=== PATIENT | female | born 1960 | race Caucasian/White ===

== ENCOUNTER 2025-07-08 10:15 | Inpatient (IN) | payer OTHER, SELFPAY ==
[2025-07-08] VITALS (8 sets, daily range): BP systolic 118–139; BP diastolic 64–73; PULSE 65–95; RESP 16; TEMP 36.8–38; O2SAT 93–99; BMI 24.8; BMI 24.7
--- NOTE | 2025-07-08 10:37 | CT_ITS ---
PROCEDURE: ABDOMEN/PELVIS W IV CONT ONLY 07/08/2025 REASON FOR EXAM: LOWER ABD PAIN TECHNIQUE: Procedure Code: [id number] Modality: CT Procedure: ABDOMEN/PELVIS W IV CONT ONLY Coronal and Sagittal reconstruction series were provided. CONTRAST: Isovue 370 VOLUME: 100 mL One or more dose reduction techniques were used (e.g., Automated exposure control, adjustment of the mA and/or kV according to patient size, use of iterative reconstruction technique. RADIATION DOSE SUMMARY: CTDlvol: 15.35 mGy DLP: 1137.56 mGycm COMPARISON: None. FINDINGS: Lung bases: Liver: Hepatomegaly with the liver measures 20 cm in length. Gallbladder: Cholelithiasis. No biliary dilation. Spleen: Unremarkable. Pancreas: Unremarkable. Adrenals: Unremarkable. Kidneys: No hydronephrosis. No nephrolithiasis. Bladder: Unremarkable. Reproductive Organs: Unremarkable. Bowel: Extensive sigmoid colon diverticulosis with mural wall thickening consistent with acute diverticulitis. Appendix: Normal. Lymph nodes: No lymphadenopathy. Vasculature: No aneurysm. Atherosclerotic calcifications. Peritoneum / Retroperitoneum: A 2.6 x 2.3 x 2.3 cm collection with fluid and air in the pelvis. Another more anterior 3.4 x 2.5 x 2.6 cm collection contains air and fluid in the pelvis consistent with abscess and surrounded by peritoneal fat stranding. No free air. Bones: No acute bony abnormalities. CT/Abdomen/Pelvis W IV Cont ONLY IMPRESSION: Acute sigmoid diverticulitis with two pelvic abscesses measuring 2.3 x 2.3 x 2. 3 cm and 3.4 x 2.5 x 2.6 cm. Cholelithiasis. Reading Location: [id number]
--- NOTE | 2025-07-08 10:39 | EDS_ITS ---
HPI History of Present Illness Chief Complaint: Complaint Narrative Narrative: Patient is a 65-year-old female presenting to the emergency department for lower abdominal cramping and decreased appetite. Patient arrives here with . He helps provide history along with patient. They state that Friday about 10 days ago she developed "flulike symptoms". States that she went to the doctor on Friday and had labs done that showed "dehydration" and was given 2 L of fluids. Was instructed to continue drinking lots of fluids at home. She feels like she is drinking a significant fluids but has no appetite. States that about 3 to 4 days ago she developed lower abdominal cramping that comes and goes. She has been taking Motrin for pain control. Denies any known fever. She is reporting chills. Endorses some mild nausea with no vomiting. Denies any chest pain or shortness of breath. Reports nonbloody diarrhea about 2-3 episodes a day. Denies any dysuria, hematuria, urgency or frequency. States she feels when she is urinating she is only "dribbling". [facility] Medical History High cholesterol Hypertension Home Medications Medication Instructions Recorded Last Taken Type atorvastatin 40 mg tablet (Lipitor) 40 mg PO DAILY hig h cholesterol 07/08/25 07/04/25 22:00 History 40 mg telmisartan 40 mg tablet (Micardis) 40 mg PO DAILY HTN 07/08/25 07/08/25 10:00 History 40 mg Allergy/AdvReac Type Severity Reaction Status Date / Time No Known Allergies Allergy Verified 07/08/25 10:22 Social History Smoking Status: Never smoker ROS ROS ED ROS Narrative See HPI EXAM Physical Exam Narrative Exam Narrative: Vital signs: Reviewed General: Alert and oriented x 3. No acute distress HEENT: Head is normocephalic and atraumatic, sinuses nontender, pupils equal round and reactive. Nares are patent. Oropharynx and throat exams normal. Neck: Supple without lymphadenopathy nontender Cardiovascular: Regular rate and rhythm, no murmurs. No rubs or gallops. Normal S1 and S2 Respiratory: Clear to auscultation bilaterally. No wheezes, rales, rhonchi Abdominal: Soft and mildly tender to palpation in the lower abdomen nothing focal. Normal bowel sounds. No guarding or rebound. Nonsurgical abdomen Extremities: No tenderness. No bruising. Normal range of motion. Normal se nsation. Skin: No rash or redness. Neurological: Cranial nerves II through XII are grossly intact. Normal strength and sensation. Normal cerebellar function The rest of the physical exam is unremarkable Const Vital Signs: 07/08/25 10:19 07/08/25 10:21 07/08/25 11:21 Temperature 98.7 F 98.7 F 98.6 F Temperature Source Oral Oral Oral Pulse Rate 75 75 65 Respiratory Rate 16 16 16 Blood Pressure 139/66 H 139/66 H 118/64 Blood Pressure Mean 90 90 82 Pulse Ox 99 99 99 Oxygen Delivery Method Room Air Room Air Room Air 07/08/25 12:00 Temperature 98.6 F Temperature Source Oral Pulse Rate 65 Respiratory Rate 16 Blood Pressure 120/64 Blood Pressure Mean 82 Pulse Ox 99 Oxygen Delivery Method MDM MDM MDM Narrative Medical decision making narrative: Patient is a 65-year-old female presenting to the emergency department for lower abdominal cramping, decreased appetite and decreased urination. Patient was seen and examined. Vitals are stable. Patient resting bed comfortably no acute distress. Fluid bolus started. Labs and CT imaging ordered given patient's age and symptoms. CBC with leukocytosis of 20.2 and anemia of 9.9. CMP with mild elevation in total bilirubin of 1.73, elevated AST, ALT and alk phos mildly. No RUQ pain on exam, this can further be evaluated while patient is admitted with gallbladder US if surgery or hospitalist thinks it is necessary to further evaluate. Lipase within normal limits. Urinalysis with 100 leukocyte esterase however no other signs of infection. CT abdomen pelvis shows acute sigmoid diverticulitis with 2 pelvic abscesses. There is cholelithiasis but no biliary dilatation to be consistent with choledocholithiasis. Zosyn given. No signs of sepsis. General surgery consulted. Dr. Smith recommended medicine admission and surgery will be on consult. He reports that the abscesses are too central to be IR drained. Discussed patient with Dr. Hernandez for admission and he accepted the patient. Patient and at bedside updated on the lab and imaging findings. They are agreeable with admission. Clinical impression: Complicated diverticulitis History & Record Review Discussion w/independent historian: Patient and Significant other Lab Data Attestation: I reviewed the patient's lab results. Labs: Laboratory Results - last 24 hr 07/08/25 07/08/25 10:40 10:50 WBC 20.2 H RBC 3.35 L Hgb 9.9 L Hct 29.8 L MCV 89.0 MCH 29.6 MCHC 33.2 RDW Std Deviation 48.5 H RDW Coeff of Crescencio 14.8 H Plt Count 287 MPV 10.3 Immature Gran % (Auto) 2.800 H Neut % (Auto) 79.3 H Lymph % (Auto) 11.4 L [place] % (Auto) 5.3 Eos % (Auto) 0.8 Baso % (Auto) 0.4 Absolute Neuts (auto) 16.1 H Absolute Lymphs (auto) 2.30 Nucleated RBC % 0 Sodium 139 Potassium 3.7 Chloride 100 Carbon Dioxide 26.7 Anion Gap 12 BUN 10 Creatinine 0.72 Estim Creat Clear Calc 73.66 Est GFR (MDRD) Non-Af 94 BUN/Creatinine Ratio 13.3 Glucose 109 H Calcium 9.5 Total Bilirubin 1.73 H Direct Bilirubin 1.09 H AST 44 H ALT 62 H Alkaline Phosphatase 197 H Total Protein 7.8 Albumin 3.6 Globulin 4.1 Lipase 18 Urine Color Yellow Urine Clarity Sl. Cloudy Urine pH 7.0 Ur Specific [place] 1.005 Urine Protein Negative Urine Glucose (UA) Normal Urine Ketones Negative Urine Occult Blood 10 H Urine Nitrite Negative Urine Bilirubin Negative Urine Urobilinogen Normal Ur Leukocyte Esterase 100 H Urine RBC 0-5 SEEN Urine WBC 0-5 SEEN Ur Squamous Epith Cells 0-5 SEEN Urine Bacteria 0 SEEN Urine Mucus 0 SEEN Radiography Diagnostic Testing: Clinical Impression(s) from Imaging Studies Abdomen/Pelvis CT 07/08/25 10:37 IMPRESSION: Acute sigmoid diverticulitis with two pelvic abscesses measuring 2.3 x 2.3 x 2.3 cm and 3.4 x 2.5 x 2.6 cm. Cholelithiasis. Reading [facility] Discharge Plan Disposition Disposition: Acute Care Hospital [facility] Discharge Date/Time: 07/08/25 13:02
[2025-07-08] MEDS: 0.9% Normal Saline (1000mL) 1,000 ML 999 ML IV (10:45)
[2025-07-08 10:47] LABS: Hematocrit 29.8 % (37-47); Hemoglobin 9.9 g/dL (12.0-15.0); Immature Granulocytes Count 0.570 X10^3/uL (0.0-0.0); Mean Corp Hgb Conc 33.2 g/dL (32-36); Mean Corpuscular Volume 89.0 fL (81-99); Mean Platelet Vol. 10.3 fl (6.2-12.0); NRBC Flagged by Analyzer 0 % (0-5); Platelet Count 287 K/mm3 (150-450); RBC Distribution Width CV 14.8 % (11.6-14.6); RBC Distribution Width SD 48.5 fl (35.1-43.9); Red Blood Count 3.35 M/mm3 (4.2-5.4); White Blood Count 20.2 K/mm3 (4.4-11.0)
[2025-07-08 10:52] LABS: Mucous, Urine 0 SEEN /hpf (<or=2+)
[2025-07-08 10:55] LABS: Color, Urine Yellow (Yellow); Glucose, Dipstick Normal (Normal); Ketone-Dipstick Negative (Negative); Leukocyte Esterase-Dipstick 100 /ul (Negative); Nitrite-Dipstick Negative (Negative); Occult Blood-Urine 10 /ul (Negative); Protein-Dipstick Negative (Negative); Specific Gravity, Urine 1.005 (1.002-1.030); Urine Bilirubin Dipstick Negative (Negative)
[2025-07-08 11:02] LABS: Squamous Epithelial Cells - UA 0-5 SEEN /hpf (5-10)
[2025-07-08 11:03] LABS: Red Blood Cells-Urine 0-5 SEEN /hpf (0-5)
[2025-07-08 11:23] LABS: AST(SGOT) 44 U/L (<=31); Alanine Aminotransfer ALT/SGPT 62 U/L (<=34); Albumin, Serum 3.6 g/dL (3.4-4.8); Alkaline Phosphatase 197 U/L (35-104); Anion Gap 12 (5-15); BUN 10 mg/dL (4-19); BUN/Creat Ratio 13.3 RATIO (10-20); Bilirubin, Direct 1.09 mg/dL (0.00-0.30); Calcium,Total 9.5 mg/dL (7.6-11.0); Carbon Dioxide 26.7 mmol/L (21.0-32.0); Chloride 100 mmol/L (98-108); Estimated Creatinine Clearance 73.66 ml/min (50-250); Globulin 4.1 g/dL (2.2-4.2); Glucose 109 mg/dL (70-99); Lipase 18 U/L (13-75); Potassium 3.7 mmol/L (3.3-5.1)
[2025-07-08] MEDS: Piperacil/Tazobactam 3.375 GM in 0.9% Normal Saline (50mL MB+) 50 ML IV ×2 (12:07→21:01)
[2025-07-08] MEDS: 0.9% Normal Saline (1000mL) 1,000 ML 150 ML IV (13:48)
--- NOTE | 2025-07-08 14:50 | HP.PCM.HOS_ITS ---
HPI - General General Date of Admission: 07/08/25 Date of Service: 07/08/25 Chief Complaint: Abdominal pain HPI Narrative TOOTIE GOLDMAN, is a 65 F who presents with abdominal pain. This is a 65-year-old female with a history of hypertension presents with 10 days of not feeling well. Has had decreased appetite, increased abdominal pressure in the suprapubic region. [place] that she was having urinary tract infection and with a not getting better, she presented to the emergency room for evaluation. She underwent a CAT scan that showed diverticulitis as well as to abscesses, one 2 cm and the other 3 cm. Patient received pip-tazo in the emergency room. General surgery was contacted and recommended medical management this time and no imminent need for surgery at this time. Discussed with Dr. Smith, who reviewed the images and did not feel that these were not accessible via IR. [ ] [facility] Medical History High cholesterol Hypertension Home Medications Medication Instructions Recorded Last Taken Type atorvastatin 40 mg tablet (Lipitor) 40 mg PO DAILY hig h cholesterol 07/08/25 07/04/25 22:00 History 40 mg telmisartan 40 mg tablet (Micardis) 40 mg PO DAILY HTN 07/08/25 07/08/25 10:00 History 40 mg Allergy/AdvReac Type Severity Reaction Status Date / Time No Known Allergies Allergy Verified 07/08/25 10:22 Social History Smoking Status: Never smoker ROS ROS Narrative No nausea or vomiting. Has been having diarrhea. Urinary frequency. All review of systems were negative except as mentioned above in the history of present illness and the other review of systems. Vital Signs Vital Signs Vital Signs: 07/08/25 10:19 07/08/25 10:21 07/08/25 11:21 Temperature 37.1 C 37.1 C 37.0 C Temperature Source Oral Oral Oral Pulse Rate 75 75 65 Respiratory Rate 16 16 16 Blood Pressure 139/66 H 139/66 H 118/64 Blood Pressure Mean 90 90 82 Blood Pressure Source Blood Pressure Position Blood Pressure Location Pulse Ox 99 99 99 Oxygen Delivery Method Room Air Room Air Room Air 07/08/25 12:00 07/08/25 12:30 07/08/25 12:36 Temperature 37.0 C 37.0 C Temperature Source Oral Pulse Rate 65 71 71 Respiratory Rate 16 16 16 Blood Pressure 120/64 123/73 H 123/73 H Blood Pressure Mean 82 89 89 Blood Pressure Source Blood Pressure Position Blood Pressure Location Pulse Ox 99 98 98 Oxygen Delivery Method Room Air 07/08/25 13:33 Temperature 36.8 C Temperature Source Oral Pulse Rate 95 Respiratory Rate 16 Blood Pressure 137/64 H Blood Pressure Mean 88 Blood Pressure Source Monitor Blood Pressure Position Semi-Fowlers Blood Pressure Location Left Arm Pulse Ox 95 Oxygen Delivery Method Room Air Weight Weight: 65.7 kg Body Mass Index (BMI) 24.7 Physical Exam Const alert and no apparent distress HEENT normocephalic and head/scalp atraumatic Resp normal respiratory effort, no retractions, no use of accessory muscles and clear to auscultation bilaterally Cardio regular rate, regular rhythm, S1 normal heart sound and S2 normal heart sound GI normal to inspection, nondistended, normoactive bowel sounds, soft to palpation and non-distended GI Narrative: tender to palpitations in suprapubic region. Neuro Sensorium / Orientation: awake and alert Results Lab / Micro Data 07/08/25 10:40 07/08/25 10:40 Labs: Laboratory Results - last 24 hr 07/08/25 10:40: WBC 20.2 H, RBC 3.35 L, Hgb 9.9 L, Hct 29.8 L, MCV 89.0, MCH 29.6, MCHC 33.2, RDW Std Deviation 48.5 H, RDW Coeff of Crescencio 14.8 H, Plt Count 287, MPV 10.3, Immature Gran % (Auto) 2.800 H, Neut % (Auto) 79.3 H, Lymph % (Auto) 11.4 L, [place] % (Auto) 5.3, Eos % (Auto) 0.8, Baso % (Auto) 0.4, Absolute Neuts (auto) 16.1 H, Absolute Lymphs (auto) 2.30, Nucleated RBC % 0, Sodium 139, Potassium 3.7, Chloride 100, Carbon Dioxide 26.7, Anion Gap 12, BUN 10, Creatinine 0.72, Estim Creat Clear Calc 73.66, Est GFR (MDRD) Non-Af 94, BUN/Creatinine Ratio 13.3, Glucose 109 H, Calcium 9.5, Total Bilirubin 1.73 H, D irect Bilirubin 1.09 H, AST 44 H, ALT 62 H, Alkaline Phosphatase 197 H, Total Protein 7.8, Albumin 3.6, Globulin 4.1, Lipase 18 07/08/25 10:50: Urine Color Yellow, Urine Clarity Sl. Cloudy, Urine pH 7.0, Ur Specific [place] 1.005, Urine Protein Negative, Urine Glucose (UA) Normal, Urine Ketones Negative, Urine Occult Blood 10 H, Urine Nitrite Negative, Urine Bilirubin Negative, Urine Urobilinogen Normal, Ur Leukocyte Esterase 100 H, Urine RBC 0-5 SEEN, Urine WBC 0-5 SEEN, Ur Squamous Epith Cells 0-5 SEEN, Urine Bacteria 0 SEEN, Urine Mucus 0 SEEN Imaging Radiology Impression Abdomen/Pelvis CT 07/08/25 10:37 IMPRESSION: Acute sigmoid diverticulitis with two pelvic abscesses measuring 2.3 x 2.3 x 2.3 cm and 3.4 x 2.5 x 2.6 cm. Cholelithiasis. Reading Location: [facility] Assessment & Plan Assessment/Plan (1) Diverticulitis: PLAN: With abscesses Discussed with Dr. Smith of general surgery. No plans for any surgery at this time. The abscesses are not amenable to IR drainage given their location Continue with pip-tazo Clear liquid diet PLAN: Plan Hypertension controlled. Continue with antihypertensives Hyperlipidemia: Continue with statin VTE prophylaxis with Lovenox CODE STATUS: Addressed with the patient patient wished to be full code. Charges/Coding Visit Charges Inpatient E&M: 97505 Init Hosp L2
--- NOTE | 2025-07-08 14:59 | CON.PCM.SX_ITS ---
Assessment & Plan Assessment/Plan (1) Diverticulitis: PLAN: Plan The patient is a 65-year-old female who presented to the emergency department earlier today with 10-day history of abdominal pain. Workup in the ER has revealed sigmoid diverticulitis but is to abscesses each measuring about 3 cm. Because of the location, these do not appear to be amenable to percutaneous drainage. They seem small enough that they will likely resolve with antibiotics. Plan is to have her admitted to medicine service. She will be placed on IV antibiotics. We will continue to follow along and advise accordingly. Her last colonoscopy was about a year and a half ago. She did have polyps at that time. No previous episodes of diverticulitis. HPI Consult Data Date of Consult: 07/08/25 HPI Narrative HPI Narrative: TOOTIE GOLDMAN, is a 65 F who presented to the [facility] emergency department earlier today with about a 10-day history of lower abdominal cramping, pain and diminished appetite. The patient and her stated that about 10 days ago she developed what they described as "flulike symptoms". They stated they had multiple family members who recently had similar symptoms and so they felt that this was likely related to flulike illness. Her symptoms abdominal pain began about 3 to 4 days ago. She stated that this pain was somewhat crampy and seemed to come and go. She did develop some subjective fevers and chills. She presented to the emergency department today where she was seen evaluated by the ER staff. Blood work indicated a leukocytosis with a white blood cell count of about 20,000. CT scan was performed and showed findings consistent with sigmoid diverticulitis with 2 abscesses. These abscesses measured approximately 3 cm each. These were fairly centrally located and did not seem to be readily accessible by CT-guided drainage. [facility] Medical History High cholesterol Hypertension Home Medications Medication Instructions Recorded Last Taken Type atorvastatin 40 mg tablet (Lipitor) 40 mg PO DAILY hig h cholesterol 07/08/25 07/04/25 22:00 History 40 mg telmisartan 40 mg tablet (Micardis) 40 mg PO DAILY HTN 07/08/25 07/08/25 10:00 History 40 mg Allergy/AdvReac Type Severity Reaction Status Date / Time No Known Allergies Allergy Verified 07/08/25 10:22 Social History Smoking Status: Never smoker Physical Exam Narrative She is alert and oriented x 3 she is in no acute distress. She does not appear to be ill-appearing/toxic. Head is normocephalic and atraumatic. Her pupils equal round and reactive to light Abdomen is soft, nondistended. She does have mild left lower quadrant tenderness with deep palpation. No rebound or guarding. No wincing. This does not appear to be a surgical abdomen Medical Records Data Attestation: I reviewed the patient's medical records Lab / Micro Data Attestation: I reviewed the patient's lab results. 07/08/25 10:40 07/08/25 10:40 Labs: Laboratory Results - last 24 hr 07/08/25 10:40: WBC 20.2 H, RBC 3.35 L, Hgb 9.9 L, Hct 29.8 L, MCV 89.0, MCH 29.6, MCHC 33.2, RDW Std Deviation 48.5 H, RDW Coeff of Crescencio 14.8 H, Plt Count 287, MPV 10.3, Immature Gran % (Auto) 2.800 H, Neut % (Auto) 79.3 H, Lymph % (Auto) 11.4 L, [place] % (Auto) 5.3, Eos % (Auto) 0.8, Baso % (Auto) 0.4, Absolute Neuts (auto) 16.1 H, Absolute Lymphs (auto) 2.30, Nucleated RBC % 0, Sodium 139, Potassium 3.7, Chloride 100, Carbon Dioxide 26.7, Anion Gap 12, BUN 10, Creatinine 0.72, Estim Creat Clear Calc 73.66, Est GFR (MDRD) Non-Af 94, BUN/Creatinine Ratio 13.3, Glucose 109 H, Calcium 9.5, Total Bilirubin 1.73 H, D irect Bilirubin 1.09 H, AST 44 H, ALT 62 H, Alkaline Phosphatase 197 H, Total Protein 7.8, Albumin 3.6, Globulin 4.1, Lipase 18 07/08/25 10:50: Urine Color Yellow, Urine Clarity Sl. Cloudy, Urine pH 7.0, Ur Specific [place] 1.005, Urine Protein Negative, Urine Glucose (UA) Normal, Urine Ketones Negative, Urine Occult Blood 10 H, Urine Nitrite Negative, Urine Bilirubin Negative, Urine Urobilinogen Normal, Ur Leukocyte Esterase 100 H, Urine RBC 0-5 SEEN, Urine WBC 0-5 SEEN, Ur Squamous Epith Cells 0-5 SEEN, Urine Bacteria 0 SEEN, Urine Mucus 0 SEEN Imaging Radiology Impression Abdomen/Pelvis CT 07/08/25 10:37 IMPRESSION: Acute sigmoid diverticulitis with two pelvic abscesses measuring 2.3 x 2.3 x 2.3 cm and 3.4 x 2.5 x 2.6 cm. Cholelithiasis. Reading Location: [id number] Charges/Coding Visit Charges Inpatient E&M: 88697 Init Hosp L3
[2025-07-08] MEDS: 0.9% Saline Lock 10 ML Syringe IV (16:59)
[2025-07-09 00:03] VITALS: BP 116/61; PULSE 64; RESP 16; TEMP 36.8; O2SAT 97
[2025-07-09 03:37] VITALS: BP 125/67; PULSE 70; RESP 16; TEMP 36.9; O2SAT 98
[2025-07-09] MEDS: Piperacil/Tazobactam 3.375 GM in 0.9% Normal Saline (50mL MB+) 50 ML IV ×3 (05:20→21:43)
[2025-07-09 06:55] LABS: Hematocrit 25.0 % (37-47); Hemoglobin 8.2 g/dL (12.0-15.0); Immature Granulocytes Count 0.270 X10^3/uL (0.0-0.0); Mean Corp Hgb Conc 32.8 g/dL (32-36); Mean Corpuscular Volume 91.2 fL (81-99); Mean Platelet Vol. 10.5 fl (6.2-12.0); NRBC Flagged by Analyzer 0 % (0-5); Platelet Count 230 K/mm3 (150-450); RBC Distribution Width CV 14.9 % (11.6-14.6); RBC Distribution Width SD 50.3 fl (35.1-43.9); Red Blood Count 2.74 M/mm3 (4.2-5.4); White Blood Count 15.9 K/mm3 (4.4-11.0)
[2025-07-09 07:21] LABS: Anion Gap 9 (5-15); BUN 11 mg/dL (4-19); BUN/Creat Ratio 16.1 RATIO (10-20); Calcium,Total 8.4 mg/dL (7.6-11.0); Carbon Dioxide 23.3 mmol/L (21.0-32.0); Chloride 105 mmol/L (98-108); Estimated Creatinine Clearance 75.75 ml/min (50-250); Glucose 81 mg/dL (70-99); Potassium 3.4 mmol/L (3.3-5.1)
--- NOTE | 2025-07-09 07:27 | PCM.PN.HOSP ---
Reason for Visit Chief Complaint: Abdominal pain Subjective Subjective Feeling better. Tolerating clear liquid diet. Objective Data Objective Data Vital Signs: Vital Signs Temp Pulse Resp BP Pulse Ox O2 Del Method 36.9 C 70 16 125/67 H 98 Room Air 07/09/25 03:37 07/09/25 03:37 07/09/25 03:37 07/09/25 03:37 07/09/25 03:37 07/09/25 03:37 Oxygen Delivery Method Room Air Weight: 65.7 kg Body Mass Index (BMI) 24.7 Intake & Output: Intake and Output for Last 24 Hours 07/07/25 07/08/25 07/09/25 23:59 23:59 23:59 Intake Total 2049 250 / 250 Balance 2049 250 / 250 Lab / Micro Data 07/09/25 06:41 07/09/25 06:45 Labs: Laboratory Results - last 24 hr 07/08/25 10:40: WBC 20.2 H, RBC 3.35 L, Hgb 9.9 L, Hct 29.8 L, MCV 89.0, MCH 29.6, MCHC 33.2, RDW Std Deviation 48.5 H, RDW Coeff of Crescencio 14.8 H, Plt Count 287, MPV 10.3, Immature Gran % (Auto) 2.800 H, Neut % (Auto) 79.3 H, Lymph % (Auto) 11.4 L, [place] % (Auto) 5.3, Eos % (Auto) 0.8, Baso % (Auto) 0.4, Absolute Neuts (auto) 16.1 H, Absolute Lymphs (auto) 2.30, Nucleated RBC % 0, Sodium 139, Potassium 3.7, Chloride 100, Carbon Dioxide 26.7, Anion Gap 12, BUN 10, Creatinine 0.72, Estim Creat Clear Calc 73.66, Est GFR (MDRD) Non-Af 94, BUN/Creatinine Ratio 13.3, Glucose 109 H, Calcium 9.5, Total Bilirubin 1.73 H, Direct Bilirubin 1.09 H, AST 44 H, ALT 62 H, Alkaline Phosphatase 197 H, Total Protein 7.8, Albumin 3.6, Globulin 4.1, Lipase 18 07/08/25 10:50: Urine Color Yellow, Urine Clarity Sl. Cloudy, Urine pH 7.0, Ur Specific [place] 1.005, Urine Protein Negative, Urine Glucose (UA) Normal, Urine Ketones Negative, Urine Occult Blood 10 H, Urine Nitrite Negative, Urine Bilirubin Negative, Urine Urobilinogen Normal, Ur Leukocyte Esterase 100 H, Urine RBC 0-5 SEEN, Urine WBC 0-5 SEEN, Ur Squamous Epith Cells 0-5 SEEN, Urine Bacteria 0 SEEN, Urine Mucus 0 SEEN 07/09/25 06:41: WBC 15.9 H, RBC 2.74 L, Hgb 8.2 L, Hct 25.0 L, MCV 91.2, MCH 29.9, MCHC 32.8, RDW Std Deviation 50.3 H, RDW Coeff of Crescencio 14.9 H, Plt Count 230, MPV 10.5, Immature Gran % (Auto) 1.700 H, Neut % (Auto) 79.7 H, Lymph % (Auto) 11.6 L, [place] % (Auto) 5.2, Eos % (Auto) 1.3, Baso % (Auto) 0.5, Absolute Neuts (auto) 12.7 H, Absolute Lymphs (auto) 1.85, Nucleated RBC % 0 07/09/25 06:45: Sodium 138, Potassium 3.4, Chloride 105, Carbon Dioxide 23.3, Anion Gap 9, BUN 11, Creatinine 0.70, Estim Creat Clear Calc 75.75, Est GFR (MDRD) Non-Af 97, BUN/Creatinine Ratio 16.1, Glucose 81, Calcium 8.4 Radiography Diagnostic Testing: Radiology Impression Abdomen/Pelvis CT 07/08/25 10:37 IMPRESSION: Acute sigmoid diverticulitis with two pelvic abscesses measuring 2.3 x 2.3 x 2.3 cm and 3.4 x 2.5 x 2.6 cm. Cholelithiasis. Reading Location: [facility] Physical Exam Const alert and no apparent distress HEENT head/scalp atraumatic and moist oral mucous membranes Resp normal respiratory effort, no retractions, no use of accessory muscles and clear to auscultation bilaterally Cardio regular rate, regular rhythm, S1 normal heart sound and S2 normal heart sound GI GI Narrative: slight distention and suprapubic tenderness. Assessment & Plan Assessment/Plan (1) Diverticulitis: PLAN: With abscesses Discussed with Dr. Smith of general surgery. No plans for any surgery at this time. The abscesses are not amenable to IR drainage given their location Continue with pip-tazo Advance diet to full liquids. PLAN: Plan Leukocytosis: improved. Down from 20 to 15. Hypertension controlled. Continue with antihypertensives Hyperlipidemia: Continue with statin VTE prophylaxis with Lovenox CODE STATUS: Addressed with the patient patient wished to be full code. DW family at bedisde Charges/Coding Visit Charges Inpatient E&M: 34282 Subs Hosp L2
[2025-07-09 08:00] VITALS: BP 120/70; PULSE 66; RESP 17; TEMP 36.6; O2SAT 100
[2025-07-09] MEDS: 0.9% Saline Lock 10 ML Syringe IV ×2 (08:04→13:18)
--- NOTE | 2025-07-09 09:30 | CASEMGMT ---
Dx: Diverticulitis LACE: 1 6-Clicks:24 Medical record reviewed and patient evaluated for identification of discharge planning needs. Based on this review, at this time criteria are not present to indicate a need for discharge planning. Will remain available to assist with discharge planning needs as identified or requested.
--- NOTE | 2025-07-09 13:15 | PCM.PN.SRG ---
Subjective Subjective Patient seen and evaluated on rounds. Patient states that she is feeling much better today compared to yesterday. No fevers or chills. Abdominal discomfort much less than yesterday. Tolerating diet Objective Data Objective Data Vital Signs: Vital Signs Temp Pulse Resp BP Pulse Ox O2 Del Method 98 F 66 17 120/70 100 Room Air 07/09/25 08:00 07/09/25 08:00 07/09/25 08:00 07/09/25 08:00 07/09/25 08:00 07/09/25 08:00 Oxygen Delivery Method Room Air Weight: 144 lb 13.499 oz Body Mass Index (BMI) 24.7 Intake & Output: Intake and Output for Last 24 Hours 07/07/25 07/08/25 07/09/25 23:59 23:59 23:59 Intake Total 2049 450 / 450 Balance 2049 450 / 450 Lab / Micro Data 07/09/25 06:41 07/09/25 06:45 Labs: Laboratory Results - last 24 hr 07/09/25 06:41: WBC 15.9 H, RBC 2.74 L, Hgb 8.2 L, Hct 25.0 L, MCV 91.2, MCH 29.9, MCHC 32.8, RDW Std Deviation 50.3 H, RDW Coeff of Crescencio 14.9 H, Plt Count 230, MPV 10.5, Immature Gran % (Auto) 1.700 H, Neut % (Auto) 79.7 H, Lymph % (Auto) 11.6 L, [place] % (Auto) 5.2, Eos % (Auto) 1.3, Baso % (Auto) 0.5, Absolute Neuts (auto) 12.7 H, Absolute Lymphs (auto) 1.85, Nucleated RBC % 0 07/09/25 06:45: Sodium 138, Potassium 3.4, Chloride 105, Carbon Dioxide 23.3, Anion Gap 9, BUN 11, Creatinine 0.70, Estim Creat Clear Calc 75.75, Est GFR (MDRD) Non-Af 97, BUN/Creatinine Ratio 16.1, Glucose 81, Calcium 8.4 Physical Exam Narrative She is alert and oriented x 3. She is in no acute distress. Abdomen is soft, mildly tender in the left lower quadrant. No rebound or guarding Assessment & Plan Assessment/Plan (1) Diverticulitis: PLAN: Plan The patient is a 65-year-old female with sigmoid diverticulitis with 2 associated abscesses each measuring about 3 cm. These are not amenable to percutaneous drainage based on location. Clinically she seems to be improving on IV antibiotics alone. Would recommend continued IV antibiotics for at least another day or 2. Will likely recommend discharge on oral antibiotics and low fiber diet for the next 3 to 4 weeks, followed by a high-fiber diet. Last colonoscopy was about a year and a half ago. Would recommend outpatient follow-up to document resolution of abscesses Charges/Coding Visit Charges Inpatient E&M: 49851 Subs Hosp L3
[2025-07-09 14:15] VITALS: BP 118/61; PULSE 75; RESP 17; TEMP 36.6; O2SAT 98
[2025-07-09 21:22] VITALS: BP 129/52; PULSE 75; RESP 16; TEMP 36.9; O2SAT 98
[2025-07-09 21:25] VITALS: O2SAT 98
[2025-07-10 02:59] VITALS: BP 141/71; PULSE 76; RESP 16; TEMP 36.8; O2SAT 98
[2025-07-10 05:44] LABS: Hematocrit 24.3 % (37-47); Hemoglobin 8.0 g/dL (12.0-15.0); Immature Granulocytes Count 0.180 X10^3/uL (0.0-0.0); Mean Corp Hgb Conc 32.9 g/dL (32-36); Mean Corpuscular Volume 90.3 fL (81-99); Mean Platelet Vol. 10.7 fl (6.2-12.0); NRBC Flagged by Analyzer 0 % (0-5); Platelet Count 249 K/mm3 (150-450); RBC Distribution Width CV 14.6 % (11.6-14.6); RBC Distribution Width SD 48.0 fl (35.1-43.9); Red Blood Count 2.69 M/mm3 (4.2-5.4); White Blood Count 13.3 K/mm3 (4.4-11.0)
[2025-07-10] MEDS: Piperacil/Tazobactam 3.375 GM in 0.9% Normal Saline (50mL MB+) 50 ML IV ×2 (05:49→13:02)
[2025-07-10 06:02] LABS: Anion Gap 11 (5-15); BUN 10 mg/dL (4-19); BUN/Creat Ratio 15.8 RATIO (10-20); Calcium,Total 8.2 mg/dL (7.6-11.0); Carbon Dioxide 22.6 mmol/L (21.0-32.0); Chloride 103 mmol/L (98-108); Estimated Creatinine Clearance 85.53 ml/min (50-250); Glucose 75 mg/dL (70-99); Potassium 3.3 mmol/L (3.3-5.1)
--- NOTE | 2025-07-10 07:43 | PN.HOSP_ITS ---
Reason for Visit Chief Complaint: Abdominal pain Subjective Subjective Feeling well. No new events. Objective Data Objective Data Vital Signs: Vital Signs Temp Pulse Resp BP Pulse Ox O2 Del Method 36.8 C 76 16 141/71 H 98 Room Air 07/10/25 02:59 07/10/25 02:59 07/10/25 02:59 07/10/25 02:59 07/10/25 02:59 07/10/25 02:59 Oxygen Delivery Method Room Air Weight: 65.7 kg Body Mass Index (BMI) 24.7 Intake & Output: Intake and Output for Last 24 Hours 07/08/25 07/09/25 07/10/25 23:59 23:59 23:59 Intake Total 0 / 0 500 / 500 1050 / 1050 Balance 2049 / 0 500 / 500 1050 / 1050 Lab / Micro Data 07/10/25 05:25 07/10/25 05:25 Labs: Laboratory Results - last 24 hr 07/10/25 05:25: WBC 13.3 H, RBC 2.69 L, Hgb 8.0 L, Hct 24.3 L, MCV 90.3, MCH 29.7, MCHC 32.9, RDW Std Deviation 48.0 H, RDW Coeff of Crescencio 14.6, Plt Count 249, MPV 10.7, Immature Gran % (Auto) 1.400 H, Neut % (Auto) 77.7 H, Lymph % (Auto) 13.8 L, [place] % (Auto) 5.0, Eos % (Auto) 1.6, Baso % (Auto) 0.5, Absolute Neuts (auto) 10.4 H, Absolute Lymphs (auto) 1.84, Nucleated RBC % 0, Sodium 137, Potassium 3.3, Chloride 103, Carbon Dioxide 22.6, Anion Gap 11, BUN 10, C reatinine 0.62 L, Estim Creat Clear Calc 85.53, Est GFR (MDRD) Non-Af 99, BUN/Creatinine Ratio 15.8, Glucose 75, Calcium 8.2 Physical Exam Const alert and no apparent distress HEENT head/scalp atraumatic and moist oral mucous membranes Resp normal respiratory effort and no retractions Cardio regular rate, regular rhythm, S1 normal heart sound and S2 normal heart sound GI normal to inspection, nondistended, normoactive bowel sounds, soft to palpation, non-tender and non-distended Extremity normal to inspection and full ROM Neuro Sensorium / Orientation: awake and alert Assessment & Plan Assessment/Plan (1) Diverticulitis: PLAN: Improving. With abscesses No plans for any surgery at this time. The abscesses are not amenable to IR drainage given their location Continue with pip-tazo Advance diet to transition. Will reevaluate to see if patient would require more time in the hospital. PLAN: Plan Leukocytosis: improved. Down from 20 to 15. Hypertension controlled. Continue with antihypertensives Hyperlipidemia: Continue with statin VTE prophylaxis with Lovenox CODE STATUS: Addressed with the patient patient wished to be full code. DW patient's at bedside. Charges/Coding Visit Charges Inpatient E&M: 39780 Subs Hosp L2
[2025-07-10 08:14] VITALS: BP 142/71; PULSE 68; RESP 16; TEMP 36.8; O2SAT 95
--- NOTE | 2025-07-10 11:36 | PCM.PN.SRG ---
Subjective Subjective Patient seen and evaluated on rounds this morning. Patient continues to feel good. Minimal abdominal discomfort at this point. She has been tolerating diet. White count continues to trend downward. Objective Data Objective Data Vital Signs: Vital Signs Temp Pulse Resp BP Pulse Ox O2 Del Method 98.2 F 68 16 142/71 H 95 Room Air 07/10/25 08:14 07/10/25 08:14 07/10/25 08:14 07/10/25 08:14 07/10/25 08:14 07/10/25 08:15 Oxygen Delivery Method Room Air Weight: 144 lb 13.499 oz Body Mass Index (BMI) 24.7 Intake & Output: Intake and Output for Last 24 Hours 07/08/25 07/09/25 07/10/25 23:59 23:59 23:59 Intake Total 0 / 0 500 / 500 1100 / 1100 Balance 0 / 2250 500 / 500 1100 / 1100 Lab / Micro Data 07/10/25 05:25 07/10/25 05:25 Labs: Laboratory Results - last 24 hr 07/10/25 05:25: WBC 13.3 H, RBC 2.69 L, Hgb 8.0 L, Hct 24.3 L, MCV 90.3, MCH 29.7, MCHC 32.9, RDW Std Deviation 48.0 H, RDW Coeff of Crescencio 14.6, Plt Count 249, MPV 10.7, Immature Gran % (Auto) 1.400 H, Neut % (Auto) 77.7 H, Lymph % (Auto) 13.8 L, [place] % (Auto) 5.0, Eos % (Auto) 1.6, Baso % (Auto) 0.5, Absolute Neuts (auto) 10.4 H, Absolute Lymphs (auto) 1.84, Nucleated RBC % 0, Sodium 137, Potassium 3.3, Chloride 103, Carbon Dioxide 22.6, Anion Gap 11, BUN 10, Creatinine 0.62 L, Estim Creat Clear Calc 85.53, Est GFR (MDRD) Non-Af 99, BUN/Creatinine Ratio 15.8, Glucose 75, Calcium 8.2 Physical Exam Narrative She is alert and oriented x 3. No acute distress. Abdomen is soft, minimally tender and nondistended Assessment & Plan Assessment/Plan (1) Diverticulitis: PLAN: Plan The patient is a 65-year-old female with sigmoid diverticulitis with 2 associated abscesses each measuring about 3 cm. These are not amenable to percutaneous drainage based on location. Clinically she seems to be improving on IV antibiotics alone. Would recommend continued IV antibiotics until discharge and then transition to oral antibiotics Will likely recommend discharge on oral antibiotics and low fiber diet for the next 3 to 4 weeks, followed by a high-fiber diet. Last colonoscopy was about a year and a half ago. Would recommend outpatient follow-up to document resolution of abscesses I am okay with discharge potentially as soon as later today. Charges/Coding Visit Charges Inpatient E&M: 69423 Subs Hosp L3
--- NOTE | 2025-07-10 14:00 | DS.PCM_ITS ---
Providers Date of Admission: 07/08/25 Primary Care Physician: Annette Romano, FABIAN Consultations 07/08/25 13:21 Consult: General Surgery Routine Consulting Provider: Phan Smith Reason for Consult: diverticulitis. abscesses EMERGENT Consult: No MD Notified: Yes Date Notified: 07/08/25 Time Notified: 12:27 Method of Notification: Verbal Reason For Visit: DIVERTICULITIS Diagnosis Discharge Diagnosis (1) Diverticulitis: Status: Acute Code(s): K57.92 - Diverticulitis of intestine, part unspecified, without perforation or abscess without bleeding Plan: Improving. With abscesses No plans for any surgery at this time. The abscesses are not amenable to IR drainage given their location Continue with pip-tazo Advance diet to transition. Will reevaluate to see if patient would require more time in the hospital. Plan Leukocytosis: improved. Down from 20 to 15. Hypertension controlled. Continue with antihypertensives Hyperlipidemia: Continue with statin VTE prophylaxis with Lovenox CODE STATUS: Addressed with the patient patient wished to be full code. DW patient's at bedside. Medications at Discharge Home Medications atorvastatin 40 mg tablet (Lipitor) 40 mg PO DAILY high cholesterol 07/08/25 telmisartan 40 mg tablet (Micardis) 40 mg PO DAILY HTN 07/08/25 ciprofloxacin HCl 500 mg tablet 500 mg PO Q12H #16 tabs 07/10/25 metronidazole 500 mg tablet 500 mg PO Q8H #24 tabs 07/10/25 oxycodone 5 mg tablet 5 mg PO Q6H PRN pain (scale score 7-10) 3 days #12 tabs 07/10/25 Hospital Course Operations None Procedures None Summary of Care Provided Hospital Course: Patient presents with abdominal pain. Been feeling sick for 10 days prior to arrival and was found to have diverticulitis with 2 abscesses. General surgery was involved and the location of these abscesses did not make them amenable to percutaneous drainage. Patient started on broad-spectrum antibiotics with pip- tazo and has improved during the course of this hospitalization. Patient has been tolerating diet and her pain is much improved. Patient will follow-up with general surgery as outpatient and they will arrange for further imaging of her abdomen to see about resolution of these abscesses. Patient be discharged in stable condition. Weight / BMI Weight Weight: 65.7 kg Body Mass Index (BMI) 24.7 ABG / Lab / Microbiology Data 07/10/25 05:25 07/10/25 05:25 Laboratory: Laboratory Results - last 24 hr 07/10/25 05:25: WBC 13.3 H, RBC 2.69 L, Hgb 8.0 L, Hct 24.3 L, MCV 90.3, MCH 29.7, MCHC 32.9, RDW Std Deviation 48.0 H, RDW Coeff of Crescencio 14.6, Plt Count 249, MPV 10.7, Immature Gran % (Auto) 1.400 H, Neut % (Auto) 77.7 H, Lymph % (Auto) 13.8 L, [place] % (Auto) 5.0, Eos % (Auto) 1.6, Baso % (Auto) 0.5, Absolute Neuts (auto) 10.4 H, Absolute Lymphs (auto) 1.84, Nucleated RBC % 0, Sodium 137, Potassium 3.3, Chloride 103, Carbon Dioxide 22.6, Anion Gap 11, BUN 10, C reatinine 0.62 L, Estim Creat Clear Calc 85.53, Est GFR (MDRD) Non-Af 99, BUN/Creatinine Ratio 15.8, Glucose 75, Calcium 8.2 D/C Instructions DC O2, CPAP, BIPAP Needs Home O2 Discharge instructions: No Meaningful Use Info Meaningful Use Meaningful Use Diagnoses (Choose all that apply): None applicable Discharge Plan Admission Admit Date/Time: 07/08/25 12:25 Primary Reason for Your Visit: Diverticulitis Attending Provider: Fransisco Hernandez Primary Care Provider: Annette Romano [employer] Consulting Providers: Phan Smith Discharge Orders/Prescriptions Prescriptions: New oxycodone 5 mg Tablet 5 mg PO Q6H PRN (Reason: pain (scale score 7-10)) 3 Days Qty: 12 0RF ciprofloxacin HCl 500 mg tablet 500 mg PO Q12H Qty: 16 0RF metronidazole 500 mg tablet 500 mg PO Q8H Qty: 24 0RF Continued atorvastatin [Lipitor] 40 mg tablet 40 mg PO DAILY telmisartan [Micardis] 40 mg tablet 40 mg PO DAILY Referrals / Follow Up: Rodrigo Stark DO [Non-Staff, Family Practice] Phan Smith MD [Med Staff - Active Staff, General Surgery] - Within 2 Weeks Annette Romano [employer], [employer] [Primary Care Provider, Medical] Disposition Disposition (needs filled in before D/C Order can be placed): Home, Self Care Charges/Coding Visit Charges Inpatient E&M: 27745 Disch Hosp
[2025-07-10 14:20] VITALS: BP 123/61; PULSE 77; RESP 16; TEMP 36.6; O2SAT 95
== END 2025-07-10 17:14 | disposition home or self-care (01) | DRG 392 ==
LOC: ED 11:05 → MS3 12:50
PROVIDERS: Emergency Provider Student in an Organized Health Care Education/Training Program; PCP Nurse Practitioner Family
DX: K57.20 Diverticulitis of large intestine with perforation and abscess without bleeding (principal); E78.5 Hyperlipidemia, unspecified; I10 Essential (primary) hypertension; Z79.899 Other long term (current) drug therapy
CPT/HCPCS: 36415; 74177; 80048; 80076; 81001; 83690; 85025; 99283; Q9967; A4216; J2405

== ENCOUNTER → 2025-07-15 | Outpatient (CLI) | payer OTHER, SELFPAY ==
[2025-07-15 11:50] LABS: Hematocrit 31.4 % (37-47); Hemoglobin 10.1 g/dL (12.0-15.0); Immature Granulocytes Count 0.080 X10^3/uL (0.0-0.0); Mean Corp Hgb Conc 32.2 g/dL (32-36); Mean Corpuscular Volume 91.3 fL (81-99); Mean Platelet Vol. 10.1 fl (6.2-12.0); NRBC Flagged by Analyzer 0 % (0-5); Platelet Count 401 K/mm3 (150-450); RBC Distribution Width CV 14.5 % (11.6-14.6); RBC Distribution Width SD 48.0 fl (35.1-43.9); Red Blood Count 3.44 M/mm3 (4.2-5.4); White Blood Count 10.9 K/mm3 (4.4-11.0)
--- NOTE | 2025-07-15 13:45 | CT_ITS ---
PROCEDURE: ABDOMEN/PELVIS WITH CONTRAST 07/15/2025 REASON FOR EXAM: DIVERTICULAR ABSCESSES TECHNIQUE: Procedure Code: CTABDPELW Modality: CT Procedure: ABDOMEN/PELVIS WITH CONTRAST Coronal and Sagittal reconstruction series were provided. CONTRAST: Isovue 370 VOLUME: 100 mL One or more dose reduction techniques were used (e.g., Automated exposure control, adjustment of the mA and/or kV according to patient size, use of iterative reconstruction technique. RADIATION DOSE SUMMARY: CTDlvol: 11.6 mGy DLP: 654.56 mGycm COMPARISON: Prior study dated July 08, 2025. FINDINGS: Lung bases: Calcified subcarinal lymph node. Minimal basilar atelectasis. Small pericardial effusion. Mild cardiomegaly. Liver: Stable mild hepatomegaly. Gallbladder: Multiple gallstones. Spleen: Calcified splenic granulomas. Pancreas: Normal size without evidence of mass surrounding inflammation or ductal dilation. Adrenals: Unremarkable Kidneys: Unremarkable Bladder: Unremarkable Bowel: Sigmoid colon diverticula with wall thickening and adjacent inflammatory changes. No evidence of perforation or abscess. Once again, there are 2 adjacent fluid collections with air within them along the mesenteric side of the sigmoid mesentery. These are in keeping with a abscess. These are essentially unchanged. Focal contained air pocket seen along the inferior right pelvis suggestive of contained perforation. The inflammatory response is improved as compared to prior study. Appendix: The appendix is not identified. There is no inflammatory process identified in the right lower quadrant to suggest appendicitis. Lymph nodes: Unremarkable. Vasculature: Mild diffuse atherosclerotic calcifications are noted. Bones: Unremarkable CT/Abdomen/Pelvis WITH Contrast IMPRESSION: Persistent acute sigmoid diverticulitis although the inflammatory response has improved. Persistent loculated fluid collections in the mesenteric side of the sigmoid me sentery. Inflammatory response has improved. Multiple gallstones. Hepatomegaly. Reading Location: [id number]
== END | disposition home or self-care (01) ==
LOC: CT 11:24
PROVIDERS: PCP Nurse Practitioner Family; Referring Provider Surgery; Visit Provider Surgery
DX: K57.20 Diverticulitis of large intestine with perforation and abscess without bleeding (principal)
CPT/HCPCS: 36415; 74177; 85025; Q9967

== ENCOUNTER 2025-07-24 19:21 | Inpatient (IN) | payer OTHER, SELFPAY ==
[2025-07-24 19:21] VITALS: BP 103/58; PULSE 104; RESP 16; TEMP 36.6; O2SAT 96; BMI 23.6
--- NOTE | 2025-07-24 20:02 | CT_ITS ---
PROCEDURE: ABDOMEN/PELVIS W IV CONT ONLY 07/25/2025 REASON FOR EXAM: NAUSEA, VOMITING, DIARRHEA TECHNIQUE: Procedure Code: CTABDPELIV Modality: CT Procedure: ABDOMEN/PELVIS W IV CONT ONLY Coronal and Sagittal reconstruction series were provided. CONTRAST: Isovue 370 VOLUME: 100 mL One or more dose reduction techniques were used (e.g., Automated exposure control, adjustment of the mA and/or kV according to patient size, use of iterative reconstruction technique. RADIATION DOSE SUMMARY: CTDlvol: 11.6 mGy DLP: 654.56 mGycm COMPARISON: 15-Jul-2025 FINDINGS: Stable colonic diverticulosis with sigmoid diverticulitis associated with related focal mural ill definition and related mary-colic partly encapsulated air loculi and fluid densities currently shows more tendency for loculation and forming a large pocket along its superior aspect measures 7.5 x 6.5 x 4 cm in diameter with surrounding pericolic and mesenteric fat stranding. resolution of the rest of the non encapsulated air loculi and fluid densities. Diffuse rectal and colonic mural thickening suggesting colitis, predominantly involving the left side of the colon with fluid and gaseous distension of the right side of the colon. Unremarkable appendix. The visualized small bowel loops show no obvious mural thickening. The stomach is unremarkable. Enlarged liver showing homogenous parenchymal attenuation. Prominent biliary radicles. The gall bladder shows dense calculi and minimal wall thickening. Normal appearance of the pancreas. No obvious pancreatic masses. The adrenal glands and IVC are unremarkable. Splenic calcified granulomas. Both kidneys are of average size and shape with rather preserved parenchymal thickness. No renal calculi. No hydronephrosis. Distension of the urinary bladder showing no calculi, masses or diverticular out pouches. No obvious masses related to the pelvic viscera. Pelvic phleboli are noted. Vascular atheromatous calcifications Prominent pelviabdominal lymph nodes. Scanned osseous structures show spondylosis. no osseous destruction. Scanned lung bases show mild to moderate pericardial effusion. Calcified subcarinal lymph nodes, bilateral basal atelectatic plates. CT/Abdomen/Pelvis W IV Cont ONLY IMPRESSION: Stable colonic diverticulosis with sigmoid diverticulitis associated with relat ed focal mural ill definition and mary-colic partly encapsulated air loculi and fluid densities currently shows more tendenc y for loculation forming a large pocket as detailed. Also size progression of the pericolic collection yet the tendency fo r loculation and resolution of the rest of the non encapsulated air loculi and fluid densities keeping with localization and ongoi ng improvement. Diffuse rectal and colonic mural thickening suggesting colitis, predominantly i nvolving the left side of the colon with fluid and gaseous distension of the right side of the colon. Stable rest of the study. Reading [facility]
[2025-07-24 20:03] LABS: Hematocrit 28.7 % (37-47); Hemoglobin 9.8 g/dL (12.0-15.0); Immature Granulocytes Count 0.080 X10^3/uL (0.0-0.0); Mean Corp Hgb Conc 34.1 g/dL (32-36); Mean Corpuscular Volume 87.0 fL (81-99); Mean Platelet Vol. 10.2 fl (6.2-12.0); NRBC Flagged by Analyzer 0 % (0-5); Platelet Count 250 K/mm3 (150-450); RBC Distribution Width CV 14.0 % (11.6-14.6); RBC Distribution Width SD 44.5 fl (35.1-43.9); Red Blood Count 3.30 M/mm3 (4.2-5.4); White Blood Count 18.4 K/mm3 (4.4-11.0)
[2025-07-24] MEDS: 0.9% Normal Saline (1000mL) 1,000 ML 999 ML IV ×2 (20:08→23:48)
--- OUTSIDE RECORDS SUMMARY | 2025-07-24 20:11 | XMS RPT_ITS | CCD ---
Author Organization [facility] Care Team Providers Care Direct Support Professional Home Health Name Role Phone LALA, MICHELL T Admitting Unavailable LALA, MICHELL T Attending Unavailable LALA, MICHELL T Primary Care Unavailable LALA, MICHELL T Attending Unavailable LALA, MICHELL T Primary Care Unavailable LALA, MICHELL T Admitting Unavailable Jopperi, Fransisco Admitting Unavailable Joppdinah, Fransisco Attending Unavailable Phan Smith Consulting Unavailable Juan Antonio LINKING MACHINE OPERATOR, [facility] Unavailabl e Jopperi, Fransisco Admitting Unavailable Wantere, Phan Calabrese Attending Unavailable Phan Smith Consulting Unavailable Juan Antonio LINKING MACHINE OPERATOR, [facility] Unavailabl e Jopperi, Fransisco Consulting Unavailable Jopperi, Fransisco Attending Unavailable Juan Antonio LINKING MACHINE OPERATOR, Annette Shirley Referring Unavailabl e Juan Antonio LINKING MACHINE OPERATOR, [facility] Primary Care Unavailabl e WanekPhan Attending Unavailable Juan Antonio LINKING MACHINE OPERATOR, [facility] Unavailabl e WanekPhan Attending Unavailable Phan Smith Referring Unavailable Problems Problem Classification Problem Date Documented Date Episodic/Chronic Diverticulosis and diverticulitis (3 sources) Diverticulitis of intestine, part unspecified, without perforation or abscess without bleeding; Translations: [Diverticulitis of large intestine with perforation and abscess without bleeding] Onset: 07-15-2025 Chronic Results Test Name Value Interpretation Reference Range Facility Surgery Visit Reporton 07-19 Surgery Visit Report [facility] [address] [place] [address] OFFICE VISIT Date of Service: 07/19/25 MR#: [id number] Acct: [id number] Name: TOOTIE GOLDMAN Rep #: [id number] : 1960 Provider: Dr. Phan carranza MD Age/Sex: 65/F Location: [facility] Status: Signed Intake Vital Signs 07/08/25 14:14 07/19/25 15:18 Height 5 ft 4.17 in 5 ft 4 in Weight: 136 lb 2 oz BMI 23.3 BP 111/72 Blood Pressure Location Rt brachial Position Sitting Respiration 18 Pulse 74 Pulse Source Monitor Pulse Oximetry (%) 98 Oxygen Delivery Method room air Intake Visit Reasons: F/U CT SCAN/DIVERTICULITIS Chief Complaint: F/U CT scan/Diverticulitis Career Representative Required: No Accompanied by: Is patient in pain?: No Allergies No Known Allergies Allergy (Verified 07/19/25 15:19) Medications ???Medication ???Instructions ???Recorded ???Confirmed ???Type atorvastatin 40 mg tablet (Lipitor) 40 mg PO DAILY high cholesterol 07/08/25 07/19/25 History telmisartan 40 mg tablet (Micardis) 40 mg PO DAILY HTN 07/08/2501/07 History oxycodone 5 mg tablet 5 mg PO Q6H PRN pain (scale score 07/10/25 07/19/25 Rx 7-10) 3 days #12 tabs Have you fallen in the past year?: No PFSH Medical History (Updated 07/19/25 @ 15:15 by Danni Stanley Collado) Diverticulitis Colonic diverticular abscess High cholesterol Hypertension Surgical History (Updated 07/19/25 @ 15:16 by Danni Collado) No history of previous surgery Family History (Updated 07/19/25 @ 15:17 by Danni Collado) Mother Hypertension High cholesterol CVA (cerebral vascular accident) Social History (Updated 07/19/25 @ 15:17 by Danni Stanley Collado) Smoking Status: Never smoker alcohol intake: never substance use type: does not use HPI HPI HPI: The patient is a 65-year-old female who presents today for reevaluation of her diverticulitis. She was recently hospitalized at [facility] after initially presenting to the hospital with 10 days of abdominal pain symptoms. Initially she thought that she had flulike illness. She finally came to the emergency room and was found to have diverticulitis with 2 abscesses. These did not seem to be amenable to percutaneous drainage. She was admitted and quickly improved with IV antibiotics. Her white count normalized and her symptoms greatly improved. She contacted our office several days after discharge stating that she was concerned that she still has low energy level. It was agreed to repeat her blood work and CAT scan. Her white blood cell count was normal at 11.9. Her CT scan showed improvement to the level of inflammation around the colon. Her fluid collections remained virtually unchanged which I would really not anticipate to dramatically change after only a week.. She states today that she is continuing to improve. She denies any significant pain. Her notes that she is lost about 14 pounds in the past 2 weeks as a result of this illness. ROS General General: Yes weight change; No appetite, fatigue, colon cancer, breast cancer or weakness Additional Details: 14 pound weight loss in past 2-3 weeks HEENT HEENT: No difficulty swallowing, eye injury, eye surgery, swollen glands or hoarseness Endo Endocrine: No thyroid disease, diabetes mellitus, thyroid cancer, Hair loss, heat intolerance or cold intolerance Skin Skin: No rash or changing moles Breast Breast: No left breast lump, right breast lump, nipple discharge, breast pain, abnormal mammogram, abnormal US or breast enlargement Musc Musculoskeletal: No back problems, arthritis, rheumatoid arthritis, gout or joint pain Cardio Cardiovascular: No murmur, pacemaker, heart disease, atrial fibrillation, high blood pressure, heart attack, heart stent, palpitations, shortness of breath with exertion or chest pain Psych Psychiatric: No depression, anxiety or hearing voices Resp Respiratory: No shortness of breath, No sleep apnea, No cough, No COPD, No asthma, No emphysema and No wheezing Gastro Gastrointestinal: No abdominal pain, No nausea or vomiting, No diarrhea, No constipation, No blood in stool, No acid reflux, No hemorrhoids, No ulcers, No gallbladder problem and No black,tarry stools Des Hematologic: No blood thinners, No blood disorders, No bleeding, No anemia and No blood clots Neuro Neurologic: No system reviewed and no additional complaints, except as documented, No as per HPI, No abnormal gait, No abnormal hearing, No abnormal movements, No abnormal speech, No behavioral changes, No burning sensations, No confusion, No convulsions, No disequilibrium, No dizziness, No localized weakness, No frequent falls, No headache(s), No lack of coordination, No loss of vision, No memory loss, No numbness, No other v (more content not included)... Normal [facility] Abdomen/Pelvis WITH Contrast on 07-15-2025 Abdomen/Pelvis WITH Contrast [facility] Services [address] [place] [address] Abdomen/Pelvis WITH Contrast MR#: [id number] Acct: [id number] Name: TOOTIE GOLDMAN Rep #: [id number] : 1960 F 65 From: Arian robertson MD PCP: Annette Romano, LINKING MACHINE OPERATOR-C Status: REG CLI Study: Abdomen/Pelvis WITH Contrast Date of Exam: Exam# [id number] Ordering Dr: Phan Smith MD PROCEDURE: ABDOMEN/PELVIS WITH CONTRAST 07/15/2025 REASON FOR EXAM: DIVERTICULAR ABSCESSES TECHNIQUE: Procedure Code: CTABDPELW Modality: CT Procedure: ABDOMEN/PELVIS WITH CONTRAST Coronal and Sagittal reconstruction series were provided. CONTRAST: Isovue 370 VOLUME: 100 mL One or more dose reduction techniques were used (e.g., Automated exposure control, adjustment of the mA and/or kV according to patient size, use of iterative reconstruction technique. RADIATION DOSE SUMMARY: CTDlvol: 11.6 mGy DLP: 654.56 mGycm COMPARISON: Prior study dated July 08, 2025. FINDINGS: Lung bases: Calcified subcarinal lymph node. Minimal basilar atelectasis. Small pericardial effusion. Mild cardiomegaly. Liver: Stable mild hepatomegaly. Gallbladder: Multiple gallstones. Spleen: Calcified splenic granulomas. Pancreas: Normal size without evidence of mass surrounding inflammation or ductal dilation. Adrenals: Unremarkable Kidneys: Unremarkable Bladder: Unremarkable Bowel: Sigmoid colon diverticula with wall thickening and adjacent inflammatory changes. No evidence of perforation or abscess. Once again, there are 2 adjacent fluid collections with air within them along the mesenteric side of the sigmoid mesentery. These are in keeping with a abscess. These are essentially unchanged. Focal contained air pocket seen along the inferior right pelvis suggestive of contained perforation. The inflammatory response is improved as compared to prior study. Appendix: The appendix is not identified. There is no inflammatory process identified in the right lower quadrant to suggest appendicitis. Lymph nodes: Unremarkable. Vasculature: Mild diffuse atherosclerotic calcifications are noted. Bones: Unremarkable CT/Abdomen/Pelvis WITH Contrast IMPRESSION: Persistent acute sigmoid diverticulitis although the inflammatory response has improved. Persistent loculated fluid collections in the mesenteric side of the sigmoid mesentery. Inflammatory response has improved. Multiple gallstones. Hepatomegaly. Reading Location: [id number] CC: FABIAN Romano; Dr. Phan Smith MD Conveyor Weigher Operator: Signed Normal [facility] CBC W/Diff, Automatedon 10-3 Absolute Lymph 2.30 X10 3/uL Normal 0.83-4.51 [facility] Comment on above: Performed By: #### L 100.0100 ####[facility] [address] [place], [address] Absolute Neut 7.5 X10 3/uL Normal 2.0-7.7 [facility] Comment on above: Performed By: #### L 100.0100 ####[facility] [address] [place], [address] Basophils/100 WBC (Bld) 0.8 % Normal 0-1 [facility] Comment on above: Performed By: #### L 100.0100 ####[facility] [address] [place], [address] Eosinophils/100 WBC (Bld) 1.4 % Normal 0-5 [facility] Comment on above: Performed By: #### L 100.0100 ####[facility] [address] [place], [address] Erythrocyte distribution width (RBC) [Ratio] 14.5 % Normal 11.6-14.6 [facility] Comment on above: Performed By: #### L 100.0100 ####[facility] [address] [place], [address] Hematocrit (Bld) [Volume fraction] 31.4 % Low 37-47 [facility] Comment on above: Performed By: #### L 100.0100 ####[facility] [address] [place], [address] Hemoglobin (Bld) [Mass/Vol] 10.1 g/dL Low 12.0-15.0 [facility] Comment on above: Performed By: #### L 100.0100 ####[facility] [address] [place], [address] IG% 0.700 Normal 0.0-0.9 [facility] Comment on above: Result Comment: IG% - Immature Granulocytes (promyelocytes, myelocytes and metamyelocytes) > 1% indicates that a LEFT SHIFT is Present. Performed By: #### L 100.0100 ####[facility] [address] [place], [address] Lymphocytes/100 WBC (Bld) 21.0 % Normal 19-41 [facility] Comment on above: Performed By: #### L 100.0100 ####[facility] [address] [place], [address] MCH (RBC) [Entitic mass] 29.4 pg Normal 27.0-32.0 [facility] Comment on above: Performed By: #### L 100.0100 ####[facility] [address] [place], [address] MCHC (RBC) [Mass/Vol] 32.2 g/dL Normal 32-36 [facility] Comment on above: Performed By: #### L 100.0100 ####[facility] [address] [place], [address] MCV (RBC) [Entitic vol] 91.3 fL Normal 81-99 [facility] Comment on above: Performed By: #### L 100.0100 ####[facility] [address] [place], [address] Monocytes/100 WBC (Bld) 7.1 % Normal 0-10 [facility] Comment on above: Performed By: #### L 100.0100 ####[facility] [address] [place], [address] Neutrophils/100 WBC (Bld) 69.0 % Normal 47-70 [facility] Comment on above: Performed By: #### L 100.0100 ####[facility] [address] [place], [address] Nucleated RBC (Bld) [#/Vol] 0 10*3/uL Normal 0-5 [facility] Comment on above: Performed By: #### L 100.0100 ####[facility] [address] [place], [address] Platelet mean volume (Bld) [Entitic vol] 10.1 fL Normal 6.2-12.0 [facility] Comment on above: Performed By: #### L 100.0100 ####[facility] [address] [place], [address] Platelets (Bld) [#/Vol] 401 10*3/uL Normal 150-450 [facility] Comment on above: Performed By: #### L 100.0100 ####[facility] [address] [place], [address] RBC (Bld) [#/Vol] 3.44 10*6/uL Low 4.2-5.4 [facility] Comment on above: Performed By: #### L 100.0100 ####[facility] [address] [place], [address] RDW SD 48.0 fl High 35.1-43.9 [facility] Comment on above: Performed By: #### L 100.0100 ####[facility] [address] [place], [address] WBC (Bld) [#/Vol] 10.9 10*3/uL Normal 4.4-11.0 [facility] Comment on above: Performed By: #### L 100.0100 ####[facility] [address] [place], [address] Basic Metabolic Profile (BMP )on 07-10-2025 BUN/CRE 15.8 RATIO Normal 10-20 [facility] Comment on above: Performed By: #### L 500.2500, L100.0100 ####[facility] [address] [place], [address] Calcium [Mass/Vol] 8.2 mg/dL Normal 7.6-11.0 [facility] Comment on above: Performed By: #### L 500.2500, L100.0100 ####[facility] [address] [place], [address] Chloride [Moles/Vol] 103 mmol/L Normal 98-108 [facility] Comment on above: Performed By: #### L 500.2500, L100.0100 ####[facility] [address] [place], [address] CO2 [Moles/Vol] 22.6 mmol/L Normal 21.0-32.0 [facility] Comment on above: Performed By: #### L 500.2500, L100.0100 ####[facility] [address] [place], [address] Creatinine [Mass/Vol] 0.62 mg/dL Low 0.70-1.20 [facility] Comment on above: Performed By: #### L 500.2500, L100.0100 ####[facility] [address] [place], [address] ECRCL 85.53 ml/min Normal 50-250 [facility] Comment on above: Performed By: #### L 500.2500, L100.0100 ####[facility] [address] [place], [address] GAP 11 Normal 5-15 [facility] Comment on above: Performed By: #### L 500.2500, L100.0100 ####[facility] [address] [place], [address] GFR/1.73 sq M.predicted among non-blacks MDRD (S/P/Bld) [Vol rate/Area] 99 mL/min/{1.73_m2} Normal >60 [facility] Comment on above: Result Comment: mL/m in/1.73m2 CKD-EPI Creatinine Equation (2020) Performed By: #### L 500.2500, L100.0100 ####[facility] [address] [place], [address] Glucose [Mass/Vol] 75 mg/dL Normal 70-99 [facility] Comment on above: Performed By: #### L 500.2500, L100.0100 ####[facility] [address] [place], [address] Potassium [Moles/Vol] 3.3 mmol/L Normal 3.3-5.1 [facility] Comment on above: Performed By: #### L 500.2500, L100.0100 ####[facility] [address] [place], [address] Sodium [Moles/Vol] 137 mmol/L Normal 133-145 [facility] Comment on above: Performed By: #### L 500.2500, L100.0100 ####[facility] [address] [place], [address] Urea nitrogen [Mass/Vol] 10 mg/dL Normal 4-19 [facility] Comment on above: Performed By: #### L 500.2500, L100.0100 ####[facility] [address] [place], [address] CBC W/Diff, Automatedon 10-2 Absolute Lymph 1.84 X10 3/uL Normal 0.83-4.51 [facility] Comment on above: Performed By: #### L 500.2500, L100.0100 ####[facility] [address] [place], [address] Absolute Neut 10.4 X10 3/uL High 2.0-7.7 [facility] Comment on above: Performed By: #### L 500.2500, L100.0100 ####[facility] [address] [place], [address] Basophils/100 WBC (Bld) 0.5 % Normal 0-1 [facility] Comment on above: Performed By: #### L 500.2500, L100.0100 ####[facility] [address] [place], [address] Eosinophils/100 WBC (Bld) 1.6 % Normal 0-5 [facility] Comment on above: Performed By: #### L 500.2500, L100.0100 ####[facility] [address] [place], [address] Erythrocyte distribution width (RBC) [Ratio] 14.6 % Normal 11.6-14.6 [facility] Comment on above: Performed By: #### L 500.2500, L100.0100 ####[facility] [address] [place], [address] Hematocrit (Bld) [Volume fraction] 24.3 % Low 37-47 [facility] Comment on above: Performed By: #### L 500.2500, L100.0100 ####[facility] [address] [place], [address] Hemoglobin (Bld) [Mass/Vol] 8.0 g/dL Low 12.0-15.0 [facility] Comment on above: Performed By: #### L 500.2500, L100.0100 ####[facility] [address] [place], [address] IG% 1.400 High 0.0-0.9 [facility] Comment on above: Result Comment: IG% - Immature Granulocytes (promyelocytes, myelocytes and metamyelocytes) > 1% indicates that a LEFT SHIFT is Present. Performed By: #### L 500.2500, L100.0100 ####[facility] [address] [place], [address] Lymphocytes/100 WBC (Bld) 13.8 % Low 19-41 [facility] Comment on above: Performed By: #### L 500.2500, L100.0100 ####[facility] [address] [place], [address] MCH (RBC) [Entitic mass] 29.7 pg Normal 27.0-32.0 [facility] Comment on above: Performed By: #### L 500.2500, L100.0100 ####[facility] [address] [place], [address] MCHC (RBC) [Mass/Vol] 32.9 g/dL Normal 32-36 [facility] Comment on above: Performed By: #### L 500.2500, L100.0100 ####[facility] [address] [place], [address] MCV (RBC) [Entitic vol] 90.3 fL Normal 81-99 [facility] Comment on above: Performed By: #### L 500.2500, L100.0100 ####[facility] [address] [place], [address] Monocytes/100 WBC (Bld) 5.0 % Normal 0-10 [facility] Comment on above: Performed By: #### L 500.2500, L100.0100 ####[facility] [address] [place], [address] Neutrophils/100 WBC (Bld) 77.7 % High 47-70 [facility] Comment on above: Performed By: #### L 500.2500, L100.0100 ####[facility] [address] [place], [address] Nucleated RBC (Bld) [#/Vol] 0 10*3/uL Normal 0-5 [facility] Comment on above: Performed By: #### L 500.2500, L100.0100 ####[facility] [address] [place], [address] Platelet mean volume (Bld) [Entitic vol] 10.7 fL Normal 6.2-12.0 [facility] Comment on above: Performed By: #### L 500.2500, L100.0100 ####[facility] [address] [place], [address] Platelets (Bld) [#/Vol] 249 10*3/uL Normal 150-450 [facility] Comment on above: Performed By: #### L 500.2500, L100.0100 ####[facility] [address] [place], [address] RBC (Bld) [#/Vol] 2.69 10*6/uL Low 4.2-5.4 [facility] Comment on above: Performed By: #### L 500.2500, L100.0100 ####[facility] [address] [place], [address] RDW SD 48.0 fl High 35.1-43.9 [facility] Comment on above: Performed By: #### L 500.2500, L100.0100 ####[facility] [address] [place], [address] WBC (Bld) [#/Vol] 13.3 10*3/uL High 4.4-11.0 [facility] Comment on above: Performed By: #### L 500.2500, L100.0100 ####[facility] [address] [place], [address] Basic Metabolic Profile (BMP )on 07-09-2025 BUN/CRE 16.1 RATIO Normal 10-20 [facility] Comment on above: Performed By: #### L 500.2500, L100.0100 ####[facility] [address] [place], [address] Calcium [Mass/Vol] 8.4 mg/dL Normal 7.6-11.0 [facility] Comment on above: Performed By: #### L 500.2500, L100.0100 ####[facility] [address] [place], [address] Chloride [Moles/Vol] 105 mmol/L Normal 98-108 [facility] Comment on above: Performed By: #### L 500.2500, L100.0100 ####[facility] [address] [place], [address] CO2 [Moles/Vol] 23.3 mmol/L Normal 21.0-32.0 [facility] Comment on above: Performed By: #### L 500.2500, L100.0100 ####[facility] [address] [place], [address] Creatinine [Mass/Vol] 0.70 mg/dL Normal 0.70-1.20 [facility] Comment on above: Performed By: #### L 500.2500, L100.0100 ####[facility] [address] [place], [address] ECRCL 75.75 ml/min Normal 50-250 [facility] Comment on above: Performed By: #### L 500.2500, L100.0100 ####[facility] [address] [place], [address] GAP 9 Normal 5-15 [facility] Comment on above: Performed By: #### L 500.2500, L100.0100 ####[facility] [address] [place], [address] GFR/1.73 sq M.predicted among non-blacks MDRD (S/P/Bld) [Vol rate/Area] 97 mL/min/{1.73_m2} Normal >60 [facility] Comment on above: Result Comment: mL/m in/1.73m2 CKD-EPI Creatinine Equation (2020) Performed By: #### L 500.2500, L100.0100 ####[facility] [address] [place], [address] Glucose [Mass/Vol] 81 mg/dL Normal 70-99 [facility] Comment on above: Performed By: #### L 500.2500, L100.0100 ####[facility] [address] [place], [address] Potassium [Moles/Vol] 3.4 mmol/L Normal 3.3-5.1 [facility] Comment on above: Performed By: #### L 500.2500, L100.0100 ####[facility] [address] [place], [address] Sodium [Moles/Vol] 138 mmol/L Normal 133-145 [facility] Comment on above: Performed By: #### L 500.2500, L100.0100 ####[facility] [address] [place], [address] Urea nitrogen [Mass/Vol] 11 mg/dL Normal 4-19 [facility] Comment on above: Performed By: #### L 500.2500, L100.0100 ####[facility] [address] [place], [address] CBC W/Diff, Automatedon 10-2 Absolute Lymph 1.85 X10 3/uL Normal 0.83-4.51 [facility] Comment on above: Performed By: #### L 500.2500, L100.0100 #### [facility] [address] [place], [address] Absolute Neut 12.7 X10 3/uL High 2.0-7.7 [facility] Comment on above: Performed By: #### L 500.2500, L100.0100 #### [facility] [address] [place], [address] Basophils/100 WBC (Bld) 0.5 % Normal 0-1 [facility] Comment on above: Performed By: #### L 500.2500, L100.0100 #### [facility] [address] [place], [address] Eosinophils/100 WBC (Bld) 1.3 % Normal 0-5 [facility] Comment on above: Performed By: #### L 500.2500, L100.0100 #### [facility] [address] [place], [address] Erythrocyte distribution width (RBC) [Ratio] 14.9 % High 11.6-14.6 [facility] Comment on above: Performed By: #### L 500.2500, L100.0100 #### [facility] [address] [place], [address] Hematocrit (Bld) [Volume fraction] 25.0 % Low 37-47 [facility] Comment on above: Performed By: #### L 500.2500, L100.0100 #### [facility] [address] [place], [address] Hemoglobin (Bld) [Mass/Vol] 8.2 g/dL Low 12.0-15.0 [facility] Comment on above: Performed By: #### L 500.2500, L100.0100 #### [facility] [address] [place], [address] IG% 1.700 High 0.0-0.9 [facility] Comment on above: Result Comment: IG% - Immature Granulocytes (promyelocytes, myelocytes and metamyelocytes) > 1% indicates that a LEFT SHIFT is Present. Performed By: #### L 500.2500, L100.0100 #### [facility] [address], [address] Lymphocytes/100 WBC (Bld) 11.6 % Low 19-41 [facility] Comment on above: Performed By: #### L 500.2500, L100.0100 #### [facility] [address] [place], [address] MCH (RBC) [Entitic mass] 29.9 pg Normal 27.0-32.0 [facility] Comment on above: Performed By: #### L 500.2500, L100.0100 #### [facility] [address] [place], [address] MCHC (RBC) [Mass/Vol] 32.8 g/dL Normal 32-36 [facility] Comment on above: Performed By: #### L 500.2500, L100.0100 #### [facility] [address], [address] MCV (RBC) [Entitic vol] 91.2 fL Normal 81-99 [facility] Comment on above: Performed By: #### L 500.2500, L100.0100 #### [facility] [address] [place], [address] Monocytes/100 WBC (Bld) 5.2 % Normal 0-10 [facility] Comment on above: Performed By: #### L 500.2500, L100.0100 #### [facility] [address] [place], [address] Neutrophils/100 WBC (Bld) 79.7 % High 47-70 [facility] Comment on above: Performed By: #### L 500.2500, L100.0100 #### [facility] [address] [place], [address] Nucleated RBC (Bld) [#/Vol] 0 10*3/uL Normal 0-5 [facility] Comment on above: Performed By: #### L 500.2500, L100.0100 #### [facility] [address] [place], [address] Platelet mean volume (Bld) [Entitic vol] 10.5 fL Normal 6.2-12.0 [facility] Comment on above: Performed By: #### L 500.2500, L100.0100 #### [facility] [address] [place], [address] Platelets (Bld) [#/Vol] 230 10*3/uL Normal 150-450 [facility] Comment on above: Performed By: #### L 500.2500, L100.0100 #### [facility] [address] [place], [address] RBC (Bld) [#/Vol] 2.74 10*6/uL Low 4.2-5.4 [facility] Comment on above: Performed By: #### L 500.2500, L100.0100 #### [facility] [address] [place], [address] RDW SD 50.3 fl High 35.1-43.9 [facility] Comment on above: Performed By: #### L 500.2500, L100.0100 #### [facility] [address] [place], [address] WBC (Bld) [#/Vol] 15.9 10*3/uL High 4.4-11.0 [facility] Comment on above: Performed By: #### L 500.2500, L100.0100 #### [facility] [address] [place], [address] Abdomen/Pelvis W IV Cont ONL Adam 07-08-2025 Abdomen/Pelvis W IV Cont ONLY [facility] Imaging Services [address] [place], [place] [address] Abdomen/Pelvis W IV Cont ONLY MR#: [id number] Acct: [id number] Name: TOOTIE GOLDMAN Rep #: [id number] : 1960 F 65 From: Landy Tay MD PCP: Annette Romano, LINKING MACHINE OPERATOR-C Status: REG ER Study: Abdomen/Pelvis W IV Cont ONLY Date of Exam: Exam# [id number] Ordering Dr: Natalie George MD PROCEDURE: ABDOMEN/PELVIS W IV CONT ONLY 07/08/2025 REASON FOR EXAM: LOWER ABD PAIN TECHNIQUE: Procedure Code: [id number] Modality: CT Procedure: ABDOMEN/PELVIS W IV CONT ONLY Coronal and Sagittal reconstruction series were provided. CONTRAST: Isovue 370 VOLUME: 100 mL One or more dose reduction techniques were used (e.g., Automated exposure control, adjustment of the mA and/or kV according to patient size, use of iterative reconstruction technique. RADIATION DOSE SUMMARY: CTDlvol: 15.35 mGy DLP: 1137.56 mGycm COMPARISON: None. FINDINGS: Lung bases: Liver: Hepatomegaly with the liver measures 20 cm in length. Gallbladder: Cholelithiasis. No biliary dilation. Spleen: Unremarkable. Pancreas: Unremarkable. Adrenals: Unremarkable. Kidneys: No hydronephrosis. No nephrolithiasis. Bladder: Unremarkable. Reproductive Organs: Unremarkable. Bowel: Extensive sigmoid colon diverticulosis with mural wall thickening consistent with acute diverticulitis. Appendix: Normal. Lymph nodes: No lymphadenopathy. Vasculature: No aneurysm. Atherosclerotic calcifications. Peritoneum / Retroperitoneum: A 2.6 x 2.3 x 2.3 cm collection with fluid and air in the pelvis. Another more anterior 3.4 x 2.5 x 2.6 cm collection contains air and fluid in the pelvis consistent with abscess and surrounded by peritoneal fat stranding. No free air. Bones: No acute bony abnormalities. CT/Abdomen/Pelvis W IV Cont ONLY IMPRESSION: Acute sigmoid diverticulitis with two pelvic abscesses measuring 2.3 x 2.3 x 2.3 cm and 3.4 x 2.5 x 2.6 cm. Cholelithiasis. Reading Location: [facility] CC: FABIAN Romano; Dr. Natalie George MD Conveyor Weigher Operator: Signed Normal [facility] Basic Metabolic Profile (BMP )on 07-08-2025 BUN/CRE 13.3 RATIO Normal 07-04 [facility] Comment on above: Performed By: #### L 100.0100, L501.2450, L500.3400, L500.2500 #### [facility] [address] [place], [address] Calcium [Mass/Vol] 9.5 mg/dL Normal 7.6-11.0 [facility] Comment on above: Performed By: #### L 100.0100, L501.2450, L500.3400, L500.2500 #### [facility] [address] [place], [address] Chloride [Moles/Vol] 100 mmol/L Normal 98-108 [facility] Comment on above: Performed By: #### L 100.0100, L501.2450, L500.3400, L500.2500 #### [facility] [address] [place], [address] CO2 [Moles/Vol] 26.7 mmol/L Normal 21.0-32.0 [facility] Comment on above: Performed By: #### L 100.0100, L501.2450, L500.3400, L500.2500 #### [facility] [address] [place], [address] Creatinine [Mass/Vol] 0.72 mg/dL Normal 0.70-1.20 [facility] Comment on above: Performed By: #### L 100.0100, L501.2450, L500.3400, L500.2500 #### [facility] [address] [place], [address] ECRCL 73.66 ml/min Normal 50-250 [facility] Comment on above: Performed By: #### L 100.0100, L501.2450, L500.3400, L500.2500 #### [facility] [address] [place], [address] GAP 12 Normal 5-15 [facility] Comment on above: Performed By: #### L 100.0100, L501.2450, L500.3400, L500.2500 #### [facility] [address] [place], [address] GFR/1.73 sq M.predicted among non-blacks MDRD (S/P/Bld) [Vol rate/Area] 94 mL/min/{1.73_m2} Normal >60 [facility] Comment on above: Result Comment: mL/m in/1.73m2 CKD-EPI Creatinine Equation (2020) Performed By: #### L 100.0100, L501.2450, L500.3400, L500.2500 #### [facility] [address] [place], [address] Glucose [Mass/Vol] 109 mg/dL High 70-99 [facility] Comment on above: Performed By: #### L 100.0100, L501.2450, L500.3400, L500.2500 #### [facility] [address] [place], [address] Potassium [Moles/Vol] 3.7 mmol/L Normal 3.3-5.1 [facility] Comment on above: Performed By: #### L 100.0100, L501.2450, L500.3400, L500.2500 #### [facility] [address] [place], [address] Sodium [Moles/Vol] 139 mmol/L Normal 133-145 [facility] Comment on above: Performed By: #### L 100.0100, L501.2450, L500.3400, L500.2500 #### [facility] [address] [place], [address] Urea nitrogen [Mass/Vol] 10 mg/dL Normal 4-19 [facility] Comment on above: Performed By: #### L 100.0100, L501.2450, L500.3400, L500.2500 #### [facility] [address] [place], [address] CBC W/Diff, Automatedon 10-2 Absolute Lymph 2.30 X10 3/uL Normal 0.83-4.51 [facility] Comment on above: Performed By: #### L 100.0100, L501.2450, L500.3400, L500.2500 #### [facility] [address] [place], [address] Absolute Neut 16.1 X10 3/uL High 2.0-7.7 [facility] Comment on above: Performed By: #### L 100.0100, L501.2450, L500.3400, L500.2500 #### [facility] [address] [place], [address] Basophils/100 WBC (Bld) 0.4 % Normal 0-1 [facility] Comment on above: Performed By: #### L 100.0100, L501.2450, L500.3400, L500.2500 #### [facility] [address] [place], [address] Eosinophils/100 WBC (Bld) 0.8 % Normal 0-5 [facility] Comment on above: Performed By: #### L 100.0100, L501.2450, L500.3400, L500.2500 #### [facility] [address] [place], [address] Erythrocyte distribution width (RBC) [Ratio] 14.8 % High 11.6-14.6 [facility] Comment on above: Performed By: #### L 100.0100, L501.2450, L500.3400, L500.2500 #### [facility] [address] [place], [address] Hematocrit (Bld) [Volume fraction] 29.8 % Low 37-47 [facility] Comment on above: Performed By: #### L 100.0100, L501.2450, L500.3400, L500.2500 #### [facility] [address] [place], [address] Hemoglobin (Bld) [Mass/Vol] 9.9 g/dL Low 12.0-15.0 [facility] Comment on above: Performed By: #### L 100.0100, L501.2450, L500.3400, L500.2500 #### [facility] [address] [place], [address] IG% 2.800 High 0.0-0.9 [facility] Comment on above: Result Comment: IG% - Immature Granulocytes (promyelocytes, myelocytes and metamyelocytes) > 1% indicates that a LEFT SHIFT is Present. Performed By: #### L 100.0100, L501.2450, L500.3400, L500.2500 #### [facility] [address] [place], [address] Lymphocytes/100 WBC (Bld) 11.4 % Low 19-41 [facility] Comment on above: Performed By: #### L 100.0100, L501.2450, L500.3400, L500.2500 #### [facility] [address] [place], [address] MCH (RBC) [Entitic mass] 29.6 pg Normal 27.0-32.0 [facility] Comment on above: Performed By: #### L 100.0100, L501.2450, L500.3400, L500.2500 #### [facility] [address] [place], [address] MCHC (RBC) [Mass/Vol] 33.2 g/dL Normal 32-36 [facility] Comment on above: Performed By: #### L 100.0100, L501.2450, L500.3400, L500.2500 #### [facility] [address] [place], [address] MCV (RBC) [Entitic vol] 89.0 fL Normal 81-99 [facility] Comment on above: Performed By: #### L 100.0100, L501.2450, L500.3400, L500.2500 #### [facility] [address] [place], [address] Monocytes/100 WBC (Bld) 5.3 % Normal 0-10 [facility] Comment on above: Performed By: #### L 100.0100, L501.2450, L500.3400, L500.2500 #### [facility] [address] [place], [address] Neutrophils/100 WBC (Bld) 79.3 % High 47-70 [facility] Comment on above: Performed By: #### L 100.0100, L501.2450, L500.3400, L500.2500 #### [facility] [address] [place], [address] Nucleated RBC (Bld) [#/Vol] 0 10*3/uL Normal 0-5 [facility] Comment on above: Performed By: #### L 100.0100, L501.2450, L500.3400, L500.2500 #### [facility] [address] [place], [address] Platelet mean volume (Bld) [Entitic vol] 10.3 fL Normal 6.2-12.0 [facility] Comment on above: Performed By: #### L 100.0100, L501.2450, L500.3400, L500.2500 #### [facility] [address] [place], [address] Platelets (Bld) [#/Vol] 287 10*3/uL Normal 150-450 [facility] Comment on above: Performed By: #### L 100.0100, L501.2450, L500.3400, L500.2500 #### [facility] [address] [place], [address] RBC (Bld) [#/Vol] 3.35 10*6/uL Low 4.2-5.4 [facility] Comment on above: Performed By: #### L 100.0100, L501.2450, L500.3400, L500.2500 #### [facility] [address] [place], [address] RDW SD 48.5 fl High 35.1-43.9 [facility] Comment on above: Performed By: #### L 100.0100, L501.2450, L500.3400, L500.2500 #### [facility] [address] [place], [address] WBC (Bld) [#/Vol] 20.2 10*3/uL High 4.4-11.0 [facility] Comment on above: Performed By: #### L 100.0100, L501.2450, L500.3400, L500.2500 #### [facility] [address] [place], [address] Consultation - Surgicalon Consultation - Surgical [facility] Medical Records Department [address] [place] [address] Consultation - Surgical 07/08/25 1459 MR#: [id number] Acct: [id number] Name: TOOTIE GOLDMAN Jaden Rep #: [id number] : 1960 65 From: Phan Smith MD PCP: Annette Romano, LINKING MACHINE OPERATOR-C Status:ADM IN Location: MS3 [id number] Assessment Plan Assessment/Plan (1) Diverticulitis: PLAN: Plan The patient is a 65-year-old female who presented to the emergency department earlier today with 10- day history of abdominal pain. Workup in the ER has revealed sigmoid diverticulitis but is to abscesses each measuring about 3 cm. Because of the location, these do not appear to be amenable to percutaneous drainage. They seem small enough that they will likely resolve with antibiotics. Plan is to have her admitted to medicine service. She will be placed on IV antibiotics. We will continue to follow along and advise accordingly. Her last colonoscopy was about a year and a half ago. She did have polyps at that time. No previous episodes of diverticulitis. HPI Consult Data Date of Consult: 07/08/25 HPI Narrative HPI Narrative: TOOTIE GOLDMAN, is a 65 F who presented to the [facility] emergency department earlier today with about a 10-day history of lower abdominal cramping, pain and diminished appetite. The patient and her stated that about 10 days ago she developed what they described as flulike symptoms. They stated they had multiple family members who recently had similar symptoms and so they felt that this was likely related to flulike illness. Her symptoms abdominal pain began about 3 to 4 days ago. She stated that this pain was somewhat crampy and seemed to come and go. She did develop some subjective fevers and chills. She presented to the emergency department today where she was seen evaluated by the ER staff. Blood work indicated a leukocytosis with a white blood cell count of about 20,000. CT scan was performed and showed findings consistent with sigmoid diverticulitis with 2 abscesses. These abscesses measured approximately 3 cm each. These were fairly centrally located and did not seem to be readily accessible by CT-guided drainage. [facility] Medical History High cholesterol Hypertension Home Medications ???Medication ???Instructions ???Recorded ???Last Taken ???Type atorvastatin 40 mg tablet (Lipitor) 40 mg PO DAILY high cholesterol 07/08/25 07/04/25 22:00 History 40 mg telmisartan 40 mg tablet (Micardis) 40 mg PO DAILY HTN 07/08/25 10:00 History 40 mg Allergy/AdvReac Type Severity Reaction Status Date / Time No Known Allergies Allergy Verified 07/08/25 10:22 Social History Smoking Status: Never smoker Physical Exam Narrative She is alert and oriented x 3 she is in no acute distress. She does not appear to be ill- appearing/toxic. Head is normocephalic and atraumatic. Her pupils equal round and reactive to light Abdomen is soft, nondistended. She does have mild left lower quadrant tenderness with deep palpation. No rebound or guarding. No wincing. This does not appear to be a surgical abdomen Medical Records Data Attestation: I reviewed the patient's medical records Lab / Micro Data Attestation: I reviewed the patient's lab results. 07/08/25 10:40 07/08/25 10:40 Labs: Laboratory Results - last 24 hr 07/08/25 10:40: WBC 20.2 H, RBC 3.35 L, Hgb 9.9 L, Hct 29.8 L, MCV 89.0, MCH 29.6, MCHC 33.2, RDW Std Deviation 48.5 H, RDW Coeff of Crescencio 14.8 H, Plt Count 287, MPV 10.3, Immature Gran % (Auto) 2.800 H, Neut % (Auto) 79.3 H, Lymph % (Auto) 11.4 L, [place] % (Auto) 5.3, Eos % (Auto) 0.8, Baso % (Auto) 0.4, Absolute Neuts (auto) 16.1 H, Absolute Lymphs (auto) 2.30, Nucleated RBC % 0, Sodium 139, Potassium 3.7, Chloride 100, Carbon Dioxide 26.7, Anion Gap 12, BUN 10, Creatinine 0.72, Estim Creat Clear Calc 73.66, Est GFR (MDRD) Non-Af 94, BUN/Creatinine Ratio 13.3, Glucose 109 H, Calcium 9.5, T otal Bilirubin 1.73 H, Direct Bilirubin 1.09 H, AST 44 H, ALT 62 H, Alkaline Phosphatase 197 H, Total Protein 7.8, Albumin 3.6, Globulin 4.1, Lipase 18 07/08/25 10:50: Urine Color Yellow, Urine Clarity Sl. Cloudy, Urine pH 7.0, Ur Specific Sibley 1.005, Urine Protein Negative, Urine Glucose (UA) Normal, Urine Ketones Negative, Urine Occult Blood 10 H, Urine Nitrite Negative, Urine Bilirubin Negative, Urine Urobilinogen Normal, Ur Leukocyte Esterase 100 H, Urine RBC 0-5 SEEN, Urine WBC 0-5 SEEN, Ur Squamous Epith Cells 0-5 SEEN, Urine Bacteria 0 SEEN, Urine Mucus 0 SEEN Imaging Radiology Impression Abdomen/Pelvis CT 07/08/25 10:37 IMPRESSION: Acute sigmoid diverticulitis with two pelvic abscesses measuring 2.3 x 2.3 x 2.3 cm and 3.4 x 2.5 x 2.6 cm. Cholel (more content not included)... Normal [facility] Emergency Department Summary on 07-08-2025 Emergency Department Summary [facility] Medical Records Department [address] [place] [address] Emergency Department Summary 07/08/25 MR#: [id number] Acct: [id number] Name: TOOTIE GOLDMAN Rep #: [id number] : 1960 65 From: Natalie George MD PCP: Annette Romano LINKING MACHINE OPERATOR-C Status:ADM IN [id number] H[facility] History of Present Illness Chief Complaint: Complaint Narrative Narrative: Patient is a 65-year-old female presenting to the emergency department for lower abdominal cramping and decreased appetite. Patient arrives here with . He helps provide history along with patient. They state that Friday about 10 days ago she developed flulike symptoms. States that she went to the doctor on Friday and had labs done that showed dehydration and was given 2 L of fluids. Was instructed to continue drinking lots of fluids at home. She feels like she is drinking a significant fluids but has no appetite. States that about 3 to 4 days ago she developed lower abdominal cramping that comes and goes. She has been taking Motrin for pain control. Denies any known fever. She is reporting chills. Endorses some mild nausea with no vomiting. Denies any chest pain or shortness of breath. Reports nonbloody diarrhea about 2-3 episodes a day. Denies any dysuria, hematuria, urgency or frequency. States she feels when she is urinating she is only dribbling. [facility] Medical History High cholesterol Hypertension Home Medications ???Medication ???Instructions ???Recorded ???Last Taken ???Type atorvastatin 40 mg tablet (Lipitor) 40 mg PO DAILY high cholesterol 07/08/25 07/04/25 22:00 History 40 mg telmisartan 40 mg tablet (Micardis) 40 mg PO DAILY HTN 07/08/25 10:00 History 40 mg Allergy/AdvReac Type Severity Reaction Status Date / Time No Known Allergies Allergy Verified 07/08/25 10:22 Social History Smoking Status: Never smoker ROS ROS ED ROS Narrative See HPI EXAM Physical Exam Narrative Exam Narrative: Vital signs: Reviewed General: Alert and oriented x 3. No acute distress HEENT: Head is normocephalic and atraumatic, sinuses nontender, pupils equal round and reactive. Nares are patent. Oropharynx and throat exams normal. Neck: Supple without lymphadenopathy nontender Cardiovascular: Regular rate and rhythm, no murmurs. No rubs or gallops. Normal S1 and S2 Respiratory: Clear to auscultation bilaterally. No wheezes, rales, rhonchi Abdominal: Soft and mildly tender to palpation in the lower abdomen nothing focal. Normal bowel sounds. No guarding or rebound. Nonsurgical abdomen Extremities: No tenderness. No bruising. Normal range of motion. Normal sensation. Skin: No rash or redness. Neurological: Cranial nerves II through XII are grossly intact. Normal strength and sensation. Normal cerebellar function The rest of the physical exam is unremarkable Const Vital Signs: 07/08/25 10:19 07/08/25 10:21 07/08/25 11:21 Temperature 98.7 F 98.7 F 98.6 F Temperature Source Oral Oral Oral Pulse Rate 75 75 65 Respiratory Rate 16 16 16 Blood Pressure 139/66 H 139/66 H 118/64 Blood Pressure Mean 90 90 82 Pulse Ox 99 99 99 Oxygen Delivery Method Room Air Room Air Room Air 07/08/25 12:00 Temperature 98.6 F Temperature Source Oral Pulse Rate 65 Respiratory Rate 16 Blood Pressure 120/64 Blood Pressure Mean 82 Pulse Ox 99 Oxygen Delivery Method MDM MDM MDM Narrative Medical decision making narrative: Patient is a 65-year-old female presenting to the emergency department for lower abdominal cramping, decreased appetite and decreased urination. Patient was seen and examined. Vitals are stable. Patient resting bed comfortably no acute distress. Fluid bolus started. Labs and CT imaging ordered given patient's age and symptoms. CBC with leukocytosis of 20.2 and anemia of 9.9. CMP with mild elevation in total bilirubin of 1.73, elevated AST, ALT and alk phos mildly. No RUQ pain on exam, this can further be evaluated while patient is admitted with gallbladder US if surgery or hospitalist thinks it is necessary to further evaluate. Lipase within normal limits. Urinalysis with 100 leukocyte esterase however no other signs of infection. CT abdomen pelvis shows acute sigmoid diverticulitis with 2 pelvic abscesses. There is cholelithiasis but no biliary dilatation to be consistent with choledocholithiasis. Zosyn given. No signs of sepsis. General surgery consulted. Dr. Smith recommended medicine admission and surgery will be on consult. He reports that the abscesses are too central to be IR drained. Discussed patient with Dr. Hernandez for admission and he accepted the patient. Patient and (more content not included)... Normal [facility] H AND P Exam - Hospitaliston 07-08-2025 H&P Exam - Hospitalist [facility] Medical Records Department [address] [place] [address] H P Exam - Hospitalist 07/08/25 1450 MR#: [id number] Acct: [id number] Name: TOOTIE GOLDMAN Rep #: [id number] : 1960 65 From: Fransisco Hernandez DO PCP: Annette Romano, LINKING MACHINE OPERATOR-C Status:ADM IN Location: [facility] [id number] HPI - General General Date of Admission: 07/08/25 Date of Service: 07/08/25 Chief Complaint: Abdominal pain HPI Narrative TOOTIE GOLDMAN, is a 65 F who presents with abdominal pain. This is a 65-year-old female with a history of hypertension presents with 10 days of not feeling well. Has had decreased appetite, increased abdominal pressure in the suprapubic region. [place] that she was having urinary tract infection and with a not getting better, she presented to the emergency room for evaluation. She underwent a CAT scan that showed diverticulitis as well as to abscesses, one 2 cm and the other 3 cm. Patient received pip-tazo in the emergency room. General surgery was contacted and recommended medical management this time and no imminent need for surgery at this time. Discussed with Dr. Smith, who reviewed the images and did not feel that these were not accessible via IR. [ ] [facility] Medical History High cholesterol Hypertension Home Medications ???Medication ???Instructions ???Recorded ???Last Taken ???Type atorvastatin 40 mg tablet (Lipitor) 40 mg PO DAILY high cholesterol 07/08/25 07/04/25 22:00 History 40 mg telmisartan 40 mg tablet (Micardis) 40 mg PO DAILY HTN 07/08/25 10:00 History 40 mg Allergy/AdvReac Type Severity Reaction Status Date / Time No Known Allergies Allergy Verified 07/08/25 10:22 Social History Smoking Status: Never smoker ROS ROS Narrative No nausea or vomiting. Has been having diarrhea. Urinary frequency. All review of systems were negative except as mentioned above in the history of present illness and the other review of systems. Vital Signs Vital Signs Vital Signs: 07/08/25 10:19 07/08/25 10:21 07/08/25 11:21 Temperature 37.1 C 37.1 C 37.0 C Temperature Source Oral Oral Oral Pulse Rate 75 75 65 Respiratory Rate 16 16 16 Blood Pressure 139/66 H 139/66 H 118/64 Blood Pressure Mean 90 90 82 Blood Pressure Source Blood Pressure Position Blood Pressure Location Pulse Ox 99 99 99 Oxygen Delivery Method Room Air Room Air Room Air 07/08/25 12:00 07/08/25 12:30 07/08/25 12:36 Temperature 37.0 C 37.0 C Temperature Source Oral Pulse Rate 65 71 71 Respiratory Rate 16 16 16 Blood Pressure 120/64 123/73 H 123/73 H Blood Pressure Mean 82 89 89 Blood Pressure Source Blood Pressure Position Blood Pressure Location Pulse Ox 99 98 98 Oxygen Delivery Method Room Air 07/08/25 13:33 Temperature 36.8 C Temperature Source Oral Pulse Rate 95 Respiratory Rate 16 Blood Pressure 137/64 H Blood Pressure Mean 88 Blood Pressure Source Monitor Blood Pressure Position Semi-Fowlers Blood Pressure Location Left Arm Pulse Ox 95 Oxygen Delivery Method Room Air Weight Weight: 65.7 kg Body Mass Index (BMI) 24.7 Physical Exam Const alert and no apparent distress HEENT normocephalic and head/scalp atraumatic Resp normal respiratory effort, no retractions, no use of accessory muscles and clear to auscultation bilaterally Cardio regular rate, regular rhythm, S1 normal heart sound and S2 normal heart sound GI normal to inspection, nondistended, normoactive bowel sounds, soft to palpation and non-distended GI Narrative: tender to palpitations in suprapubic region. Neuro Sensorium / Orientation: awake and alert Results Lab / Micro Data 07/08/25 10:40 07/08/25 10:40 Labs: Laboratory Results - last 24 hr 07/08/25 10:40: WBC 20.2 H, RBC 3.35 L, Hgb 9.9 L, Hct 29.8 L, MCV 89.0, MCH 29.6, MCHC 33.2, RDW Std Deviation 48.5 H, RDW Coeff of Crescencio 14.8 H, Plt Count 287, MPV 10.3, Immature Gran % (Auto) 2.800 H, Neut % (Auto) 79.3 H, Lymph % (Auto) 11.4 L, [place] % (Auto) 5.3, Eos % (Auto) 0.8, Baso % (Auto) 0.4, Absolute Neuts (auto) 16.1 H, Absolute Lymphs (auto) 2.30, Nucleated RBC % 0, Sodium 139, Potassium 3.7, Chloride 100, Carbon Dioxide 26.7, Anion Gap 12, BUN 10, Creatinine 0.72, Estim Creat Clear Calc 73.66, Est GFR (MDRD) Non-Af 94, BUN/Creatinine Ratio 13.3, Glucose 109 H, Calcium 9.5, T otal Bilirubin 1.73 H, Direct Bilirubin 1.09 H, AST 44 H, ALT 62 H, Alkaline Phosphatase 197 H, Total Protein 7.8, Albumin 3.6, Globulin 4.1, Lipase 18 10/24/25 10:50: Urine Color Yellow, Urine Clarity Sl. Cloudy, Urine pH 7.0, Ur Specific S[place]y 1.005, Urine Protein Negative, Urine Glucose (UA) Nor (more content not included)... Normal [facility] Lipaseon 07-08-2025 Lipase [Catalytic activity/Vol] 18 U/L Normal 13-75 [facility] Comment on above: Result Comment: Miguel velazquez note: LIPASE revised reference range effective 22. New Lipase methodology. Expected to produce lower values than the previous assay method. NEW Reference Range: 13 - 75 U/L Performed By: #### L 100.0100, L501.2450, L500.3400, L500.2500 #### [facility] Laboratory [address] [place], [address] Liver Profileon 07-08-2025 Albumin [Mass/Vol] 3.6 g/dL Normal 3.4-4.8 [facility] Comment on above: Performed By: #### L 100.0100, L501.2450, L500.3400, L500.2500 #### [facility] [address] [place], [address] ALK PHOS 197 U/L High 35-104 [facility] Comment on above: Performed By: #### L 100.0100, L501.2450, L500.3400, L500.2500 #### [facility] [address] [place], [address] ALT [Catalytic activity/Vol] 62 U/L High <=34 [facility] Comment on above: Performed By: #### L 100.0100, L501.2450, L500.3400, L500.2500 #### [facility] [address] [place], [address] AST [Catalytic activity/Vol] 44 U/L High <=31 [facility] Comment on above: Performed By: #### L 100.0100, L501.2450, L500.3400, L500.2500 #### [facility] [address] [place], [address] Bilirubin [Mass/Vol] 1.73 mg/dL High 0.00-1.30 [facility] Comment on above: Performed By: #### L 100.0100, L501.2450, L500.3400, L500.2500 #### [facility] [address] [place], [address] Bilirubin.direct [Mass/Vol] 1.09 mg/dL High 0.00-0.30 [facility] Comment on above: Performed By: #### L 100.0100, L501.2450, L500.3400, L500.2500 #### [facility] [address] [place], [address] Globulin (S) [Mass/Vol] 4.1 g/dL Normal 2.2-4.2 [facility] Comment on above: Performed By: #### L 100.0100, L501.2450, L500.3400, L500.2500 #### [facility] [address] [place], [address] T PROT 7.8 g/dL Normal 5.9-8.4 [facility] Comment on above: Performed By: #### L 100.0100, L501.2450, L500.3400, L500.2500 #### [facility] [address] [place], [address] Urinalysis, Completeon 07-08 RBC 0-5 SEEN Normal 0-5 [facility] Comment on above: Order Comment: CLEAN CATCH Performed By: #### L 400.0001 #### [facility] [address] [place], [address] WBC 0-5 SEEN Normal 0-5 [facility] Comment on above: Order Comment: CLEAN CATCH Performed By: #### L 400.0001 #### [facility] [address] [place], [address] EPI,SQUAMOUS 0-5 SEEN Normal 5-10 [facility] Comment on above: Order Comment: CLEAN CATCH Performed By: #### L 400.0001 #### [facility] [address] [place], [address] BACTERIA 0 SEEN Normal None Seen [facility] Comment on above: Order Comment: CLEAN CATCH Performed By: #### L 400.0001 #### [facility] [address] [place], [address] Mucus Ql (Urine sed) 0 SEEN Normal [facility] Comment on above: Order Comment: CLEAN CATCH Performed By: #### L 400.0001 #### [facility] [address] [place], [address] Final Surgical Pathology Rep sarah 11-13-2023 Final Surgical Pathology Report . Pathology Reports Accession: Collected Date/Time: Received Date/Time: Pathologist: [id number] 11/11/2023 09:25 EST 11/12/2023 14:15 EST DIVINE LOO MD Final Surgical Pathology Report DIAGNOSIS: A. RIGHT COLON POLYP: - TUBULAR ADENOMA B. COLON/RECTUM, 5 CM, POLYP: - HYPERPLASTIC POLYP COMMENT: [facility] - [id number] CLINICAL INFORMATION: SCREENING COLONOSCOPY SPECIMEN: A RIGHT COLON POLYP B COLON BX @ 5 CM GROSS DESCRIPTION: All parts labelled with patient name and [id number] A. Received in formalin labeled right colon is 1 harris-brown tissue fragment measuring 0.4 x 0.3 cm. TS-1 B. Received in formalin labeled 5 cm is 1 harris-brown tissue fragment measuring 0.2 cm. Fecal debris also identified. TS-1 Stcaey Alexander, Grossing Ultrasound Applications Specialist/ Dr. Mark Alarcon, Pathologist Dictated by Stacey Alexander MICROSCOPIC DESCRIPTION: The microscopic examination is performed, except in the case of Gross Only. Electronically Signed by Pathology Report verified by [facility] DIVINE LOO Sign out Date: 11/13/2023 11:35 Performing Lab: [facility], [address] [place] [id number] [facility] Pathology Dept Disclaimer If ancillary studies were utilized, the following Laboratory Developed Test (LDT) disclaimer will apply: Under CLIA requirements, [facility] Pathology Laboratory is qualified to perform high complexity testing. For all ancillary stains, positive and negative controls stain appropriately. Performance characteristics of immunohistochemical and chromogenic in-situ hybridization tests have been determined by [facility] Pathology Laboratory. These tests are used for clinical purposes, They should not be regarded as investigational or for research. Normal [facility] ([place]) Encounters Encounter Date Encounter Type Care Provider Facility Start: 07-19-2025 End: 07-19-2025 ambulatory Annette Romano NP Facility:[facility] Start: 07-15-2025 ambulatory Annette Romano LINKING MACHINE OPERATOR Fa cility:[facility] Start: 07-08-2025 ambulatory [facility] Facility:[facility] Start: 07-08-2025 End: 07-10-2025 Evaluation and management of inpatient [facility] Facility:[facility] Start: 11-11-2023 End: 11-11-2023 [facility] Start: 11-04-2023 End: 11-04-2023 [facility] Payers Date Payer Category Payer Self-pay 2025 Unknown [id number] Unknown [id number] .. [id number] Unknown [id number] Unknown [id number] Unknown [id number] .16.8 [id number] Unknown [id number] 2.16.8 [id number] Unknown [id number] 2.16.8 [id number] Unknown [id number] 2.16.8 [id number] Unknown [id number] 2.16.8 [id number] Unknown [id number] 2.16.8 [id number] Discharge summary note 07-10-2025 Note Date & Type Note Facility 07-10-2025 Note [facility] Medical Records Department [address] [place] [address] Discharge Summary 07/10/25 1400 MR#: [id number] Acct: [id number] Name: TOOTIE GOLDMAN Rep #: [id number] : 1960 65 From: Fransisco Hernandez DO PCP: FABIAN Hudson Status:ADM IN Location: [facility] [id number] Providers Date of Admission: 07/08/25 Primary Care Physician: FABIAN Hudson Consultations 07/08/25 13:21 Consult: General Surgery Routine Consulting Provider: Phan Smith Reason for Consult: diverticulitis. abscesses EMERGENT Consult: No MD Notified: Yes Date Notified: 07/08/25 Time Notified: 12:27 Method of Notification: Verbal Reason For Visit: DIVERTICULITIS Diagnosis Discharge Diagnosis (1) Diverticulitis: Status: Acute Code(s): K57.92 - Diverticulitis of intestine, part unspecified, without perforation or abscess without bleeding Plan: Improving. With abscesses No plans for any surgery at this time. The abscesses are not amenable to IR drainage given their location Continue with pip-tazo Advance diet to transition. Will reevaluate to see if patient would require more time in the hospital. Plan Leukocytosis: improved. Down from 20 to 15. Hypertension controlled. Continue with antihypertensives Hyperlipidemia: Continue with statin VTE prophylaxis with Lovenox CODE STATUS: Addressed with the patient patient wished to be full code. DW patient's at bedside. Medications at Discharge Home Medications atorvastatin 40 mg tablet (Lipitor) 40 mg PO DAILY high cholesterol 07/08/25 telmisartan 40 mg tablet (Micardis) 40 mg PO DAILY HTN 07/08/25 ciprofloxacin HCl 500 mg tablet 500 mg PO Q12H #16 tabs 07/10/25 metronidazole 500 mg tablet 500 mg PO Q8H #24 tabs 07/10/25 oxycodone 5 mg tablet 5 mg PO Q6H PRN pain (scale score 7-10) 3 days #12 tabs 07/10/25 Hospital Course Operations None Procedures None Summary of Care Provided Hospital Course: Patient presents with abdominal pain. Been feeling sick for 10 days prior to arrival and was found to have diverticulitis with 2 abscesses. General surgery was involved and the location of these abscesses did not make them amenable to percutaneous drainage. Patient started on broad-spectrum antibiotics with pip-tazo and has improved during the course of this hospitalization. Patient has been tolerating diet and her pain is much improved. Patient will follow-up with general surgery as outpatient and they will arrange for further imaging of her abdomen to see about resolution of these abscesses. Patient be discharged in stable condition. Weight / BMI Weight Weight: 65.7 kg Body Mass Index (BMI) 24.7 ABG / Lab / Microbiology Data 07/10/25 05:25 07/10/25 05:25 Laboratory: Laboratory Results - last 24 hr 07/10/25 05:25: WBC 13.3 H, RBC 2.69 L, Hgb 8.0 L, Hct 24.3 L, MCV 90.3, MCH 29.7, MCHC 32.9, RDW Std Deviation 48.0 H, RDW Coeff of Crescencio 14.6, Plt Count 249, MPV 10.7, Immature Gran % (Auto) 1.400 H , Neut % (Auto) 77.7 H, Lymph % (Auto) 13.8 L, [place] % (Auto) 5.0, Eos % (Auto) 1.6, Baso % (Auto) 0.5, Absolute Neuts (auto) 10.4 H, Absolute Lymphs (auto) 1.84, Nucleated RBC % 0, Sodium 137, Potassium 3.3, Chloride 103, Carbon Dioxide 22.6, Anion Gap 11, BUN 10, Creatinine 0.62 L, Estim Creat Clear Calc 85.53, Est GFR (MDRD) Non-Af 99, BUN/Creatinine Ratio 15.8, Glucose 75, Calcium 8.2 D/C Instructions DC O2, CPAP, BIPAP Needs Home O2 Discharge instructions: No Meaningful Use Info Meaningful Use Meaningful Use Diagnoses (Choose all that apply): None applicable Discharge Plan Admission Admit Date/Time: 07/08/25 12:25 Primary Reason for Your Visit: Diverticulitis Attending Provider: Fransisco Hernandez Primary Care Provider: Annette Romano NP Consulting Providers: Phan Smith Discharge Orders/Prescriptions Prescriptions: New oxycodone 5 mg Tablet 5 mg PO Q6H PRN (Reason: pain (scale score 7-10)) 3 Days Qty: 12 0RF ciprofloxacin HCl 500 mg tablet 500 mg PO Q12H Qty: 16 0RF metronidazole 500 mg tablet 500 mg PO Q8H Qty: 24 0RF Continued atorvastatin [Lipitor] 40 mg tablet 40 mg PO DAILY telmisartan [Micardis] 40 mg tablet 40 mg PO DAILY Referrals / Follow Up: Rodrigo Stark DO [Non-Staff, Family Practice] Phan Smith MD [Med Staff - Active Staff, General Surgery] - Within 2 Weeks Annette Romano LINKING MACHINE OPERATOR, LINKING MACHINE OPERATOR-C [Primary Care Provider, Medical] Disposition Disposition (needs filled in before D/C Order can be placed): Home, Self Care Charges/Coding Visit Charges Inpatient E M: 80826 Disch Hosp 07/10/25 1407 Cosigner Signature (if applicable): CC: LINKING MACHINE OPERATOR-C Annette Romano; Dr. Fransisco Hernandez DO Signed [facility] Summary Purpose Family History No Family History Records FoundNo Family History Records FoundNo Family History Records Found Advance Directives No Advanced Directives Records FoundNo Advanced Directives Records FoundNo Advanced Directives Records Found Additional Source Comments INFORMATION SOURCE (unrecogn ized section and content) DATE CREATED AUTHOR 11/15/2023 [facility] DATE CREATED AUTHOR AUTHOR'S ORGANIZ ATION 11/15/2023 [facility] ([place]) DATE CREATED AUTHOR AUTHOR'S ORGANIZ ATION 07/21/2025 [facility] FOR RECORDS PERTAINING TO PATIENTS WHO ARE OR HAVE BEEN ENROLLED IN A CHEMICAL DEPENDENCY/SUBSTANCEABUSE PROGRAM, SOME INFORMATION MAY BE OMITTED. This clinical summary was aggregated from multiple sources. Caution should be exercised in using it in the provision of clinical care. This summary normalizes information from multiple sources, and as a consequence, information in this document may materially change the coding, format and clinical context of patient data. In addition, data may be omitted in some cases. CLINICAL DECISIONS SHOULD BE BASED ON THE PRIMARY CLINICAL RECORDS. [facility]. provides no warranty or guarantee of the accuracy or completeness of information in this document.
--- NOTE | 2025-07-24 20:15 | EDS_ITS ---
HPI History of Present Illness Chief Complaint: Nausea/Vomiting/Diarrhea Narrative Narrative: Chief complaint and HPI: 65-year-old female with recent diverticulitis presents for evaluation of nausea, vomiting, diarrhea. History taken by patient as well as medical record. On chart review, patient was seen in our emergency department on 07/04/2025 for abdominal pain. She was diagnosed with diverticulitis with 2 pelvic abscesses. I reviewed the discharge note. Patient was admitted to the hospital in which she was treated with broad-spectrum antibiotics. She was ultimately discharged home on ciprofloxacin and metronidazole. Patient states that she has finished her antibiotics. States today she developed nausea, vomiting, diarrhea. Had some abdominal pain that has since resolved. Vomiting and diarrhea is nonbloody. Endorses decreased appetite. Denies any fever, chills, URI symptoms, dysuria. Review of systems: See HPI Medications: As listed on the chart Allergies: As listed on the chart PFSH: Per chart Vital signs: As listed on the chart. Reviewed. Physical exam: Gen: A&O x3, NAD Head: Normocephalic, atraumatic Eyes: No sclera icterus, conjunctiva clear ENT: Moist mucous membranes CV: RRR, no murmurs Resp: Lungs CTA BL, no w/r/c GI: Abd soft, mildly distended, non-tender, no r/r/g Musc: Full ROM, no deformity Skin: Warm, dry Neuro: Alert, oriented, grossly intact, sensation intact Psych: Cooperative, appropriate mood and affect PFSH PFSH Medical History Diverticulitis Colonic diverticular abscess High cholesterol Hypertension Home Medications ?Medication ?Instructions ?Recorded ?Last Taken ?Type atorvastatin 40 mg tablet (Lipitor) 40 mg PO DAILY hig h cholesterol 07/08/25 07/04/25 22:00 History 40 mg telmisartan 40 mg tablet (Micardis) 40 mg PO DAILY HTN 07/08/25 07/08/25 10:00 History 40 mg oxycodone 5 mg tablet 5 mg PO Q6H PRN pain (scale score 07/10/25 Unknown Rx 7-10) 3 days #12 tabs Allergy/AdvReac Type Severity Reaction Status Date / Time No Known Allergies Allergy Verified 07/24/25 19:22 Family History (Updated 07/19/25 @ 15:17 by Danni Collado) Mother Hypertension High cholesterol CVA (cerebral vascular accident) Surgical History No history of previous surgery Social History (Updated 07/19/25 @ 15:17 by Danni Collado) Smoking Status: Never smoker alcohol intake: never substance use type: does not use EXAM Physical Exam Const Vital Signs: 07/24/25 19:21 07/24/25 21:19 07/24/25 21:30 Temperature 97.8 F 100.1 F H 100.1 F H Temperature Source Temporal Oral Oral Pulse Rate 104 H 78 72 Respiratory Rate 16 16 18 Blood Pressure 103/58 L 112/50 L 112/50 L Blood Pressure Mean 73 70 70 Pulse Ox 96 96 97 Oxygen Delivery Method Room Air Room Air Room Air 07/24/25 22:55 07/25/25 00:10 Temperature 98.7 F Temperature Source Oral Pulse Rate 87 88 Respiratory Rate 16 18 Blood Pressure 86/38 L 109/49 L Blood Pressure Mean 54 69 Pulse Ox 98 97 Oxygen Delivery Method Room Air MDM MDM MDM Narrative Medical decision making narrative: 65-year-old female with recent diverticulitis presents for evaluation of nausea, vomiting, diarrhea. History taken by patient as well as medical record. On chart review, patient was seen in our emergency department on 07/04/2025 for abdominal pain. She was diagnosed with diverticulitis with 2 pelvic abscesses. I reviewed the discharge note. Patient was admitted to the hospital in which she was treated with broad-spectrum antibiotics. She was ultimately discharged home on ciprofloxacin and metronidazole. Patient states that she has finished her antibiotics. States today she developed nausea, vomiting, diarrhea. Had some abdominal pain that has since resolved. Differential diagnosis includes but is not limited to worsening diverticulitis, electrolyte abnormality, dehydration, UTI, pancreatitis. NS bolus, Zofran ordered for symptoms. Laboratory workup ordered including CT abdomen pelvis. CBC with leukocytosis of 18.4 this is increased from her discharge on 07/15. Baseline anemia of 9.8. Platelets unremarkable. CMP shows hyponatremia at 130. Patient receiving fluids. No GRETA. No transaminitis. Lipase unremarkable. UA negative for UTI. Patient became febrile here in the emergency department. Tylenol ordered. With elevated leukocytosis the concern is for intra-abdominal infection although this could still be viral. CT abdomen pelvis pending. The read has been delayed in which I have called radiology multiple times to have it read. While waiting, patient is became hypotensive. Patient meets sepsis. Patient's 30 cc/kg bolus is 2 L. She already received a liter therefore another liter ordered. Zosyn ordered for suspected intra-abdominal infection. Will add on lactic acid and coags. Blood cultures will be obtained before antibiotics given. After only receiving about 300 mL of fluid, patient's blood pressure has already improved. CT abdomen pelvis shows stable colonic diverticulosis in the sigmoid diverticulitis associated with abscess. Patient will warrant admission. General surgery consulted. I spoke with Dr. Smith. Who follows with the patient. Agrees with admission. Recommends hospitalist admission. Patient and family updated of all results and understanding of the plan. Patient discussed with Dr. Boothe who accepted admission to the ICU. Patient's blood pressure now 109/49. Impression: 1. Sepsis secondary to diverticulitis with abscess 2. Recent history of diverticulitis with abscess Lab Data Labs: Laboratory Results - last 24 hr 07/24/25 07/24/25 19:52 20:43 WBC 18.4 H RBC 3.30 L Hgb 9.8 L Hct 28.7 L MCV 87.0 MCH 29.7 MCHC 34.1 RDW Std Deviation 44.5 H RDW Coeff of Crescencio 14.0 Plt Count 250 MPV 10.2 Immature Gran % (Auto) 0.400 Neut % (Auto) 89.3 H Lymph % (Auto) 5.5 L [place] % (Auto) 4.1 Eos % (Auto) 0.3 Baso % (Auto) 0.4 Absolute Neuts (auto) 16.5 H Absolute Lymphs (auto) 1.01 Nucleated RBC % 0 Sodium 130 L Potassium 4.0 Chloride 97 L Carbon Dioxide 21.2 Anion Gap 12 BUN 19 Creatinine 0.88 Estim Creat Clear Calc 55.77 Est GFR (MDRD) Non-Af 74 BUN/Creatinine Ratio 21.6 H Glucose 120 H Calcium 9.0 Total Bilirubin 1.19 AST 20 ALT 17 Alkaline Phosphatase 97 Total Protein 7.2 Albumin 3.8 Globulin 3.4 Albumin/Globulin Ratio 1.1 Lipase 23 Urine Color Yellow Urine Clarity Sl. Cloudy Urine pH 6.0 Ur Specific [place] 1.020 Urine Protein 30 H Urine Glucose (UA) Normal Urine Ketones Negative Urine Occult Blood Negative Urine Nitrite Negative Urine Bilirubin Negative Urine Urobilinogen Normal Ur Leukocyte Esterase 25 H Urine RBC 0 SEEN Urine WBC 0-5 SEEN Ur Squamous Epith Cells 5-10 SEEN Ur Transition Epith Cell 0-5 SEEN Urine Bacteria 3+ Hyaline Casts 0-5 SEEN Urine Mucus 0 SEEN Radiography Diagnostic Testing: Clinical Impression(s) from Imaging Studies Abdomen/Pelvis CT 07/24/25 20:02 IMPRESSION: Stable colonic diverticulosis with sigmoid diverticulitis associated with related focal mural ill definition and mary-colic partly encapsulated air loculi and fluid densities currently shows more tendency for loculation forming a large pocket as detailed. Also size progression of the pericolic collection yet the tendency for loculation and resolution of the rest of the non encapsulated air loculi and fluid densities keeping with localization and ongoing improvement. Diffuse rectal and colonic mural thickening suggesting colitis, predominantly i nvolving the left side of the colon with fluid and gaseous distension of the right side of the colon. Stable rest of the study. Reading [facility] Discharge Plan Triage Chief Complaint: Nausea/Vomiting/Diarrhea ED Provider: Jalen Nuñez Dx/Rx/DC Orders Prescriptions: No Action atorvastatin [Lipitor] 40 mg tablet 40 mg PO DAILY telmisartan [Micardis] 40 mg tablet 40 mg PO DAILY oxycodone 5 mg Tablet 5 mg PO Q6H PRN (Reason: pain (scale score 7-10)) 3 Days Qty: 12 0RF Primary Care Provider: Annette Romano NP Referrals: Annette Romano NP, [employer] [Primary Care Provider, Medical] Print Language: Urdu
[2025-07-24 20:17] LABS: AST(SGOT) 20 U/L (<=31); Alanine Aminotransfer ALT/SGPT 17 U/L (<=34); Albumin, Serum 3.8 g/dL (3.4-4.8); Alkaline Phosphatase 97 U/L (35-104); Anion Gap 12 (5-15); BUN 19 mg/dL (4-19); BUN/Creat Ratio 21.6 RATIO (10-20); Calcium,Total 9.0 mg/dL (7.6-11.0); Carbon Dioxide 21.2 mmol/L (21.0-32.0); Chloride 97 mmol/L (98-108); Estimated Creatinine Clearance 55.77 ml/min (50-250); Globulin 3.4 g/dL (2.2-4.2); Glucose 120 mg/dL (70-99); Lipase 23 U/L (13-75); Potassium 4.0 mmol/L (3.3-5.1)
[2025-07-24 20:52] LABS: Mucous, Urine 0 SEEN /hpf (<or=2+); Red Blood Cells-Urine 0 SEEN /hpf (0-5)
[2025-07-24 20:57] LABS: Color, Urine Yellow (Yellow); Glucose, Dipstick Normal (Normal); Ketone-Dipstick Negative (Negative); Leukocyte Esterase-Dipstick 25 /ul (Negative); Nitrite-Dipstick Negative (Negative); Occult Blood-Urine Negative /ul (Negative); Protein-Dipstick 30 mg/dl (Negative); Specific Gravity, Urine 1.020 (1.002-1.030); Urine Bilirubin Dipstick Negative (Negative)
[2025-07-24 21:04] LABS: Squamous Epithelial Cells - UA 5-10 SEEN /hpf (5-10); Transitional Epithelial - Ur 0-5 SEEN /hpf (0-5)
[2025-07-24 21:19] VITALS: BP 112/50; PULSE 78; RESP 16; TEMP 37.8; O2SAT 96
[2025-07-24 21:30] VITALS: BP 112/50; PULSE 72; RESP 18; TEMP 37.8; O2SAT 97
[2025-07-24 22:55] VITALS: BP 86/38; PULSE 87; RESP 16; TEMP 37.1; O2SAT 98
--- NOTE | 2025-07-24 23:21 | ED.RN ---
Dr. Fitzgerald notified of BP results and triggering sepsis. Per Dr. Fitzgerald waiting on final CT read before drawing blood cultures or starting atx.
[2025-07-24] MEDS: Piperacil/Tazobactam 4.5 GM in 0.9% Normal Saline (100mL MB+) 100 ML IV (23:41)
[2025-07-25] VITALS (48 sets, daily range): BP systolic 66–155; BP diastolic 40–63; PULSE 60–88; RESP 16–25; TEMP 36.7–37.2; O2SAT 93–99; BMI 24.3
--- NOTE | 2025-07-25 00:11 | PCM.HP.STD ---
[facility] - General General Date of Admission: 07/25/25 Date of Service: 07/25/25 Chief Complaint: Abdominal Pain/N/V/D HPI Narrative TOOTIE GOLDMAN, is a 65 F who presented to the emergency department [facility] on 07/24/2025 with chief complaint of abdominal pain, nausea, vomiting, and diarrhea. Patient was recently admitted here from 07/08/2025 through 07/10/2025 for diverticulosis with diverticular abscess. At that point in time the CT revealed 2 pelvic abscesses measuring 2.3 x 2.3 x 2.3 and 3.4 x 2.5 x 2.6 cm. Drainage was not pursued as general surgery felt that the abscesses were not amenable to percutaneous drainage. She was admitted to the medical floor with a consultation to general surgery and treated Zosyn while hospitalized and placed on Cipro and Flagyl at the time of discharge. She had a follow-up with Dr. Smith on 07/19/2025 and was slowly improving. The patient and her present today after her symptoms started early on the a.m. of 07/24/2025. Her reported it started at about 2:30 in the morning. She has been miserable since. She has had nausea, vomiting, and pretty profuse diarrhea. She has been feeling weak. They called general surgery's office and were transferred to the on-call physician who advised ongoing monitoring but the patient continued to feel poorly so they elected come to the emergency department this evening. Patient states he has lost about 10 pounds since this all started. Vital signs on presentation showed temperature of 97.8 with a Tmax of 100.1, heart rate 101, blood pressure 86/38, respiratory rate 16 and pulse ox was 96% on room air. CBC shows a marked leukocytosis with a white count of 18.4, chronic anemia but stable at 9.8 and a left shift with an 89.3% neutrophilia. Her last CBC on 07/15/2025 had no left shift and a normal white count. Chemistry panel showed hyponatremia with a sodium of 130 and hypochloremia with a chloride of 97. Glucose was 120. Lactic acid was less than 1. Lipase was normal at 23. UA is consistent with some dehydration with a specific gravity of 1.020 but not suggestive of infection. With her history of a repeat CT of the abdomen pelvis was performed and she was found to have stable colonic diverticulosis with sigmoid diverticulitis and associated related focal mural wall thickening and pericolic partially encapsulated air loci and fluid densities felt to be a large pocket of abscess at 7.5 x 6.5 x 4 cm. Patient was persistently hypotensive with a markedly elevated white count so sepsis was considered and was she was treated with fluid boluses, cultures were obtained and she was started on Zosyn for intra-abdominal coverage. [facility] Medical History Anemia Diverticulitis Colonic diverticular abscess High cholesterol Hypertension Home Medications ?Medication ?Instructions ?Recorded ?Last Taken ?Type atorvastatin 40 mg tablet (Lipitor) 40 mg PO DAILY high cholesterol 07/08/25 07/04/25 22:00 History 40 mg telmisartan 40 mg tablet (Micardis) 40 mg PO DAILY HTN 07/08/25 07/08/25 10:00 History 40 mg oxycodone 5 mg tablet 5 mg PO Q6H PRN pain (scale score 07/10/25 Unknown Rx 7-10) 3 days #12 tabs Allergy/AdvReac Type Severity Reaction Status Date / Time No Known Allergies Allergy Verified 07/24/25 19:22 Family History Mother Hypertension High cholesterol CVA (cerebral vascular accident) Surgical History No history of previous surgery Social History (Updated 07/25/25 @ 00:[address] Nandini Boothe DO) household members: spouse housing: house Smoking Status: Never smoker alcohol intake: never substance use type: does not use mart/yazdanism: Presybeterian ROS Constitutional Constitutional: Reports anorexia, change in weight, chills, fatigue, fever(s), malaise and weakness; Denies night sweats or other Eyes Eyes: Denies blurry vision, change in eye color, change in vision, discharge from eye(s), double vision, erythema, eye pain, loss of vision or other ENT HEENT: Denies abnormal hearing, dysphagia, ear pain, epistaxis, headache(s), hearing loss, nasal congestion, nasal discharge, post nasal drip, sinus pressure, sore throat or other Cardiovascular Cardiovascular: Denies chest pain, claudication, dyspnea on exertion, edema, lightheadedness, orthopnea, palpitations, paroxysmal nocturnal dyspnea, rapid heart rate, syncope or other Respiratory/Chest Respiratory/Chest: Denies cough, dyspnea, excessive phlegm production, hemoptysis, productive cough, shortness of breath at rest, shortness of breath with exertion, wheezing or other Gastrointestinal Gastrointestinal: Reports abdominal pain, diarrhea, nausea and vomiting; Denies coffee ground emesis, constipation, dyspepsia, hematemesis, hematochezia, loose stools, melena or other Genitourinary Genitourinary: Denies burning urination, difficulty urinating, dysuria, hematuria, nocturia, urinary frequency, urinary hesitancy, urinary incontinence, urinary urgency or other Musculoskeletal Musculoskeletal: Denies arthralgias, back pain, joint pain, joint stiffness, joint swelling, myalgias, neck pain or other Neurologic Neurologic: Denies abnormal gait, abnormal speech, confusion, disequilibrium, dizziness, focal weakness, headache(s), numbness, paresthesias, seizure-like activity, seizures, syncope, tingling, tremor(s) or other Psychiatric Psychiatric: Denies anxiety, depression, homicidal ideation, suicidal ideation or other Endocrine Endocrinology: Denies change in body appearance, cold intolerance, excessive sweating, heat intolerance, polydipsia, polyuria or other Hematologic/Lymphatic Hematologic/Lymphatic: Denies anemia, easy bleeding, easy bruising, lymphadenopathy or other Allergic/Immunologic Allergic/Immunologic: Denies rhinitis, hives, eczemia, asthma or other Vital Signs Vital Signs Vital Signs: 07/24/25 19:21 07/24/25 21:19 07/24/25 21:30 Temperature 97.8 F 100.1 F H 100.1 F H Temperature Source Temporal Oral Oral Pulse Rate 104 H 78 72 Respiratory Rate 16 16 18 Blood Pressure 103/58 L 112/50 L 112/50 L Blood Pressure Mean 73 70 70 Pulse Ox 96 96 97 Oxygen Delivery Method Room Air Room Air Room Air 07/24/25 22:55 07/25/25 00:10 Temperature 98.7 F Temperature Source Oral Pulse Rate 87 88 Respiratory Rate 16 18 Blood Pressure 86/38 L 109/49 L Blood Pressure Mean 54 69 Pulse Ox 98 97 Oxygen Delivery Method Room Air Weight Weight: 62.3 kg Body Mass Index (BMI) 23.6 Physical Exam Const alert, oriented x3 and average body habitus; Negative for no apparent distress, healthy appearing or well nourished Constitutional Narrative: Older, Presybeterian, white female, lying in bed, appears uncomfortable and toxic, at bedside General Appearance: cooperative HEENT normocephalic and head/scalp atraumatic HEENT Narrative: Mucous membranes are slightly dry, Mallampati is 2, no thrush Eyes Eyes Narrative: Mild conjunctiva pallor bilaterally, no scleral icterus Neck supple Neck Narrative: Trachea midline Resp normal respiratory effort, no retractions, no use of accessory muscles and clear to auscultation bilaterally Auscultation: Negative for rales, rhonchi or wheezes Cardio regular rate, regular rhythm, S1 normal heart sound, S2 normal heart sound, no murmurs, no rub, no gallops and no clicks GI normal to inspection, nondistended, normoactive bowel sounds and soft to palpation GI Narrative: Diffuse tenderness greater in the left lower quadrant to midline Extremity no clubbing, cyanosis or edema Extremity Narrative: 2+ pedal and radial pulses Skin no jaundice, no petechiae and no mottling Neuro moves all extremities and no focal motor deficits Speech: speech normal Psych Psych Narrative: Affect is flat but appropriate for current situation, eye contact is good and patient interacts appropriately Results Lab / Micro Data 07/24/25 19:52 07/24/25 19:52 Labs: Laboratory Results - last 24 hr 07/24/25 19:52: WBC 18.4 H, RBC 3.30 L, Hgb 9.8 L, Hct 28.7 L, MCV 87.0, MCH 29.7, MCHC 34.1, RDW Std Deviation 44.5 H, RDW Coeff of Crescencio 14.0, Plt Count 250, MPV 10.2, Immature Gran % (Auto) 0.400, Neut % (Auto) 89.3 H, Lymph % (Auto) 5.5 L, [place] % (Auto) 4.1, Eos % (Auto) 0.3, Baso % (Auto) 0.4, Absolute Neuts (auto) 16.5 H, Absolute Lymphs (auto) 1.01, Nucleated RBC % 0, Sodium 130 L, Potassium 4.0, Chloride 97 L, Carbon Dioxide 21.2, Anion Gap 12, BUN 19, Creatinine 0.88, Estim Creat Clear Calc 55.77, Est GFR (MDRD) Non-Af 74, BUN/Creatinine Ratio 21.6 H, Glucose 120 H, Calcium 9.0, Total Bilirubin 1.19, AST 20, ALT 17, Alkaline Phosphatase 97, Total Protein 7.2, Albumin 3.8, Globulin 3.4, Albumin/Globulin Ratio 1.1, Lipase 23 07/24/25 20:43: Urine Color Yellow, Urine Clarity Sl. Cloudy, Urine pH 6.0, Ur Specific [employer] 1.020, Urine Protein 30 H, Urine Glucose (UA) Normal, Urine Ketones Negative, Urine Occult Blood Negative, Urine Nitrite Negative, Urine Bilirubin Negative, Urine Urobilinogen Normal, Ur Leukocyte Esterase 25 H, Urine RBC 0 SEEN, Urine WBC 0-5 SEEN, Ur Squamous Epith Cells 5-10 SEEN, Ur Transition Epith Cell 0-5 SEEN, Urine Bacteria 3+, Hyaline Casts 0-5 SEEN, Urine Mucus 0 SEEN Imaging Radiology Impression Abdomen/Pelvis CT 07/24/25 20:02 IMPRESSION: Stable colonic diverticulosis with sigmoid diverticulitis associated with related focal mural ill definition and mary-colic partly encapsulated air loculi and fluid densities currently shows more tendency for loculation forming a large pocket as detailed. Also size progression of the pericolic collection yet the tendency for loculation and resolution of the rest of the non encapsulated air loculi and fluid densities keeping with localization and ongoing improvement. Diffuse rectal and colonic mural thickening suggesting colitis, predominantly involving the left side of the colon with fluid and gaseous distension of the right side of the colon. Stable rest of the study. [facility] Assessment & Plan Assessment/Plan (1) Colonic diverticular abscess: (2) Diverticulitis: (3) Leukocytosis: (4) Acute hyponatremia: PLAN: Plan Sepsis secondary to acute diverticulitis with diverticular abscess - Patient meets sepsis criteria via MAY 16 criteria with persistent hypotension, leukocytosis, tachycardia and source - As hospitalization it was felt that the abscess was not amenable to percutaneous drainage due to location - Start Zosyn - Blood cultures are pending - Fluid resuscitation per sepsis protocol - If persistently hypotensive may need to initiate pressors - General Surgery consultation--> notified by the emergency department Leukocytosis - Secondary to the above - Should improve with antibiotics Acute hyponatremia - Suspect related to decreased solute intake and some dehydration - No further workup needed at this time - Aggressive IV fluids as noted with maintenance fluids to follow - Repeat lab in a.m. Diarrhea - Patient has been on antibiotics recently so we will check for C. difficile and enteric panel - Given severity of current illness we will start empirically on oral vancomycin and if C. difficile is negative may discontinue Chronic normocytic anemia - Counts are stable - Will check iron studies to see if iron replacement would be appropriate Essential hypertension/hyperlipidemia - Hold home atorvastatin - Hold home telmisartan DVT prophylaxis - Subcu enoxaparin CODE STATUS - Full code Charges/Coding Visit Charges Inpatient E&M: 01010 Init Hosp L2
--- OUTSIDE RECORDS SUMMARY | 2025-07-25 00:25 | XMS RPT_ITS | CCD ---
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 Role Phone LALA, MICHELL T Admitting Unavailable LALA, MICHELL T Attending Unavailable LALA, MICHELL T Primary Care Unavailable LALA, MICHELL T Attending Unavailable LALA, MICHELL T Primary Care Unavailable LALA, MICHELL T Admitting Unavailable Jopperi, Fransisco Admitting Unavailable Jopperi, Fransisco Attending Unavailable Phan Smith Consulting Unavailable Juan Antonio DIRECTOR OF EVENTS, [facility] Unavailabl e Jopperi, Fransisco Admitting Unavailable Wantere, Phan Calabrese Attending Unavailable Phan Smith Consulting Unavailable Juan Antonio DIRECTOR OF EVENTS, [facility] Unavailabl e Jopperi, Fransisco Consulting Unavailable Jopperi, Fransisco Attending Unavailable Juan Antonio DIRECTOR OF EVENTS, Annette Shirley Referring Unavailabl e Juan Antonio DIRECTOR OF EVENTS, [employer] Primary Care Unavailabl e WanekPahn Attending Unavailable Juan Antonio DIRECT[facility] OF EVENTS, [facility] Unavailabl e WanekPhan Attending Unavailable [...] Surgery Visit Reporton 07-19 Surgery Visit Report [facility] [address] [place] [address] OFFICE VISIT Date of Service: 07/19/25 MR#: [id number] Acct: [id number] Name: TOOTIE GOLDMAN Rep #: [id number] : 1960 Provider: Dr. Phan carranza MD Age/Sex: 65/F Location: [facility] Status: Signed Intake Vital Signs 07/08/25 14:14 07/19/25 15:18 Height 5 ft 4.17 in 5 ft 4 in Weight: 136 lb 2 oz BMI 23.3 BP 111/72 Blood Pressure Location Rt brachial Position Sitting Respiration 18 Pulse 74 Pulse Source Monitor Pulse Oximetry (%) 98 Oxygen Delivery Method room air Intake Visit Reasons: F/U CT SCAN/DIVERTICULITIS Chief Complaint: F/U CT scan/Diverticulitis Director Of Radiology Required: No Accompanied by: Is patient in [...] her diverticulitis. She was recently hospitalized at [facility] after initially presenting to the [...] other v (more content not included)... Normal [facility] Abdomen/Pelvis WITH Contrast on 07-15-2025 Abdomen/Pelvis WITH Contrast [facility] Imaging Services [address] [place] [address] Abdomen/Pelvis WITH Contrast MR#: [id number] Acct: [id number] Name: TOOTIE GOLDMAN Rep #: [id number] : 1960 F 65 From: Arian robertson MD PCP: Annette Romano, DIRECTOR OF EVENTS-C Status: REG CLI Study: Abdomen/Pelvis WITH Contrast Date of Exam: Exam# [id number] Ordering Dr: Phan Smith MD PROCEDURE: ABDOMEN/PELVIS [...] has improved. Multiple gallstones. Hepatomegaly. Reading Location: [id number] CC: FABIAN Romano; Dr. Phan Smith MD Product Safety Tester: Signed Normal [facility] CBC W/Diff, Automatedon 10-3 Absolute Lymph 2.30 X10 3/uL Normal 0.83-4.51 [facility] Comment on above: Performed By: #### L 100.0100 ####[facility] [address] [place], [address] Absolute Neut 7.5 X10 3/uL Normal 2.0-7.7 [facility] Comment on above: Performed By: #### L 100.0100 ####[facility] [address] [place], [address] Basophils/100 WBC (Bld) 0.8 % Normal 0-1 [facility] Comment on above: Performed By: #### L 100.0100 ####[facility] [address] [place], [address] Eosinophils/100 WBC (Bld) 1.4 % Normal 0-5 [facility] Comment on above: Performed By: #### L 100.0100 ####[facility] [address] [place], [address] Erythrocyte distribution width (RBC) [Ratio] 14.5 % Normal 11.6-14.6 [facility] Comment on above: Performed By: #### L 100.0100 ####[facility] [address] [place], [address] Hematocrit (Bld) [Volume fraction] 31.4 % Low 37-47 [facility] Comment on above: Performed By: #### L 100.0100 ####[facility] [address] [place], [address] Hemoglobin (Bld) [Mass/Vol] 10.1 g/dL Low 12.0-15.0 [facility] Comment on above: Performed By: #### L 100.0100 ####[facility] [address] [place], [address] IG% 0.700 Normal 0.0-0.9 [facility] Comment on above: Result Comment: IG% - Immature Granulocytes (promyelocytes, myelocytes and metamyelocytes) > 1% indicates that a LEFT SHIFT is Present. Performed By: #### L 100.0100 ####[facility] [address] [place], [address] Lymphocytes/100 WBC (Bld) 21.0 % Normal 19-41 [facility] Comment on above: Performed By: #### L 100.0100 ####[facility] [address] [place], [address] MCH (RBC) [Entitic mass] 29.4 pg Normal 27.0-32.0 [facility] Comment on above: Performed By: #### L 100.0100 ####[facility] [address] [place], [address] MCHC (RBC) [Mass/Vol] 32.2 g/dL Normal 32-36 [facility] Comment on above: Performed By: #### L 100.0100 ####[facility] [address] [place], [address] MCV (RBC) [Entitic vol] 91.3 fL Normal 81-99 [facility] Comment on above: Performed By: #### L 100.0100 ####[facility] [address] [place], [address] Monocytes/100 WBC (Bld) 7.1 % Normal 0-10 [facility] Comment on above: Performed By: #### L 100.0100 ####[facility] [address] [place], [address] Neutrophils/100 WBC (Bld) 69.0 % Normal 47-70 [facility] Comment on above: Performed By: #### L 100.0100 ####[facility] [address] [place], [address] Nucleated RBC (Bld) [#/Vol] 0 10*3/uL Normal 0-5 [facility] Comment on above: Performed By: #### L 100.0100 ####[facility] [address] [place], [address] Platelet mean volume (Bld) [Entitic vol] 10.1 fL Normal 6.2-12.0 [facility] Comment on above: Performed By: #### L 100.0100 ####[facility] [address] [place], [address] Platelets (Bld) [#/Vol] 401 10*3/uL Normal 150-450 [facility] Comment on above: Performed By: #### L 100.0100 ####[facility] [address] [place], [address] RBC (Bld) [#/Vol] 3.44 10*6/uL Low 4.2-5.4 [facility] Comment on above: Performed By: #### L 100.0100 ####[facility] [address] [place], [address] RDW SD 48.0 fl High 35.1-43.9 [facility] Comment on above: Performed By: #### L 100.0100 ####[facility] [address] [place], [address] WBC (Bld) [#/Vol] 10.9 10*3/uL Normal 4.4-11.0 [facility] Comment on above: Performed By: #### L 100.0100 ####[facility] [address] [place], [address] Basic Metabolic Profile (BMP )on 07-10-2025 BUN/CRE 15.8 RATIO Normal 10-20 [facility] Comment on above: Performed By: #### L 500.2500, L100.0100 ####[facility] [address] [place], [address] Calcium [Mass/Vol] 8.2 mg/dL Normal 7.6-11.0 [facility] Comment on above: Performed By: #### L 500.2500, L100.0100 ####[facility] [address] [place], [address] Chloride [Moles/Vol] 103 mmol/L Normal 98-108 [facility] Comment on above: Performed By: #### L 500.2500, L100.0100 ####[facility] [address] [place], [address] CO2 [Moles/Vol] 22.6 mmol/L Normal 21.0-32.0 [facility] Comment on above: Performed By: #### L 500.2500, L100.0100 ####[facility] [address] [place], [address] Creatinine [Mass/Vol] 0.62 mg/dL Low 0.70-1.20 [facility] Comment on above: Performed By: #### L 500.2500, L100.0100 ####[facility] [address] [place], [address] ECRCL 85.53 ml/min Normal 50-250 [facility] Comment on above: Performed By: #### L 500.2500, L100.0100 ####[facility] [address] [place], [address] GAP 11 Normal 5-15 [facility] Comment on above: Performed By: #### L 500.2500, L100.0100 ####[facility] [address] [place], [address] GFR/1.73 sq M.predicted among non-blacks MDRD (S/P/Bld) [Vol rate/Area] 99 mL/min/{1.73_m2} Normal >60 [facility] Comment on above: Result Comment: mL/m in/1.73m2 CKD-EPI Creatinine Equation (2020) Performed By: #### L 500.2500, L100.0100 ####[facility] [address] [place], [address] Glucose [Mass/Vol] 75 mg/dL Normal 70-99 [facility] Comment on above: Performed By: #### L 500.2500, L100.0100 ####[facility] [address] [place], [address] Potassium [Moles/Vol] 3.3 mmol/L Normal 3.3-5.1 [facility] Comment on above: Performed By: #### L 500.2500, L100.0100 ####[facility] [address] [place], [address] Sodium [Moles/Vol] 137 mmol/L Normal 133-145 [facility] Comment on above: Performed By: #### L 500.2500, L100.0100 ####[facility] [address] [place], [address] Urea nitrogen [Mass/Vol] 10 mg/dL Normal 4-19 [facility] Comment on above: Performed By: #### L 500.2500, L100.0100 ####[facility] [address] [place], [address] CBC W/Diff, Automatedon 10-2 Absolute Lymph 1.84 X10 3/uL Normal 0.83-4.51 [facility] Comment on above: Performed By: #### L 500.2500, L100.0100 ####[facility] [address] [place], [address] Absolute Neut 10.4 X10 3/uL High 2.0-7.7 [facility] Comment on above: Performed By: #### L 500.2500, L100.0100 ####[facility] [address] [place], [address] Basophils/100 WBC (Bld) 0.5 % Normal 0-1 [facility] Comment on above: Performed By: #### L 500.2500, L100.0100 ####[facility] [address] [place], [address] Eosinophils/100 WBC (Bld) 1.6 % Normal 0-5 [facility] Comment on above: Performed By: #### L 500.2500, L100.0100 ####[facility] [address] [place], [address] Erythrocyte distribution width (RBC) [Ratio] 14.6 % Normal 11.6-14.6 [facility] Comment on above: Performed By: #### L 500.2500, L100.0100 ####[facility] [address] [place], [address] Hematocrit (Bld) [Volume fraction] 24.3 % Low 37-47 [facility] Comment on above: Performed By: #### L 500.2500, L100.0100 ####[facility] [address] [place], [address] Hemoglobin (Bld) [Mass/Vol] 8.0 g/dL Low 12.0-15.0 [facility] Comment on above: Performed By: #### L 500.2500, L100.0100 ####[facility] [address] [place], [address] IG% 1.400 High 0.0-0.9 [facility] Comment on above: Result Comment: IG% - Immature Granulocytes (promyelocytes, myelocytes and metamyelocytes) > 1% indicates that a LEFT SHIFT is Present. Performed By: #### L 500.2500, L100.0100 ####[facility] [address] [place], [address] Lymphocytes/100 WBC (Bld) 13.8 % Low 19-41 [facility] Comment on above: Performed By: #### L 500.2500, L100.0100 ####[facility] [address] [place], [address] MCH (RBC) [Entitic mass] 29.7 pg Normal 27.0-32.0 [facility] Comment on above: Performed By: #### L 500.2500, L100.0100 ####[facility] [address] [place], [address] MCHC (RBC) [Mass/Vol] 32.9 g/dL Normal 32-36 [facility] Comment on above: Performed By: #### L 500.2500, L100.0100 ####[facility] [address] [place], [address] MCV (RBC) [Entitic vol] 90.3 fL Normal 81-99 [facility] Comment on above: Performed By: #### L 500.2500, L100.0100 ####[facility] [address] [place], [address] Monocytes/100 WBC (Bld) 5.0 % Normal 0-10 [facility] Comment on above: Performed By: #### L 500.2500, L100.0100 ####[facility] [address] [place], [address] Neutrophils/100 WBC (Bld) 77.7 % High 47-70 [facility] Comment on above: Performed By: #### L 500.2500, L100.0100 ####[facility] [address] [place], [address] Nucleated RBC (Bld) [#/Vol] 0 10*3/uL Normal 0-5 [facility] Comment on above: Performed By: #### L 500.2500, L100.0100 ####[facility] [address] [place], [address] Platelet mean volume (Bld) [Entitic vol] 10.7 fL Normal 6.2-12.0 [facility] Comment on above: Performed By: #### L 500.2500, L100.0100 ####[facility] [address] [place], [address] Platelets (Bld) [#/Vol] 249 10*3/uL Normal 150-450 [facility] Comment on above: Performed By: #### L 500.2500, L100.0100 ####[facility] [address] [place], [address] RBC (Bld) [#/Vol] 2.69 10*6/uL Low 4.2-5.4 [facility] Comment on above: Performed By: #### L 500.2500, L100.0100 ####[facility] [address] [place], [address] RDW SD 48.0 fl High 35.1-43.9 [facility] Comment on above: Performed By: #### L 500.2500, L100.0100 ####[facility] [address] [place], [address] WBC (Bld) [#/Vol] 13.3 10*3/uL High 4.4-11.0 [facility] Comment on above: Performed By: #### L 500.2500, L100.0100 ####[facility] [address] [place], [address] Basic Metabolic Profile (BMP )on 07-09-2025 BUN/CRE 16.1 RATIO Normal 10-20 [facility] Comment on above: Performed By: #### L 500.2500, L100.0100 ####[facility] [address] [place], [address] Calcium [Mass/Vol] 8.4 mg/dL Normal 7.6-11.0 [facility] Comment on above: Performed By: #### L 500.2500, L100.0100 ####[facility] [address] [place], [address] Chloride [Moles/Vol] 105 mmol/L Normal 98-108 [facility] Comment on above: Performed By: #### L 500.2500, L100.0100 ####[facility] [address] [place], [address] CO2 [Moles/Vol] 23.3 mmol/L Normal 21.0-32.0 [facility] Comment on above: Performed By: #### L 500.2500, L100.0100 ####[facility] [address] [place], [address] Creatinine [Mass/Vol] 0.70 mg/dL Normal 0.70-1.20 [facility] Comment on above: Performed By: #### L 500.2500, L100.0100 ####[facility] [address] [place], [address] ECRCL 75.75 ml/min Normal 50-250 [facility] Comment on above: Performed By: #### L 500.2500, L100.0100 ####[facility] [address] [place], [address] GAP 9 Normal 5-15 [facility] Comment on above: Performed By: #### L 500.2500, L100.0100 ####[facility] [address] [place], [address] GFR/1.73 sq M.predicted among non-blacks MDRD (S/P/Bld) [Vol rate/Area] 97 mL/min/{1.73_m2} Normal >60 [facility] Comment on above: Result Comment: mL/m in/1.73m2 CKD-EPI Creatinine Equation (2020) Performed By: #### L 500.2500, L100.0100 ####[facility] [address] [place], [address] Glucose [Mass/Vol] 81 mg/dL Normal 70-99 [facility] Comment on above: Performed By: #### L 500.2500, L100.0100 ####[facility] [address] [place], [address] Potassium [Moles/Vol] 3.4 mmol/L Normal 3.3-5.1 [facility] Comment on above: Performed By: #### L 500.2500, L100.0100 ####[facility] [address] [place], [address] Sodium [Moles/Vol] 138 mmol/L Normal 133-145 [facility] Comment on above: Performed By: #### L 500.2500, L100.0100 ####[facility] [address] [place], [address] Urea nitrogen [Mass/Vol] 11 mg/dL Normal 4-19 [facility] Comment on above: Performed By: #### L 500.2500, L100.0100 ####[facility] [address] [place], [address] CBC W/Diff, Automatedon 10-2 Absolute Lymph 1.85 X10 3/uL Normal 0.83-4.51 [facility] Comment on above: Performed By: #### L 500.2500, L100.0100 #### [facility] [address] [place], [address] Absolute Neut 12.7 X10 3/uL High 2.0-7.7 [facility] Comment on above: Performed By: #### L 500.2500, L100.0100 #### [facility] [address] [place], [address] Basophils/100 WBC (Bld) 0.5 % Normal 0-1 [facility] Comment on above: Performed By: #### L 500.2500, L100.0100 #### [facility] [address] [place], [address] Eosinophils/100 WBC (Bld) 1.3 % Normal 0-5 [facility] Comment on above: Performed By: #### L 500.2500, L100.0100 #### [facility] [address] [place], [address] Erythrocyte distribution width (RBC) [Ratio] 14.9 % High 11.6-14.6 [facility] Comment on above: Performed By: #### L 500.2500, L100.0100 #### [facility] [address] [place], [address] Hematocrit (Bld) [Volume fraction] 25.0 % Low 37-47 [facility] Comment on above: Performed By: #### L 500.2500, L100.0100 #### [facility] [address] [place], [address] Hemoglobin (Bld) [Mass/Vol] 8.2 g/dL Low 12.0-15.0 [facility] Comment on above: Performed By: #### L 500.2500, L100.0100 #### [facility] [address] [place], [address] IG% 1.700 High 0.0-0.9 [facility] Comment on above: Result Comment: IG% - Immature Granulocytes (promyelocytes, myelocytes and metamyelocytes) > 1% indicates that a LEFT SHIFT is Present. Performed By: #### L 500.2500, L100.0100 #### [facility] [address] [place], [address] Lymphocytes/100 WBC (Bld) 11.6 % Low 19-41 [facility] Comment on above: Performed By: #### L 500.2500, L100.0100 #### [facility] [address] [place], [address] MCH (RBC) [Entitic mass] 29.9 pg Normal 27.0-32.0 [facility] Comment on above: Performed By: #### L 500.2500, L100.0100 #### [facility] [address] [place], [address] MCHC (RBC) [Mass/Vol] 32.8 g/dL Normal 32-36 [facility] Comment on above: Performed By: #### L 500.2500, L100.0100 #### [facility] [address] [place], [address] MCV (RBC) [Entitic vol] 91.2 fL Normal 81-99 [facility] Comment on above: Performed By: #### L 500.2500, L100.0100 #### [facility] [address] [place], [address] Monocytes/100 WBC (Bld) 5.2 % Normal 0-10 [facility] Comment on above: Performed By: #### L 500.2500, L100.0100 #### [facility] [address] [place], [address] Neutrophils/100 WBC (Bld) 79.7 % High 47-70 [facility] Comment on above: Performed By: #### L 500.2500, L100.0100 #### [facility] [address] [place], [address] Nucleated RBC (Bld) [#/Vol] 0 10*3/uL Normal 0-5 [facility] Comment on above: Performed By: #### L 500.2500, L100.0100 #### [facility] [address] [place], [address] Platelet mean volume (Bld) [Entitic vol] 10.5 fL Normal 6.2-12.0 [facility] Comment on above: Performed By: #### L 500.2500, L100.0100 #### [facility] [address] [place], [address] Platelets (Bld) [#/Vol] 230 10*3/uL Normal 150-450 [facility] Comment on above: Performed By: #### L 500.2500, L100.0100 #### [facility] [address] [place], [address] RBC (Bld) [#/Vol] 2.74 10*6/uL Low 4.2-5.4 [facility] Comment on above: Performed By: #### L 500.2500, L100.0100 #### [facility] [address] [place], [address] RDW SD 50.3 fl High 35.1-43.9 [facility] Comment on above: Performed By: #### L 500.2500, L100.0100 #### [facility] [address] [place], [address] WBC (Bld) [#/Vol] 15.9 10*3/uL High 4.4-11.0 [facility] Comment on above: Performed By: #### L 500.2500, L100.0100 #### [facility] [address] [place], [address] Abdomen/Pelvis W IV Cont ONL Adam 07-08-2025 Abdomen/Pelvis W IV Cont ONLY [facility] Imaging Services [address] [place], [place] [address] Abdomen/Pelvis W IV Cont ONLY MR#: [id number] Acct: [id number] Name: TOOTIE GOLDMAN Rep #: [id number] : 1960 F 65 From: Landy Tay MD PCP: Annette Romano, DIRECTOR OF EVENTS-C Status: REG ER Study: Abdomen/Pelvis W IV Cont ONLY Date of Exam: Exam# [id number] Ordering Dr: Natalie George MD PROCEDURE: ABDOMEN/PELVIS [...] 2.5 x 2.6 cm. Cholelithiasis. Reading Location: [facility] CC: FABIAN Romano; Dr. Natalie George MD Product Safety Tester: Signed Normal [facility] Basic Metabolic Profile (BMP )on 07-08-2025 BUN/CRE 13.3 RATIO Normal 07-04 [facility] Comment on above: Performed By: #### L 100.0100, L501.2450, L500.3400, L500.2500 #### [facility] [address] [place], [address] Calcium [Mass/Vol] 9.5 mg/dL Normal 7.6-11.0 [facility] Comment on above: Performed By: #### L 100.0100, L501.2450, L500.3400, L500.2500 #### [facility] [address] [place], [address] Chloride [Moles/Vol] 100 mmol/L Normal 98-108 [facility] Comment on above: Performed By: #### L 100.0100, L501.2450, L500.3400, L500.2500 #### [facility] [address] [place], [address] CO2 [Moles/Vol] 26.7 mmol/L Normal 21.0-32.0 [facility] Comment on above: Performed By: #### L 100.0100, L501.2450, L500.3400, L500.2500 #### [facility] [address] [place], [address] Creatinine [Mass/Vol] 0.72 mg/dL Normal 0.70-1.20 [facility] Comment on above: Performed By: #### L 100.0100, L501.2450, L500.3400, L500.2500 #### [facility] [address] [place], [address] ECRCL 73.66 ml/min Normal 50-250 [facility] Comment on above: Performed By: #### L 100.0100, L501.2450, L500.3400, L500.2500 #### [facility] [address] [place], [address] GAP 12 Normal 5-15 [facility] Comment on above: Performed By: #### L 100.0100, L501.2450, L500.3400, L500.2500 #### [facility] [address] [place], [address] GFR/1.73 sq M.predicted among non-blacks MDRD (S/P/Bld) [Vol rate/Area] 94 mL/min/{1.73_m2} Normal >60 [facility] Comment on above: Result Comment: mL/m in/1.73m2 CKD-EPI Creatinine Equation (2020) Performed By: #### L 100.0100, L501.2450, L500.3400, L500.2500 #### [facility] [address] [place], [address] Glucose [Mass/Vol] 109 mg/dL High 70-99 [facility] Comment on above: Performed By: #### L 100.0100, L501.2450, L500.3400, L500.2500 #### [facility] [address] [place], [address] Potassium [Moles/Vol] 3.7 mmol/L Normal 3.3-5.1 [facility] Comment on above: Performed By: #### L 100.0100, L501.2450, L500.3400, L500.2500 #### [facility] [address] [place], [address] Sodium [Moles/Vol] 139 mmol/L Normal 133-145 [facility] Comment on above: Performed By: #### L 100.0100, L501.2450, L500.3400, L500.2500 #### [facility] [address] [place], [address] Urea nitrogen [Mass/Vol] 10 mg/dL Normal 4-19 [facility] Comment on above: Performed By: #### L 100.0100, L501.2450, L500.3400, L500.2500 #### [facility] [address] [place], [address] CBC W/Diff, Automatedon 10-2 Absolute Lymph 2.30 X10 3/uL Normal 0.83-4.51 [facility] Comment on above: Performed By: #### L 100.0100, L501.2450, L500.3400, L500.2500 #### [facility] [address] [place], [address] Absolute Neut 16.1 X10 3/uL High 2.0-7.7 [facility] Comment on above: Performed By: #### L 100.0100, L501.2450, L500.3400, L500.2500 #### [facility] [address] [place], [address] Basophils/100 WBC (Bld) 0.4 % Normal 0-1 [facility] Comment on above: Performed By: #### L 100.0100, L501.2450, L500.3400, L500.2500 #### [facility] [address] [place], [address] Eosinophils/100 WBC (Bld) 0.8 % Normal 0-5 [facility] Comment on above: Performed By: #### L 100.0100, L501.2450, L500.3400, L500.2500 #### [facility] [address] [place], [address] Erythrocyte distribution width (RBC) [Ratio] 14.8 % High 11.6-14.6 [facility] Comment on above: Performed By: #### L 100.0100, L501.2450, L500.3400, L500.2500 #### [facility] [address] [place], [address] Hematocrit (Bld) [Volume fraction] 29.8 % Low 37-47 [facility] Comment on above: Performed By: #### L 100.0100, L501.2450, L500.3400, L500.2500 #### [facility] [address] [place], [address] Hemoglobin (Bld) [Mass/Vol] 9.9 g/dL Low 12.0-15.0 [facility] Comment on above: Performed By: #### L 100.0100, L501.2450, L500.3400, L500.2500 #### [facility] [address] [place], [address] IG% 2.800 High 0.0-0.9 [facility] Comment on above: Result Comment: IG% - Immature Granulocytes (promyelocytes, myelocytes and metamyelocytes) > 1% indicates that a LEFT SHIFT is Present. Performed By: #### L 100.0100, L501.2450, L500.3400, L500.2500 #### [facility] [address] [place], [address] Lymphocytes/100 WBC (Bld) 11.4 % Low 19-41 [facility] Comment on above: Performed By: #### L 100.0100, L501.2450, L500.3400, L500.2500 #### [facility] [address] [place], [address] MCH (RBC) [Entitic mass] 29.6 pg Normal 27.0-32.0 [facility] Comment on above: Performed By: #### L 100.0100, L501.2450, L500.3400, L500.2500 #### [facility] [address] [place], [address] MCHC (RBC) [Mass/Vol] 33.2 g/dL Normal 32-36 [facility] Comment on above: Performed By: #### L 100.0100, L501.2450, L500.3400, L500.2500 #### [facility] [address] [place], [address] MCV (RBC) [Entitic vol] 89.0 fL Normal 81-99 [facility] Comment on above: Performed By: #### L 100.0100, L501.2450, L500.3400, L500.2500 #### [facility] [address] [place], [address] Monocytes/100 WBC (Bld) 5.3 % Normal 0-10 [facility] Comment on above: Performed By: #### L 100.0100, L501.2450, L500.3400, L500.2500 #### [facility] [address] [place], [address] Neutrophils/100 WBC (Bld) 79.3 % High 47-70 [facility] Comment on above: Performed By: #### L 100.0100, L501.2450, L500.3400, L500.2500 #### [facility] [address] [place], [address] Nucleated RBC (Bld) [#/Vol] 0 10*3/uL Normal 0-5 [facility] Comment on above: Performed By: #### L 100.0100, L501.2450, L500.3400, L500.2500 #### [facility] [address] [place], [address] Platelet mean volume (Bld) [Entitic vol] 10.3 fL Normal 6.2-12.0 [facility] Comment on above: Performed By: #### L 100.0100, L501.2450, L500.3400, L500.2500 #### [facility] [address] [place], [address] Platelets (Bld) [#/Vol] 287 10*3/uL Normal 150-450 [facility] Comment on above: Performed By: #### L 100.0100, L501.2450, L500.3400, L500.2500 #### [facility] [address] [place], [address] RBC (Bld) [#/Vol] 3.35 10*6/uL Low 4.2-5.4 [facility] Comment on above: Performed By: #### L 100.0100, L501.2450, L500.3400, L500.2500 #### [facility] [address] [place], [address] RDW SD 48.5 fl High 35.1-43.9 [facility] Comment on above: Performed By: #### L 100.0100, L501.2450, L500.3400, L500.2500 #### [facility] [address] [place], [address] WBC (Bld) [#/Vol] 20.2 10*3/uL High 4.4-11.0 [facility] Comment on above: Performed By: #### L 100.0100, L501.2450, L500.3400, L500.2500 #### [facility] [address] [place], [address] Consultation - Surgicalon Consultation - Surgical [facility] Medical Records Department [address] [place] [address] Consultation - Surgical 07/08/25 1459 MR#: [id number] Acct: [id number] Name: TOOTIE GOLDMAN Jaden Rep #: [id number] : 1960 65 From: Phan Smith MD PCP: Annette Romano, DIRECTOR OF EVENTS-C Status:ADM IN Location: MS3 EM074-3 Assessment Plan Assessment/Plan (1) Diverticulitis: PLAN: Plan [...] a 65 F who presented to the [facility] emergency department earlier today with [...] readily accessible by CT-guided drainage. [facility] Medical History High cholesterol Hypertension Home Medications [...] 79.3 H, Lymph % (Auto) 11.4 L, Roosevelt % (Auto) 5.3, Eos % (Auto) 0.8, [...] Sl. Cloudy, Urine pH 7.0, Ur Specific [place] 1.005, Urine Protein Negative, Urine Glucose (UA) [...] cm. Cholel (more content not included)... Normal [facility] Emergency Department Summary on 07-08-2025 Emergency Department Summary [facility] Medical Records Department [address] [place] [address] Emergency Department Summary 07/08/25 MR#: [id number] Acct: [id number] Name: TOOTIE GOLDMAN Rep #: [id number] : 1960 65 From: Natalie George MD PCP: Annette Romano DIRECTOR OF EVENTS-C Status:ADM IN [facility] History of Present Illness Chief Complaint: [...] she is urinating she is only dribbling. [facility] Medical History High cholesterol Hypertension Home Medications [...] Patient and (more content not included)... Normal [facility] H AND P Exam - Hospitaliston 07-08-2025 H&P Exam - Hospitalist [facility] Medical Records Department [address] [place] [address] H P Exam - Hospitalist 07/08/25 1450 MR#: [id number] Acct: [id number] Name: TOOTIE GOLDMAN Rep #: [id number] : 1960 65 From: Fransisco Hernandez DO PCP: Annette Romano, DIRECTOR OF EVENTS-C Status:ADM IN Location: [facility] IO752-5 HPI - General General Date of Admission: 07/08/25 Date of Service: 07/08/25 Chief Complaint: Abdominal pain HPI Narrative TOOTIE GOLDMAN, is a 65 F who presents with abdominal pain. This is a 65-year-old female with a history of hypertension presents with 10 days of not feeling well. Has had decreased appetite, increased abdominal pressure in the suprapubic region. [place] that she was having urinary tract infection [...] accessible via IR. [ ] [facility] Medical History High cholesterol Hypertension Home Medications [...] 79.3 H, Lymph % (Auto) 11.4 L, Roosevelt % (Auto) 5.3, Eos % (Auto) 0.8, [...] Sl. Cloudy, Urine pH 7.0, Ur Specific [place] 1.005, Urine Protein Negative, Urine Glucose (UA) Nor (more content not included)... Normal [facility] Lipaseon 07-08-2025 Lipase [Catalytic activity/Vol] 18 U/L Normal 13-75 [facility] Comment on above: Result Comment: Miguel velazquez note: LIPASE revised reference range effective 22. New Lipase methodology. Expected to produce lower values than the previous assay method. NEW Reference Range: 13 - 75 U/L Performed By: #### L 100.0100, L501.2450, L500.3400, L500.2500 #### [facility] [address] [place], [address] Liver Profileon 07-08-2025 Albumin [Mass/Vol] 3.6 g/dL Normal 3.4-4.8 [facility] Comment on above: Performed By: #### L 100.0100, L501.2450, L500.3400, L500.2500 #### [facility] [address] [place], [address] ALK PHOS 197 U/L High 35-104 [facility] Comment on above: Performed By: #### L 100.0100, L501.2450, L500.3400, L500.2500 #### [facility] [address] [place], [address] ALT [Catalytic activity/Vol] 62 U/L High <=34 [facility] Comment on above: Performed By: #### L 100.0100, L501.2450, L500.3400, L500.2500 #### [facility] [address] [place], [address] AST [Catalytic activity/Vol] 44 U/L High <=31 [facility] Comment on above: Performed By: #### L 100.0100, L501.2450, L500.3400, L500.2500 #### [facility] [address] [place], [address] Bilirubin [Mass/Vol] 1.73 mg/dL High 0.00-1.30 [facility] Comment on above: Performed By: #### L 100.0100, L501.2450, L500.3400, L500.2500 #### [facility] [address] [place], [address] Bilirubin.direct [Mass/Vol] 1.09 mg/dL High 0.00-0.30 [facility] Comment on above: Performed By: #### L 100.0100, L501.2450, L500.3400, L500.2500 #### [facility] [address] [place], [address] Globulin (S) [Mass/Vol] 4.1 g/dL Normal 2.2-4.2 [facility] Comment on above: Performed By: #### L 100.0100, L501.2450, L500.3400, L500.2500 #### [facility] [address] [place], [address] T PROT 7.8 g/dL Normal 5.9-8.4 [facility] Comment on above: Performed By: #### L 100.0100, L501.2450, L500.3400, L500.2500 #### [facility] [address] [place], [address] Urinalysis, Completeon 07-08 RBC 0-5 SEEN Normal 0-5 [facility] Comment on above: Order Comment: CLEAN CATCH Performed By: #### L 400.0001 #### [facility] [address] [place], [address] WBC 0-5 SEEN Normal 0-5 [facility] Comment on above: Order Comment: CLEAN CATCH Performed By: #### L 400.0001 #### [facility] [address] [place], [address] EPI,SQUAMOUS 0-5 SEEN Normal 5-10 [facility] Comment on above: Order Comment: CLEAN CATCH Performed By: #### L 400.0001 #### [facility] [address] [place], [address] BACTERIA 0 SEEN Normal None Seen [facility] Comment on above: Order Comment: CLEAN CATCH Performed By: #### L 400.0001 #### [facility] [address] [place], [address] Mucus Ql (Urine sed) 0 SEEN Normal [facility] Comment on above: Order Comment: CLEAN CATCH Performed By: #### L 400.0001 #### [facility] [address] [place], [address] Final Surgical Pathology Rep sarah 11-13-2023 Final Surgical Pathology Report . Pathology Reports Accession: Collected Date/Time: Received Date/Time: Pathologist: [id number] 11/11/2023 09:25 EST 11/12/2023 14:15 EST DIVINE LOO MD Final Surgical Pathology Report DIAGNOSIS: A. RIGHT COLON POLYP: - TUBULAR ADENOMA B. COLON/RECTUM, 5 CM, POLYP: - HYPERPLASTIC POLYP COMMENT: [facility] - [id number] CLINICAL INFORMATION: SCREENING COLONOSCOPY SPECIMEN: A RIGHT COLON POLYP B COLON BX @ 5 CM GROSS DESCRIPTION: All parts labelled with patient name and [id number] A. Received in formalin labeled right colon is 1 harris-brown tissue fragment measuring 0.4 x 0.3 cm. TS-1 B. Received in formalin labeled 5 cm is 1 harris-brown tissue fragment measuring 0.2 cm. Fecal debris also identified. TS-1 Stacey Alexander, Grossing Care Transitions Manager/ Dr. Mark Alarcon, Pathologist Dictated by Stacey Alexander MICROSCOPIC DESCRIPTION: The microscopic examination is performed, except in the case of Gross Only. Electronically Signed by Pathology Report verified by [facility] DIVINE OLO Sign out Date: 11/13/2023 11:35 Performing Lab: [facility], [address] [place] [address] [facility] Pathology Dept Disclaimer If ancillary studies were utilized, the following Laboratory Developed Test (LDT) disclaimer will apply: Under CLIA requirements, [facility] is qualified to perform high complexity testing. For all ancillary stains, positive and negative controls stain appropriately. Performance characteristics of immunohistochemical and chromogenic in-situ hybridization tests have been determined by [facility]. These tests are used for clinical purposes, They should not be regarded as investigational or for research. Normal [facility] ([place]) Encounters Encounter Date Encounter Type Care Provider Facility Start: 07-19-2025 End: 07-19-2025 ambulatory Annette Romano NP Facility:[facility] Start: 07-15-2025 ambulatory Annette Romano DIRECTOR OF EVENTS Fa cility:[facility] Start: 07-08-[address] [facility] Facility:[facility] Start: 07-08-2025 End: 07-10-2025 Evaluation and management of inpatient [facility] Facility:[facility] Start: 11-11-2023 End: 11-11-2023 [facility] Start: 11-04-2023 End: 11-04-2023 [facility] Payers Date Payer Category Payer Self-pay 2025 Unknown [id number] Unknown [id number] .. [id number] Unknown [id number] Unknown [id number] ..[id number] Unknown [id number] .16.8 [id number] Unknown [id number] 2.16.8 [id number] Unknown [id number] 2.16.8 [id number] Unknown [id number] 2.16.8 [id number] Unknown [id number] 2.16.8 [id number] Unknown [id number] 2.16.8 [id number] Discharge summary note 07-10-2025 Note Date & Type Note Facility 07-10-2025 Note [facility] Medical Records Department [address] [place] [address] Discharge Summary 07/10/25 1400 MR#: [id number] Acct: [id number] Name: TOOTIE GOLDMAN Rep #: [id number] : 1960 65 From: Fransisco Hernandez DO PCP: FABIAN Hudson Status:ADM IN Location: [facility] PN448-6 Providers Date of Admission: 07/08/25 Primary Care [...] 77.7 H, Lymph % (Auto) 13.8 L, Roosevelt % (Auto) 5.0, Eos % (Auto) 1.6, [...] Surgery] - Within 2 Weeks Annette Romano DIRECTOR OF EVENTS, DIRECTOR OF EVENTS-C [Primary Care Provider, Medical] Disposition Disposition (needs filled in before D/C Order can be placed): Home, Self Care Charges/Coding Visit Charges Inpatient E M: 28850 Disch Hosp 07/10/25 1407 Cosigner Signature (if applicable): CC: DIRECTOR OF EVENTS-C Annette Romano; Dr. Fransisco Hernandez DO Signed [facility] Summary Purpose Family History No Family History Records FoundNo Family History Records FoundNo Family History Records Found Advance Directives No Advanced Directives Records FoundNo Advanced Directives Records FoundNo Advanced Directives Records Found Additional Source Comments INFORMATION SOURCE (unrecogn ized section and content) DATE CREATED AUTHOR 11/15/2023 [facility] DATE CREATED AUTHOR AUTHOR'S ORGANIZ ATION 11/15/2023 [facility] ([place]) DATE CREATED AUTHOR AUTHOR'S ORGANIZ ATION 07/21/2025 [facility] FOR RECORDS PERTAINING TO PATIENTS WHO [...] BE BASED ON THE PRIMARY CLINICAL RECORDS. [facility]. provides no warranty or guarantee of the accuracy or completeness of information in this document.
[2025-07-25 00:42] LABS: Immature Reticulocyte Fraction 9.10 % (3.00-15.90); Platelet Count 247 K/mm3 (150-450); Reticulocyte Count 1.05 % (0.5-1.5)
--- NOTE | 2025-07-25 00:58 | PCM.HOSP.N ---
Sepsis Attestation Sepsis Alert: Yes Sepsis Attestation: Agree w/Sepsis Date exam was performed: 07/25/25 Time exam was performed: 12:33 Possible Source of Sepsis: GI tract/intra-abdominal Sepsis Organ Dysfunction Criteria Present: SBP < 90 mmHg or MAP < 65 mmHg Fluid Resuscitation Fluid resuscitation indicated?: Yes Fluid Resuscitation ordered: 30 ml/kg fluid bolus ordered Amount of fluid ordered: 2,000 Sepsis Note Date exam was performed: 07/25/25 Time exam was performed: 01:18 Sepsis Attestation: Sepsis re-evaluation was performed Response to fluids: Non Fluid responsive hypotension and Vasopressors started
[2025-07-25 01:14] LABS: Ferritin 985 ng/mL (22-378); Iron 17 ug/dL (50-170); Iron Binding Capacity,Unsat 178 ug/dL (228-428)
[2025-07-25] MEDS: Lactated Ringers 1,000 ML 75 ML IV ×2 (01:19→13:39)
[2025-07-25 01:23] LABS: Prothrombin Time (Protime)PT. 15.9 SECONDS (11.7-14.9)
[2025-07-25 01:24] LABS: Partial Thromboplast Time 34.1 Seconds (24.1-36.2)
[2025-07-25 01:25] LABS: Iron Binding Capacity,Total 195 ug/dL (250-450)
[2025-07-25] MEDS: Norepinephrine 8 MG in 0.9% Normal Saline (250mL Bag) 242 ML 9.4 MG CONT INF (01:30)
[2025-07-25] MEDS: Vancomycin 125 MG/5 ML Susp PO.SYRINGE PO ×5 (01:34→23:14)
[2025-07-25 04:46] LABS: Hematocrit 25.5 % (37-47); Hemoglobin 8.8 g/dL (12.0-15.0); Immature Granulocytes Count 0.070 X10^3/uL (0.0-0.0); Mean Corp Hgb Conc 34.5 g/dL (32-36); Mean Corpuscular Volume 87.3 fL (81-99); Mean Platelet Vol. 10.1 fl (6.2-12.0); NRBC Flagged by Analyzer 0 % (0-5); Platelet Count 238 K/mm3 (150-450); RBC Distribution Width CV 14.1 % (11.6-14.6); RBC Distribution Width SD 45.4 fl (35.1-43.9); Red Blood Count 2.92 M/mm3 (4.2-5.4); White Blood Count 14.5 K/mm3 (4.4-11.0)
[2025-07-25 04:50] LABS: Prothrombin Time (Protime)PT. 15.5 SECONDS (11.7-14.9)
[2025-07-25 05:04] LABS: AST(SGOT) 17 U/L (<=31); Alanine Aminotransfer ALT/SGPT 14 U/L (<=34); Albumin, Serum 3.2 g/dL (3.4-4.8); Alkaline Phosphatase 70 U/L (35-104); Anion Gap 13 (5-15); BUN 12 mg/dL (4-19); BUN/Creat Ratio 14.8 RATIO (10-20); Calcium,Total 8.4 mg/dL (7.6-11.0); Carbon Dioxide 16.9 mmol/L (21.0-32.0); Chloride 104 mmol/L (98-108); Estimated Creatinine Clearance 62.92 ml/min (50-250); Globulin 2.7 g/dL (2.2-4.2); Glucose 123 mg/dL (70-99); Magnesium 1.7 mg/dL (1.5-2.2); Potassium 3.4 mmol/L (3.3-5.1)
[2025-07-25 05:11] LABS: CORTISOL AM 15.30 ug/dL (6.02-18.40)
[2025-07-25] MEDS: Piperacil/Tazobactam 3.375 GM in 0.9% Normal Saline (50mL MB+) 50 ML IV ×3 (05:52→20:59)
[2025-07-25] MEDS: 0.9% Saline Lock 10 ML Syringe IV ×2 (07:01→13:39)
--- NOTE | 2025-07-25 07:42 | EX.PCM.CONCC ---
Assessment & Plan Assessment/Plan (1) Shock: (2) Acute hyponatremia: (3) Sepsis: PLAN: Plan RECOMMENDATIONS: 1. Continue empiric antimicrobials, pending infectious workup. 2. Awaiting results of C. difficile workup. 3. Continue Levophed to maintain a mean arterial pressure at or above 65 mmHg. 4. Continue scheduled midodrine 3 times daily. 5. Continue Lovenox for DVT prophylaxis. IMPRESSIONS: 1. Multifactorial shock Most likely secondary to sepsis secondary to diverticulitis with abscess, coupled with hypovolemia in the setting of diarrhea. C. difficile colitis is certainly a possibility. Workup is currently underway. In the interim, continue empiric antimicrobials, pending infectious workup. The patient has been adequately volume resuscitated from a sepsis perspective. Therefore, we will continue Levophed in an attempt to maintain a mean arterial pressure at or above 65 mmHg. General surgery is following, but does not feel that any form of surgical intervention is indicated at this time. 2. Hypovolemic hyponatremia Resolved with fluid resuscitation. Continue supportive care as noted above. 3. Recent diarrheal illness/anemia/hypertension/hyperlipidemia Complicates care, management, recovery and prognosis. Agree with workup for C. difficile colitis. Continue to hold home antihypertensives. TIME: 35 minutes of critical care time, independent of procedures, was spent addressing the patient's multifactorial shock, hyponatremia, review of all data and collaboration with the care team. HPI Consult Data Date of Consult: 07/25/25 HPI Narrative Reason for Consultation: Septic shock HPI Narrative: The patient is a 65-year-old female, with a history as outlined below, who presented to the emergency department on July 24 with complaints of nausea, vomiting and diarrhea along with associated abdominal pain. The patient had previously been admitted to the hospital for several days at the end of June 2025 with a diverticular abscess. The patient was ultimately medically managed with antimicrobial therapy, without surgical intervention. She was placed on Cipro and Flagyl at the time of her discharge. The patient then followed up with general surgery last week and was noted to be slowly improving. The patient's medical history is also significant for anemia, hypertension and hyperlipidemia. On presentation to the emergency department, the patient was noted to have a temperature of 100.1 ?F. She was otherwise hemodynamically stable at presentation and maintaining appropriate oxygen saturations on room air. Laboratory evaluation revealed a white blood cell count of 18,000 with a hemoglobin of 9.8 g/dL and platelet count of 250,000. Chemistry profile was notable for a sodium of 130 with a chloride of 97 and creatinine of 0.8. Lactate was within normal limits. Urine analysis was positive for leukocyte esterase and 3+ urine bacteria. CT abdomen/pelvis demonstrated colonic mural thickening suggesting colitis along with the previously noted air-fluid loculation. In the emergency department, the patient developed fluid refractory hypotension and was ultimately placed on Levophed. Empiric broad-spectrum antimicrobials were initiated. The patient was admitted to the medical intensive care unit for further management. The patient was seen in consultation by general surgery, who do not feel that any form of surgical intervention was warranted. Workup for C. difficile colitis is currently underway. [facility] Medical History Anemia Diverticulitis Colonic diverticular abscess High cholesterol Hypertension Home Medications ?Medication ?Instructions ?Recorded ?Last Taken ?Type atorvastatin 40 mg tablet (Lipitor) 40 mg PO DAILY high cholesterol 07/08/25 07/04/25 22:00 History 40 mg telmisartan 40 mg tablet (Micardis) 40 mg PO DAILY HTN 07/08/25 07/08/25 10:00 History 40 mg oxycodone 5 mg tablet 5 mg PO Q6H PRN pain (scale score 07/10/25 Unknown Rx 7-10) 3 days #12 tabs Allergy/AdvReac Type Severity Reaction Status Date / Time No Known Allergies Allergy Verified 07/24/25 19:22 Family History Mother Hypertension High cholesterol CVA (cerebral vascular accident) Surgical History No history of previous surgery Social History (Updated 07/25/25 @ 00:[address] Nandini Boothe DO) household members: spouse housing: house Smoking Status: Never smoker alcohol intake: never substance use type: does not use mart/voodoo: [employer] ROS ROS Narrative 10 systems were reviewed with pertinent positives as noted in the HPI above. Physical Exam Const alert, oriented x3 and no apparent distress General Appearance: cooperative HEENT normocephalic and head/scalp atraumatic Eyes PERRL, EOMs intact bilaterally and conjunctivae normal Neck supple General: trachea midline Chest inspection of chest normal Resp normal respiratory effort Auscultation: Negative for rales, rhonchi or wheezes Cardio regular rate and regular rhythm GI soft to palpation Palpation: tender; Negative for guarding or rigid Extremity no clubbing, cyanosis or edema Skin no rashes or lesions noted Neuro CN's II-XII intact bilaterally, moves all extremities and no focal motor deficits Psych cooperative and affect normal Lab / Micro Data 07/25/25 04:20 07/25/25 04:20 Labs: Laboratory Results - last 24 hr 07/24/25 19:52: WBC 18.4 H, RBC 3.30 L, Hgb 9.8 L, Hct 28.7 L, MCV 87.0, MCH 29.7, MCHC 34.1, RDW Std Deviation 44.5 H, RDW Coeff of Crescencio 14.0, Plt Count 250, MPV 10.2, Immature Gran % (Auto) 0.400, Neut % (Auto) 89.3 H, Lymph % (Auto) 5.5 L, [place] % (Auto) 4.1, Eos % (Auto) 0.3, Baso % (Auto) 0.4, Absolute Neuts (auto) 16.5 H, Absolute Lymphs (auto) 1.01, Nucleated RBC % 0, Retic Count 1.05, Immature Retic Fraction 9.10, Retic Hgb Equivalent 31.3, Sodium 130 L, Potassium 4.0, Chloride 97 L, Carbon Dioxide 21.2, Anion Gap 12, BUN 19, Creatinine 0.88, Estim Creat Clear Calc 55.77, Est GFR (MDRD) Non-Af 74, BUN/Creatinine Ratio 21.6 H, Glucose 120 H, Calcium 9.0, Iron 17 L, TIBC 195 L, Iron Saturation 8.7 L, Unsaturated IBC 178 L, Ferritin 985 H, Total Bilirubin 1.19, AST 20, ALT 17, Alkaline Phosphatase 97, Total Protein 7.2, Albumin 3.8, Globulin 3.4, Albumin/Globulin Ratio 1.1, Lipase 23 07/24/25 20:43: Urine Color Yellow, Urine Clarity Sl. Cloudy, Urine pH 6.0, Ur Specific [place] 1.020, Urine Protein 30 H, Urine Glucose (UA) Normal, Urine Ketones Negative, Urine Occult Blood Negative, Urine Nitrite Negative, Urine Bilirubin Negative, Urine Urobilinogen Normal, Ur Leukocyte Esterase 25 H, Urine RBC 0 SEEN, Urine WBC 0-5 SEEN, Ur Squamous Epith Cells 5-10 SEEN, Ur Transition Epith Cell 0-5 SEEN, Urine Bacteria 3+, Hyaline Casts 0-5 SEEN, Urine Mucus 0 SEEN 07/24/25 23:35: Lactic Acid < 1.0 07/25/25 00:28: PT 15.9 H, INR 1.3, APTT 34.1 07/25/25 04:20: WBC 14.5 H, RBC 2.92 L, Hgb 8.8 L, Hct 25.5 L, MCV 87.3, MCH 30.1, MCHC 34.5, RDW Std Deviation 45.4 H, RDW Coeff of Crescencio 14.1, Plt Count 238, MPV 10.1, Immature Gran % (Auto) 0.500, Neut % (Auto) 83.1 H, Lymph % (Auto) 9.2 L, [place] % (Auto) 6.6, Eos % (Auto) 0.1, Baso % (Auto) 0.5, Absolute Neuts (auto) 12.0 H, Absolute Lymphs (auto) 1.33, Nucleated RBC % 0, PT 15.5 H, INR 1.2, Sodium 134, Potassium 3.4, Chloride 104, Carbon Dioxide 16.9 L, Anion Gap 13, BUN 12, Creatinine 0.78, Estim Creat Clear Calc 62.92, Est GFR (MDRD) Non-Af 84, BUN/Creatinine Ratio 14.8, Glucose 123 H, Lactic Acid < 1.0, Calcium 8.4, Phosphorus 2.8, Magnesium 1.7, Total Bilirubin 0.85, AST 17, ALT 14, Alkaline Phosphatase 70, Total Protein 5.8 L, Albumin 3.2 L, Globulin 2.7, Albumin/Globulin Ratio 1.2, Cortisol AM Sample 15.30 Imaging Radiology Impression Abdomen/Pelvis CT 07/24/25 20:02 IMPRESSION: Stable colonic diverticulosis with sigmoid diverticulitis associated with related focal mural ill definition and mary-colic partly encapsulated air loculi and fluid densities currently shows more tendency for loculation forming a large pocket as detailed. Also size progression of the pericolic collection yet the tendency for loculation and resolution of the rest of the non encapsulated air loculi and fluid densities keeping with localization and ongoing improvement. Diffuse rectal and colonic mural thickening suggesting colitis, predominantly involving the left side of the colon with fluid and gaseous distension of the right side of the colon. Stable rest of the study. Reading [facility] [address] Charges/Coding Procedures Hospitalists Procedures: 61327 Critical Care 1st Hr
--- NOTE | 2025-07-25 12:37 | CON.PCM.SX_ITS ---
Assessment & Plan Assessment/Plan (1) Colonic diverticular abscess: PLAN: Plan The patient is a 65-year-old female with complicated sigmoid diverticulitis with abscess who now presents for abdominal pain and diarrhea. Certainly concern for a C. difficile infection is of high concern given the recent antibiotic use and diarrhea along with rectal thickening on CT scan. Otherwise would recommend continued supportive measures including antibiotics and fluids as well as pressors. Would hold off on any surgical intervention at this given point. Will continue to follow closely and advise accordingly HPI Consult Data Date of Consult: 07/25/25 HPI Narrative Reason for Consultation: Abdominal pain/diverticulitis HPI Narrative: TOOTIE GOLDMAN, is a 65 F who presented last night to the emergency department at [facility] with complaints of abdominal pain, nausea, vomiting, and diarrhea. Patient was recently hospitalized for diverticulitis of the sigmoid colon with diverticular abscess. There were 2 abscesses at that time but these did not seem to be amenable to percutaneous drainage. Patient was placed on antibiotics and responded quickly to IV antibiotic therapy. Patient followed up with me about a week after hospitalization and a repeat CT scan was performed. This showed stability to the abscesses but the degree of inflammation around the colon had actually decreased. Her white count was normal and she was feeling very good. At that point she had completed her oral antibiotic course. Yesterday she woke up feeling ill. She states the day prior she was feeling at her best. Yesterday she had a brief episode of abdominal pain which then resolved. Her stated that he she was having some subjective chills along with nausea and vomiting. She was also having quite a bit of diarrhea. She states that she probably had 10 episodes of diarrhea yesterday. She presented to the emergency department for further evaluation. She was seen evaluate by the ER staff. She had a Tmax of 100.1. She was initially somewhat hypotensive but initially responded to fluids. CT scan showed some resolution to 1 area of her abscess well another area seems to have some locules of contained air all within the mesentery. She was subsidy admitted. Antibiotics were restarted. She was checked for C. difficile which is certainly strong possibility especially given the fact that the CT scan also indicated some rectal thickening as well. She was placed on low-dose pressors overnight and was admitted to the ICU. She remains on low-dose pressors as of this morning. [facility] Medical History Anemia Diverticulitis Colonic diverticular abscess High cholesterol Hypertension Home Medications ?Medication ?Instructions ?Recorded ?Last Taken ?Type atorvastatin 40 mg tablet (Lipitor) 40 mg PO DAILY hig h cholesterol 07/08/25 07/04/25 22:00 History 40 mg telmisartan 40 mg tablet (Micardis) 40 mg PO DAILY HTN 07/08/25 07/08/25 10:00 History 40 mg oxycodone 5 mg tablet 5 mg PO Q6H PRN pain (scale score 07/10/25 Unknown Rx 7-10) 3 days #12 tabs Allergy/AdvReac Type Severity Reaction Status Date / Time No Known Allergies Allergy Verified 07/24/25 19:22 Family History Mother Hypertension High cholesterol CVA (cerebral vascular accident) Surgical History No history of previous surgery Social History (Updated 07/25/25 @ 00:[address] Nandini Boothe DO) household members: spouse housing: house Smoking Status: Never smoker alcohol intake: never substance use type: does not use mart/congregation: [facility] Physical Exam Narrative She is alert and oriented x 3. She does not appear toxic in appearance Head is normocephalic and atraumatic. Pupils are equal round and reactive to light. Her abdomen is soft and somewhat distended. Mild diffuse tenderness to palpation. No significant rebound or guarding or other peritoneal signs Medical Records Data Attestation: I reviewed the patient's medical records Lab / Micro Data Attestation: I reviewed the patient's lab results. 07/25/25 04:20 07/25/25 04:20 Labs: Laboratory Results - last 24 hr 07/24/25 19:52: WBC 18.4 H, RBC 3.30 L, Hgb 9.8 L, Hct 28.7 L, MCV 87.0, MCH 29.7, MCHC 34.1, RDW Std Deviation 44.5 H, RDW Coeff of Crescencio 14.0, Plt Count 250, MPV 10.2, Immature Gran % (Auto) 0.400, Neut % (Auto) 89.3 H, Lymph % (Auto) 5.5 L, [place] % (Auto) 4.1, Eos % (Auto) 0.3, Baso % (Auto) 0.4, Absolute Neuts (auto) 16.5 H, Absolute Lymphs (auto) 1.01, Nucleated RBC % 0, Retic Count 1.05, Immature Retic Fraction 9.10, Retic Hgb Equivalent 31.3, Sodium 130 L, Potassium 4.0, Chloride 97 L, Carbon Dioxide 21.2, Anion Gap 12, BUN 19, Creatinine 0.88, Estim Creat Clear Calc 55.77, Est GFR (MDRD) Non-Af 74, BUN/Creatinine Ratio 21.6 H, Glucose 120 H, Calcium 9.0, Iron 17 L, TIBC 195 L, Iron Saturation 8.7 L , Unsaturated IBC 178 L, Ferritin 985 H, Total Bilirubin 1.19, AST 20, ALT 17, Alkaline Phosphatase 97, Total Protein 7.2, Albumin 3.8, Globulin 3.4, Albumin/Globulin Ratio 1.1, Lipase 23 07/24/25 20:43: Urine Color Yellow, Urine Clarity Sl. Cloudy, Urine pH 6.0, Ur Specific [place] 1.020, Urine Protein 30 H, Urine Glucose (UA) Normal, Urine Ketones Negative, Urine Occult Blood Negative, Urine Nitrite Negative, Urine Bilirubin Negative, Urine Urobilinogen Normal, Ur Leukocyte Esterase 25 H, Urine RBC 0 SEEN, Urine WBC 0-5 SEEN, Ur Squamous Epith Cells 5-10 SEEN, Ur Transition Epith Cell 0-5 SEEN, Urine Bacteria 3+, Hyaline Casts 0-5 SEEN, Urine Mucus 0 SEEN 07/24/25 23:35: Lactic Acid < 1.0 07/25/25 00:28: PT 15.9 H, INR 1.3, APTT 34.1 07/25/25 04:20: WBC 14.5 H, RBC 2.92 L, Hgb 8.8 L, Hct 25.5 L, MCV 87.3, MCH 30.1, MCHC 34.5, RDW Std Deviation 45.4 H, RDW Coeff of Crescencio 14.1, Plt Count 238, MPV 10.1, Immature Gran % (Auto) 0.500, Neut % (Auto) 83.1 H, Lymph % (Auto) 9.2 L, [place] % (Auto) 6.6, Eos % (Auto) 0.1, Baso % (Auto) 0.5, Absolute Neuts (auto) 12.0 H, Absolute Lymphs (auto) 1.33, Nucleated RBC % 0, PT 15.5 H, INR 1.2, Sodium 134, Potassium 3.4, Chloride 104, Carbon Dioxide 16.9 L, Anion Gap 13, BUN 12, Creatinine 0.78, Estim Creat Clear Calc 62.92, Est GFR (MDRD) Non-Af 84, BUN/Creatinine Ratio 14.8, Glucose 123 H, Lactic Acid < 1.0, Calcium 8.4, Phosphorus 2.8, Magnesium 1.7, Total Bilirubin 0.85, AST 17, ALT 14, Alkaline Phosphatase 70, Total Protein 5.8 L, Albumin 3.2 L, Globulin 2.7, Albumin/Globulin Ratio 1.2, Cortisol AM Sample 15.30 Imaging Radiology Impression Abdomen/Pelvis CT 07/24/25 20:02 IMPRESSION: Stable colonic diverticulosis with sigmoid diverticulitis associated with related focal mural ill definition and mary-colic partly encapsulated air loculi and fluid densities currently shows more tendency for loculation forming a large pocket as detailed. Also size progression of the pericolic collection yet the tendency for loculation and resolution of the rest of the non encapsulated air loculi and fluid densities keeping with localization and ongoing improvement. Diffuse rectal and colonic mural thickening suggesting colitis, predominantly involving the left side of the colon with fluid and gaseous distension of the right side of the colon. Stable rest of the study. Reading Location[facility]
[2025-07-26] VITALS (8 sets, daily range): BP systolic 96–130; BP diastolic 46–60; PULSE 58–70; RESP 16–21; TEMP 36.5–36.8; O2SAT 95–98; BMI 23.6
[2025-07-26] MEDS: 0.9% Saline Lock 10 ML Syringe IV ×3 (02:53→18:06)
[2025-07-26] MEDS: Lactated Ringers 1,000 ML 75 ML IV (02:53)
[2025-07-26] MEDS: Vancomycin 125 MG/5 ML Susp PO.SYRINGE PO ×4 (06:17→22:58)
[2025-07-26] MEDS: Piperacil/Tazobactam 3.375 GM in 0.9% Normal Saline (50mL MB+) 50 ML IV ×3 (06:17→22:46)
--- NOTE | 2025-07-26 07:21 | PCM.PN.INT ---
Assessment & Plan Assessment/Plan (1) Shock: (2) Acute hyponatremia: (3) Sepsis: PLAN: Plan RECOMMENDATIONS: 1. Continue empiric IV antimicrobials along with p.o. vancomycin secondary to C. difficile colitis. 2. Continue scheduled midodrine. 3. Continue appropriate DVT prophylaxis. 4. The patient is stable for transfer out of the ICU. Will sign off from a critical care perspective. IMPRESSIONS: 1. Multifactorial shock Resolved. Most likely secondary to sepsis secondary to diverticulitis with abscess and C. difficile colitis, coupled with hypovolemia in the setting of diarrhea. While the patient was volume resuscitated, she did require transient vasopressor support. The patient has since been weaned from Levophed and remains hemodynamically stable. Plan to continue IV antimicrobial therapy along with p.o. vancomycin. General surgery is following, but does not feel that any form of surgical intervention is indicated at this time. 2. Hypovolemic hyponatremia Resolved with fluid resuscitation. Continue supportive care as noted above. 3. Recent diarrheal illness/anemia/hypertension/hyperlipidemia Complicates care, management, recovery and prognosis. Continue to hold home antihypertensives. This note was generated with [employer] dictation software. It may contain incorrect words, spelling, and punctuation that were not noted in checking the note before signing. Subjective Subjective The patient was seen and examined at the bedside this morning. Events from the last 24 hours have been reviewed. The patient is currently afebrile, hemodynamically stable and maintaining appropriate oxygen saturations on room air. The patient was weaned off of Levophed completely yesterday morning. The patient was started on p.o. vancomycin after testing positive for C. difficile colitis. Objective Data Objective Data The patient's most recent lab work, culture data and imaging studies have all been personally reviewed. Vital Signs: Vital Signs Temp Pulse Resp BP Pulse Ox O2 Del Method 98.1 F 64 21 H 104/58 L 97 Room Air 07/26/25 06:30 07/26/25 06:30 07/26/25 06:30 07/26/25 06:30 07/26/25 06:30 07/26/25 06:30 Oxygen Delivery Method Room Air Weight: 137 lb 9.095 oz Body Mass Index (BMI) 23.6 Intake & Output: Intake and Output for Last 24 Hours 07/24/25 07/25/25 07/26/25 23:59 23:59 23:59 Intake Total 1000 / 1000 2383.65 / 2383.65 1042.5 / 1042.5 Balance 1000 / 1000 2383.65 / 2383.65 1042.5 / 1042.5 Lab / Micro Data Attestation: I reviewed the patient's lab results. 07/25/25 04:20 07/25/25 04:20 Micro: Microbiology 07/25/25 12:55 Stool Enteric Bacteriology - Final 07/25/25 12:55 Stool C. difficile GDH Antigen & Toxins - Final 07/25/25 12:55 Stool Clostridioides difficile (PCR) - Final Physical Exam Const alert, oriented x3 and no apparent distress General Appearance: cooperative HEENT normocephalic and head/scalp atraumatic Eyes PERRL, EOMs intact bilaterally and conjunctivae normal Neck supple General: trachea midline Chest inspection of chest normal Resp normal respiratory effort Auscultation: Negative for rales, rhonchi or wheezes Cardio regular rate and regular rhythm GI soft to palpation Palpation: tender; Negative for guarding or rigid Extremity no clubbing, cyanosis or edema Skin no rashes or lesions noted Neuro CN's II-XII intact bilaterally, moves all extremities and no focal motor deficits Psych cooperative and affect normal Charges/Coding Visit Charges Inpatient E&M: 92828 Subs Hosp L2
--- NOTE | 2025-07-26 08:17 | PCM.PN.SRG ---
Subjective Subjective Patient evaluated resting comfortably in bed. She notes feeling much improved. She notes getting a good nights rest. She denies any nausea, vomiting, fever. She notes her abdomen is sore, however feeling much better than yesterday. She continues to note diarrhea. She states this is slowing down. She notes feeling thirsty. Objective Data Objective Data Vital Signs: Vital Signs Temp Pulse Resp BP Pulse Ox O2 Del Method 98.1 F 64 21 H 104/58 L 97 Room Air 07/26/25 06:30 07/26/25 06:30 07/26/25 06:30 07/26/25 06:30 07/26/25 06:30 07/26/25 06:30 Oxygen Delivery Method Room Air Weight: 137 lb 9.095 oz Body Mass Index (BMI) 23.6 Intake & Output: Intake and Output for Last 24 Hours 07/24/25 07/25/25 07/26/25 23:59 23:59 23:59 Intake Total 1000 / 1000 2383.65 / 2383.65 1042.5 / 1042.5 Balance 1000 / 1000 2383.65 / 2383.65 1042.5 / 1042.5 Lab / Micro Data 07/25/25 04:20 07/25/25 04:20 Micro: Microbiology 07/25/25 12:55 Stool Enteric Bacteriology - Final 07/25/25 12:55 Stool C. difficile GDH Antigen & Toxins - Final 07/25/25 12:55 Stool Clostridioides difficile (PCR) - Final Physical Exam GI GI Narrative: Abdomen- soft, mild generalized tenderness with palpation. No true pain. Assessment & Plan Assessment/Plan (1) Colonic diverticular abscess: (2) Diverticulitis: (3) Leukocytosis: (4) C. difficile colitis: PLAN: Plan I am following this patient in conjunction with Dr. Smith. I have discussed this patient with him and he will independently evaluate this patient. Labs pending Continue antibiotics and IV fluids Continue NPO diet at this time. Reevaluate tomorrow. May have some ice chips Patient stable to transfer out of ICU to regular med/surg floor Patient overall seems improved We will continue to monitor this patient Charges/Coding Visit Charges Inpatient E&M: 15974 Subs Hosp L2
[2025-07-26 09:39] LABS: Hematocrit 26.0 % (37-47); Hemoglobin 8.4 g/dL (12.0-15.0); Immature Granulocytes Count 0.050 X10^3/uL (0.0-0.0); Mean Corp Hgb Conc 32.3 g/dL (32-36); Mean Corpuscular Volume 90.3 fL (81-99); Mean Platelet Vol. 10.2 fl (6.2-12.0); NRBC Flagged by Analyzer 0 % (0-5); Platelet Count 221 K/mm3 (150-450); RBC Distribution Width CV 14.3 % (11.6-14.6); RBC Distribution Width SD 46.5 fl (35.1-43.9); Red Blood Count 2.88 M/mm3 (4.2-5.4); White Blood Count 7.9 K/mm3 (4.4-11.0)
--- NOTE | 2025-07-26 09:54 | PCM.PN.HOSP ---
Subjective Subjective Doing well, pain is improved. Right arm is a little bit swollen from the IV infiltration yesterday Objective Data Objective Data Vital Signs: Vital Signs Temp Pulse Resp BP Pulse Ox O2 Del Method 97.7 F L 65 18 116/58 L 98 Room Air 07/26/25 08:52 07/26/25 08:52 07/26/25 08:52 07/26/25 08:52 07/26/25 08:52 07/26/25 08:52 Oxygen Delivery Method Room Air Weight: 137 lb 9.095 oz Body Mass Index (BMI) 23.6 Intake & Output: Intake and Output for Last 24 Hours 07/25/25 07/26/25 07/27/25 03:59 03:59 03:59 Intake Total 2137.60 / 2142.30 2288.55 / 2288.55 Balance 2137.60 / 2142.30 2288.55 / 2288.55 Lab / Micro Data 07/25/25 04:20 07/25/25 04:20 Micro: Microbiology 07/25/25 12:55 Stool Enteric Bacteriology - Final 07/25/25 12:55 Stool C. difficile GDH Antigen & Toxins - Final 07/25/25 12:55 Stool Clostridioides difficile (PCR) - Final Physical Exam Narrative General: Alert, Oriented x3, Cooperative, No apparent distress HEENT: Atraumatic, PERRLA, EOMI, Normocephalic Oral: Moist Mucosa Neck: Supple, No JVD Lungs: Diminished, Normal air movement, No rhonchi, No wheeze, No rales Cardiovascular: Regular rate, Regular Rhythm, Normal S1, Normal S2, No murmurs Abdomen: Soft, mildly tender, Non-Distended, No Hepato-splenomegaly Extremities: No edema, Capillary Refill Less than 3 Seconds Skin: No rashes, No breakdown Musculoskeletal: No Tenderness to Palpation of Joints or Extremities Neurological: No focal neurological deficits, moves all extremities Psych/Mental Status: Normal Affect, Appropriate Assessment & Plan Assessment/Plan (1) Colonic diverticular abscess: (2) Diverticulitis: (3) Leukocytosis: (4) Acute hyponatremia: PLAN: Plan 1. Sepsis secondary to acute diverticulitis with abscess ? Remain n.p.o. ? Continue with broad-spectrum antibiotics ? No operative indication yet given her improvement we will continue to monitor ? Can transfer out of the ICU if she has been 24 hours without any pressors, and is unclear whether or not she is needed pressors as her right arm infiltrated and she was not receiving any and then when they did restart it in the other arm her systolics climb significantly high and I had to turn it off there for not quite sure she meets criteria for shock ? Hyponatremia resolved 2. Essential HTN/HLD ? Hold her blood pressure medications given her sepsis ? Monitor and make adjustments as necessary ? Since she is n.p.o. no need for the Lipitor at this time DVT: Lovenox Charges/Coding Visit Charges Inpatient E&M: 37905 Subs Hosp L2
[2025-07-26 10:24] LABS: Anion Gap 13 (5-15); BUN 13 mg/dL (4-19); BUN/Creat Ratio 20.5 RATIO (10-20); Calcium,Total 8.6 mg/dL (7.6-11.0); Carbon Dioxide 20.1 mmol/L (21.0-32.0); Chloride 106 mmol/L (98-108); Estimated Creatinine Clearance 80.46 ml/min (50-250); Glucose 67 mg/dL (70-99); Potassium 3.1 mmol/L (3.3-5.1)
[2025-07-26] MEDS: Potassium Chloride 10mEq/100mL 10 MEQ/100 ML IV.SOLN. 100 MEQ IV BOLUS ×4 (12:56→16:20)
[2025-07-26] MEDS: 0.9% Normal Saline (250mL Bag) 250 ML 15 ML IV (17:32)
[2025-07-26] MEDS: 0.9% Normal Saline (1000mL) 1,000 ML 75 ML IV ×2 (18:06→22:46)
[2025-07-27 05:23] VITALS: BMI 23.3
[2025-07-27 05:50] VITALS: BP 113/46; PULSE 73; RESP 18; TEMP 36.6; O2SAT 93
[2025-07-27] MEDS: 0.9% Saline Lock 10 ML Syringe IV (05:52)
[2025-07-27] MEDS: Piperacil/Tazobactam 3.375 GM in 0.9% Normal Saline (50mL MB+) 50 ML IV ×3 (05:53→22:56)
[2025-07-27] MEDS: Vancomycin 125 MG/5 ML Susp PO.SYRINGE PO ×4 (05:55→23:00)
[2025-07-27 07:28] LABS: Hematocrit 26.5 % (37-47); Hemoglobin 8.4 g/dL (12.0-15.0); Immature Granulocytes Count 0.060 X10^3/uL (0.0-0.0); Mean Corp Hgb Conc 31.7 g/dL (32-36); Mean Corpuscular Volume 91.4 fL (81-99); Mean Platelet Vol. 10.4 fl (6.2-12.0); NRBC Flagged by Analyzer 0 % (0-5); Platelet Count 213 K/mm3 (150-450); RBC Distribution Width CV 14.0 % (11.6-14.6); RBC Distribution Width SD 47.1 fl (35.1-43.9); Red Blood Count 2.90 M/mm3 (4.2-5.4); White Blood Count 8.1 K/mm3 (4.4-11.0)
[2025-07-27 07:56] LABS: Anion Gap 17 (5-15); BUN 12 mg/dL (4-19); BUN/Creat Ratio 19.0 RATIO (10-20); Calcium,Total 8.3 mg/dL (7.6-11.0); Carbon Dioxide 16.4 mmol/L (21.0-32.0); Chloride 106 mmol/L (98-108); Estimated Creatinine Clearance 75.50 ml/min (50-250); Glucose 58 mg/dL (70-99); Potassium 3.6 mmol/L (3.3-5.1)
--- NOTE | 2025-07-27 08:06 | PCM.PN.SRG ---
Subjective Subjective Patient evaluated resting comfortably in bed. She denies any nausea, vomiting overnight. She is tolerating a clear liquid diet well. She notes the diarrhea has slowed down. She notes her abdomen still feels generalized soreness. She denies any fever. She notes obtaining a shower this morning which helped with her mood. She voices recommendations on homegoing diet. Objective Data Objective Data Vital Signs: Vital Signs Temp Pulse Resp BP Pulse Ox O2 Del Method 97.8 F 73 18 113/46 L 93 Room Air 07/27/25 05:50 07/27/25 05:50 07/27/25 05:50 07/27/25 05:50 07/27/25 05:50 07/27/25 05:59 Oxygen Delivery Method Room Air Weight: 136 lb 0.403 oz Body Mass Index (BMI) 23.3 Intake & Output: Intake and Output for Last 24 Hours 07/25/25 07/26/25 07/27/25 23:59 23:59 23:59 Intake Total 2383.65 / 2383.65 2753.50 / 2753.50 742.5 / 742.5 Balance 2383.65 / 2383.65 2753.50 / 2753.50 742.5 / 742.5 Lab / Micro Data 07/27/25 06:38 07/27/25 06:38 Labs: Laboratory Results - last 24 hr 07/26/25 09:30: WBC 7.9, RBC 2.88 L, Hgb 8.4 L, Hct 26.0 L, MCV 90.3, MCH 29.2, MCHC 32.3 D, RDW Std Deviation 46.5 H, RDW Coeff of Crescencio 14.3, Plt Count 221, MPV 10.2, Immature Gran % (Auto) 0.600, Neut % (Auto) 66.2, Lymph % (Auto) 21.2, [place] % (Auto) 8.2, Eos % (Auto) 2.7, Baso % (Auto) 1.1 H, Absolute Neuts (auto) 5.2, Absolute Lymphs (auto) 1.67, Nucleated RBC % 0, Sodium 139, Potassium 3.1 L, Chloride 106, Carbon Dioxide 20.1 L, Anion Gap 13, BUN 13, Creatinine 0.61 L, Estim Creat Clear Calc 80.46, Est GFR (MDRD) Non-Af 100, BUN/Creatinine Ratio 20.5 H, Glucose 67 L, Calcium 8.6 07/27/25 06:38: WBC 8.1, RBC 2.90 L, Hgb 8.4 L, Hct 26.5 L, MCV 91.4, MCH 29.0, MCHC 31.7 L, RDW Std Deviation 47.1 H, RDW Coeff of Crescencio 14.0, Plt Count 213, MPV 10.4, Immature Gran % (Auto) 0.700, Neut % (Auto) 73.1 H, Lymph % (Auto) 17.1 L, [place] % (Auto) 6.1, Eos % (Auto) 2.0, Baso % (Auto) 1.0, Absolute Neuts (auto) 5.9, Absolute Lymphs (auto) 1.38, Nucleated RBC % 0, Sodium 139, Potassium 3.6, Chloride 106, Carbon Dioxide 16.4 L, Anion Gap 17 H, BUN 12, Creatinine 0.65 L, Estim Creat Clear Calc 75.50, Est GFR (MDRD) Non-Af 98, BUN/Creatinine Ratio 19.0, Glucose 58 L, Calcium 8.3 Micro: Microbiology 07/25/25 12:55 Stool Enteric Bacteriology - Final 07/25/25 12:55 Stool C. difficile GDH Antigen & Toxins - Final 07/25/25 12:55 Stool Clostridioides difficile (PCR) - Final Physical Exam GI GI Narrative: Abdomen- soft, nondistended, tenderness to palpation lower abdomen. Positive bowel sounds. Assessment & Plan Assessment/Plan (1) Colonic diverticular abscess: (2) Diverticulitis: (3) C. difficile colitis: PLAN: Plan I am following this patient in conjunction with Dr. Smith. He will independently evaluate this patient. Labs reviewed. WBC stable Continue IV and oral antibiotics Patient's loose stools are improving Increase diet to full liquids Possible discharge tomorrow or Friday pending patient's progress No surgical intervention recommended at this time We will continue to monitor this patient Charges/Coding Visit Charges Inpatient E&M: 74021 Subs Hosp L2
--- NOTE | 2025-07-27 08:45 | PCM.PN.HOSP ---
Subjective Subjective Doing well today, general surgery will attempt to advance her diet today see if she tolerates. Objective Data Objective Data Vital Signs: Vital Signs Temp Pulse Resp BP Pulse Ox O2 Del Method 97.8 F 73 18 113/46 L 93 Room Air 07/27/25 05:50 07/27/25 05:50 07/27/25 05:50 07/27/25 05:50 07/27/25 05:50 07/27/25 05:59 Oxygen Delivery Method Room Air Weight: 136 lb 0.403 oz Body Mass Index (BMI) 23.3 Intake & Output: Intake and Output for Last 24 Hours 07/26/25 07/27/25 07/28/25 03:59 03:59 03:59 Intake Total 2288.55 / 2288.55 1761.00 / 1761.00 692.5 / 692.5 Balance 2288.55 / 2288.55 1761.00 / 1761.00 692.5 / 692.5 Lab / Micro Data 07/27/25 06:38 07/27/25 06:38 Labs: Laboratory Results - last 24 hr 07/26/25 09:30: WBC 7.9, RBC 2.88 L, Hgb 8.4 L, Hct 26.0 L, MCV 90.3, MCH 29.2, MCHC 32.3 D, RDW Std Deviation 46.5 H, RDW Coeff of Crescencio 14.3, Plt Count 221, MPV 10.2, Immature Gran % (Auto) 0.600, Neut % (Auto) 66.2, Lymph % (Auto) 21.2, [place] % (Auto) 8.2, Eos % (Auto) 2.7, Baso % (Auto) 1.1 H, Absolute Neuts (auto) 5.2, Absolute Lymphs (auto) 1.67, Nucleated RBC % 0, Sodium 139, Potassium 3.1 L, Chloride 106, Carbon Dioxide 20.1 L, Anion Gap 13, BUN 13, Creatinine 0.61 L, Estim Creat Clear Calc 80.46, Est GFR (MDRD) Non-Af 100, BUN/Creatinine Ratio 20.5 H, Glucose 67 L, Calcium 8.6 07/27/25 06:38: WBC 8.1, RBC 2.90 L, Hgb 8.4 L, Hct 26.5 L, MCV 91.4, MCH 29.0, MCHC 31.7 L, RDW Std Deviation 47.1 H, RDW Coeff of Crescencio 14.0, Plt Count 213, MPV 10.4, Immature Gran % (Auto) 0.700, Neut % (Auto) 73.1 H, Lymph % (Auto) 17.1 L, [place] % (Auto) 6.1, Eos % (Auto) 2.0, Baso % (Auto) 1.0, Absolute Neuts (auto) 5.9, Absolute Lymphs (auto) 1.38, Nucleated RBC % 0, Sodium 139, Potassium 3.6, Chloride 106, Carbon Dioxide 16.4 L, Anion Gap 17 H, BUN 12, Creatinine 0.65 L, Estim Creat Clear Calc 75.50, Est GFR (MDRD) Non-Af 98, BUN/Creatinine Ratio 19.0, Glucose 58 L, Calcium 8.3 Micro: Microbiology 07/25/25 12:55 Stool Enteric Bacteriology - Final 07/25/25 12:55 Stool C. difficile GDH Antigen & Toxins - Final 07/25/25 12:55 Stool Clostridioides difficile (PCR) - Final Physical Exam Narrative General: Alert, Oriented x3, Cooperative, No apparent distress HEENT: Atraumatic, PERRLA, EOMI, Normocephalic Oral: Moist Mucosa Neck: Supple, No JVD Lungs: Diminished, Normal air movement, No rhonchi, No wheeze, No rales Cardiovascular: Regular rate, Regular Rhythm, Normal S1, Normal S2, No murmurs Abdomen: Soft, minimally tender, Non-Distended, No Hepato-splenomegaly Extremities: No edema, Capillary Refill Less than 3 Seconds Skin: No rashes, No breakdown Musculoskeletal: No Tenderness to Palpation of Joints or Extremities Neurological: No focal neurological deficits, moves all extremities Psych/Mental Status: Normal Affect, Appropriate Assessment & Plan Assessment/Plan (1) Colonic diverticular abscess: (2) Diverticulitis: (3) Leukocytosis: (4) Acute hyponatremia: PLAN: Plan 1. Sepsis secondary to acute diverticulitis with abscess ? Advance diet as tolerated at the discretion of general surgery ? Continue with broad-spectrum antibiotics ? No operative indication yet given her improvement we will continue to monitor ? Hyponatremia resolved 2. Essential HTN/HLD ? Hold her blood pressure medications given her sepsis ? Monitor and make adjustments as necessary ? Can likely resume her home medications on discharge, current blood pressures are stable 3. Anemia ? Potentially due to the diverticulitis and abscess formation ? Iron studies are inconclusive ? If there is no recovery of her hemoglobin on the outpatient side may benefit from a hematology evaluation DVT: Ashleighx Charges/Coding Visit Charges Inpatient E&M: 00354 Subs Hosp L2
[2025-07-27 09:52] VITALS: BP 111/47; PULSE 72; RESP 18; TEMP 36.7; O2SAT 100
[2025-07-27 10:12] VITALS: PULSE 72
[2025-07-27] MEDS: 0.9% Normal Saline (1000mL) 1,000 ML 75 ML IV ×2 (11:23→23:17)
[2025-07-27 13:16] VITALS: BP 125/46; PULSE 66; RESP 16; TEMP 36.7; O2SAT 99
[2025-07-27 17:19] VITALS: BP 117/49; PULSE 68; RESP 16; TEMP 36.7; O2SAT 99
[2025-07-27 23:01] VITALS: BP 127/53; PULSE 68; RESP 16; TEMP 36.9; O2SAT 97
[2025-07-28 01:59] VITALS: BP 118/49; PULSE 72; RESP 16; TEMP 37.2; O2SAT 97
[2025-07-28] MEDS: Vancomycin 125 MG/5 ML Susp PO.SYRINGE PO ×2 (05:28→11:34)
[2025-07-28] MEDS: Piperacil/Tazobactam 3.375 GM in 0.9% Normal Saline (50mL MB+) 50 ML IV (05:28)
[2025-07-28 05:48] VITALS: BMI 23.6
[2025-07-28 07:08] LABS: Hematocrit 25.6 % (37-47); Hemoglobin 8.2 g/dL (12.0-15.0); Immature Granulocytes Count 0.050 X10^3/uL (0.0-0.0); Mean Corp Hgb Conc 32.0 g/dL (32-36); Mean Corpuscular Volume 89.5 fL (81-99); Mean Platelet Vol. 10.5 fl (6.2-12.0); NRBC Flagged by Analyzer 0 % (0-5); Platelet Count 213 K/mm3 (150-450); RBC Distribution Width CV 14.1 % (11.6-14.6); RBC Distribution Width SD 46.0 fl (35.1-43.9); Red Blood Count 2.86 M/mm3 (4.2-5.4); White Blood Count 7.1 K/mm3 (4.4-11.0)
--- NOTE | 2025-07-28 07:18 | PCM.PN.SRG ---
Subjective Subjective Patient evaluated resting comfortably in the chair. She notes very minimal amount of lower abdominal soreness. She denies any nausea, vomiting, fever. She is tolerating a transitional diet. Her last episode of diarrhea was yesterday evening. She notes her stool has become more firm. Objective Data Objective Data Vital Signs: Vital Signs Temp Pulse Resp BP Pulse Ox O2 Del Method 98.9 F 72 16 118/49 L 97 Room Air 07/28/25 01:59 07/28/25 01:59 07/28/25 01:59 07/28/25 01:59 07/28/25 01:59 07/28/25 02:00 Oxygen Delivery Method Room Air Weight: 137 lb 9.095 oz Body Mass Index (BMI) 23.6 Intake & Output: Intake and Output for Last 24 Hours 07/26/25 07/27/25 07/28/25 23:59 23:59 23:59 Intake Total 2753.50 / 2753.50 2507.5 / 2507.5 50 / 50 Balance 2753.50 / 2753.50 2507.5 / 2507.5 50 / 50 Lab / Micro Data 07/28/25 06:34 07/28/25 06:34 Labs: Laboratory Results - last 24 hr 07/27/25 06:38: WBC 8.1, RBC 2.90 L, Hgb 8.4 L, Hct 26.5 L, MCV 91.4, MCH 29.0, MCHC 31.7 L, RDW Std Deviation 47.1 H, RDW Coeff of Crescencio 14.0, Plt Count 213, MPV 10.4, Immature Gran % (Auto) 0.700, Neut % (Auto) 73.1 H, Lymph % (Auto) 17.1 L, [place] % (Auto) 6.1, Eos % (Auto) 2.0, Baso % (Auto) 1.0, Absolute Neuts (auto) 5.9, Absolute Lymphs (auto) 1.38, Nucleated RBC % 0, Sodium 139, Potassium 3.6, Chloride 106, Carbon Dioxide 16.4 L, Anion Gap 17 H, BUN 12, Creatinine 0.65 L, Estim Creat Clear Calc 75.50, Est GFR (MDRD) Non-Af 98, BUN/Creatinine Ratio 19.0, Glucose 58 L, Calcium 8.3 07/27/25 09:51: POC Glucose 94 07/28/25 06:34: WBC 7.1, RBC 2.86 L, Hgb 8.2 L, Hct 25.6 L, MCV 89.5, MCH 28.7, MCHC 32.0, RDW Std Deviation 46.0 H, RDW Coeff of Crescencio 14.1, Plt Count 213, MPV 10.5, Immature Gran % (Auto) 0.700, Neut % (Auto) 71.3 H, Lymph % (Auto) 18.1 L, [place] % (Auto) 6.5, Eos % (Auto) 2.4, Baso % (Auto) 1.0, Absolute Neuts (auto) 5.0, Absolute Lymphs (auto) 1.28, Nucleated RBC % 0 Micro: Microbiology 07/24/25 23:35 Blood Culture (Wb) - Anticubital Right Blood Culture - Preliminary No growth in 48 hours. 07/24/25 23:35 Blood Culture (Wb) - Anticubital Left Blood Culture - Preliminary No growth in 48 hours. 07/25/25 12:55 Stool Enteric Bacteriology - Final 07/25/25 12:55 Stool C. difficile GDH Antigen & Toxins - Final 07/25/25 12:55 Stool Clostridioides difficile (PCR) - Final Physical Exam GI GI Narrative: Abdomen- soft, very slight discomfort in the low pelvic region. Positive bowel sounds Assessment & Plan Assessment/Plan (1) Diverticulitis: (2) Colonic diverticular abscess: (3) C. difficile colitis: PLAN: Plan I am following this patient in conjunction with Dr. Smith. He has independently evaluated this patient. Labs reviewed. Patient greatly improved She has tolerated a diet well and will be discharged to home on a low fiber diet for the next 2 weeks at least She will need to follow-up with Dr. Smith in approximately 10 days She will be discharged to home on Augmentin x 10 days Patient is ready for discharge Charges/Coding Visit Charges Inpatient E&M: 97363 Subs Hosp L2
[2025-07-28 07:52] LABS: Anion Gap 11 (5-15); BUN 6 mg/dL (4-19); BUN/Creat Ratio 11.7 RATIO (10-20); Calcium,Total 8.3 mg/dL (7.6-11.0); Carbon Dioxide 20.5 mmol/L (21.0-32.0); Chloride 107 mmol/L (98-108); Estimated Creatinine Clearance 98.16 ml/min (50-250); Glucose 80 mg/dL (70-99); Potassium 3.3 mmol/L (3.3-5.1)
[2025-07-28 09:37] VITALS: BP 124/53; PULSE 73; RESP 16; TEMP 36.8; O2SAT 99
--- NOTE | 2025-07-28 10:25 | DCINST_ITS ---
Discharge Instructions DC O2, CPAP, BIPAP needs Home O2 Discharge instructions: No Dressing / Incision Discharge Activity: Return to Normal Activity Dressing / Incision Call your doctor if you observe: Fever of 101 or Higher, Shortness of breath, Dizziness, Fainting spells, Swelling in the ankles, Chest pain and Increased palpitations (irregular heartbeat) Follow Up Care Test Results: Test results from this visit will be discussed in further detail at your follow- up appointment, if applicable. Discharge Plan Admission Admit Date/Time: 07/25/25 00:11 Attending Provider: Jono Wilcox Primary Care Provider: Annette Romano NP Consulting Providers: Nandini Boothe; Phan Smith Instructions Additional Instructions / Restrictions: Diet to follow for the next 2 weeks What are low-fiber foods? If your doctor tells you to follow a low-fiber diet, here are low-fiber foods you can eat and higher-fiber foods you should avoid. Remember to always choose foods that you would normally eat. Do not try any foods that caused you discomfort or allergic reactions in the past. If you are on a ?low-residue diet,? your food choices are even more restricted than those listed below. Talk with your cancer care team or dietitian if you have questions about certain foods or amounts. Meat, fish, poultry, and protein Eat: Tender cuts of meat Ground meat Tofu Fish and shellfish Smooth peanut butter Eggs Bake, broil, or poach meats, and use mild seasonings. Try preparing meats as stews, roasts, meatloaves, casseroles, sandwiches, and soups using ingredients on the approved lists. Scramble, poach, or boil eggs; or make omelets, souffl?s, custard, puddings, and casseroles, using ingredients noted below. You might want to ask your doctor, nurse, or dietitian about other foods may be OK for you to eat, and find out when you can go back to your normal diet. Avoid: All beans, nuts, peas, lentils, and legumes Processed meats, hot dogs, sausage, and cold cuts Tough meats with gristle Dairy: Milk and cheese Eat: Only in small to medium amounts and only if they don?t cause problems for you Milk, chocolate milk, buttermilk, and milk drinks Yogurt without seeds or granola Sour cream Cheese Cottage cheese Custard or pudding Ice cream or frozen desserts (without nuts) Cream sauces, soups, and casseroles You can use these items in desserts, snacks, or breads. Bread, cereals, and grains Eat: White breads, waffles, [place] toast, plain white rolls, or white bread toast Pretzels Plain pasta or noodles White rice Crackers, zwieback, jenn, and matzoh (no cracked wheat or whole grains) Cereals without whole grains, added fiber, seeds, raisins, or other dried fruit Use white flour for baking and making sauces. Grains, such as white rice, Cream of Wheat, or grits, should be well-cooked. Include the above grains in casseroles, dumplings, souffl?s, cheese strata, kugels, and pudding. Avoid any food that contains: Brown or wild rice Whole grains, cracked grains, or whole wheat products Kasha (buckwheat) Cornbread or cornmeal Daron crackers Bran Wheat germ Nuts Granola Coconut Dried fruit Seeds Vegetables and potatoes Eat: Tender, well-cooked fresh or canned vegetables without seeds, stems, or skins Cooked sweet or white potatoes without skins Strained vegetable juices without pulp or spices You can also eat these with cream sauces, or in soups, souffl?s, kugels, and casseroles. Avoid: All raw or steamed vegetables All types of beans Potatoes with skin Peas [place] Cabbage, broccoli, cauliflower, [place] sprouts, and greens Sauerkraut Onions Fruits and desserts Eat: Soft canned or cooked fruit without seeds or skins (small amounts) Small amounts of well-ripened banana Strained or clear juices Small amounts of soft cantaloupe or honeydew melon Cookies and other desserts without whole grains, dried fruit, berries, nuts, or coconut Sherbet and popsicles Serving suggestions include gelatins, milk shakes, frozen desserts, puddings, tapioca, cakes, and sauces. Avoid: All raw or dried fruits Berries Prune juice, prunes, and raisins Other foods Eat: Mayonnaise and mild salad dressings Margarine, butter, cream, and oils in small amounts Plain gravies Plain bouillon and broth Ketchup and mild mustard Spices, cooked herbs, and salt Sugar, honey, and syrup Clear jellies Hard candy and marshmallows Plain chocolate Avoid: Marmalade Pickles, olives, relish, and horseradish Popcorn Potato chips Liquids Keep in mind that low-fiber foods cause fewer bowel movements and smaller stools. You may need to drink extra fluids to help prevent constipation while you are on a low-fiber diet. Drink plenty of water unless your doctor tells you otherwise, and use juices and milk as noted above. Discharge Orders/Prescriptions Prescriptions: New amoxicillin-pot clavulanate 875-125 mg tablet 1 tab PO BID 10 Days Qty: 20 0RF vancomycin 125 mg capsule 125 mg PO Q6H 7 Days Qty: 28 0RF Continued atorvastatin [Lipitor] 40 mg tablet 40 mg PO DAILY telmisartan [Micardis] 40 mg tablet 40 mg PO DAILY oxycodone 5 mg Tablet 5 mg PO Q6H PRN (Reason: pain (scale score 7-10)) 3 Days Qty: 12 0RF Referrals / Follow Up: Phan Smith MD [Med Staff - Active Staff, General Surgery] - Within 2 Weeks Annette Romano NP, FIELD EDUCATION DIRECTOR-C [Primary Care Provider, Medical] - Within 1 Week Disposition Disposition (needs filled in before D/C Order can be placed): Home, Self Care
--- NOTE | 2025-07-28 11:22 | DS.PCM_ITS ---
Providers Date of Admission: 07/25/25 Primary Care Physician: Annette Romano, FABIAN Consultations 07/25/25 00:57 Consult: General Surgery Routine Consulting Provider: Phan Smith Reason for Consult: Diverticulitis with Diverticular abscess EMERGENT Consult: No Notified: Yes Date Notified: 07/25/25 Time Notified: 07:51 Method of Notification: Verbal Consult: Cyber Defense Analyst / Pulmonary Medicine Routine Consulting Provider: Intensivists/Pulmonary Med Reason for Consult: sepsis EMERGENT Consult: No Notified: Yes Date Notified: 07/25/25 Time Notified: 07:51 Method of Notification: Verbal Reason For Visit: SEPSIS 2/2 DIVERTICULITIS WITH DIVERTICULAR Diagnosis Discharge Diagnosis (1) Diverticulitis: Status: Acute Code(s): K57.92 - Diverticulitis of intestine, part unspecified, without perforation or abscess without bleeding (2) Colonic diverticular abscess: Status: Acute Code(s): K57.20 - Diverticulitis of large intestine with perforation and abscess without bleeding Medications at Discharge Home Medications atorvastatin 40 mg tablet (Lipitor) 40 mg PO DAILY high cholesterol 07/08/25 telmisartan 40 mg tablet (Micardis) 40 mg PO DAILY HTN 07/08/25 oxycodone 5 mg tablet 5 mg PO Q6H PRN pain (scale score 7-10) 3 days #12 tabs 07/10/25 amoxicillin 875 mg-potassium clavulanate 125 mg tablet 1 tab PO BID 10 days #20 tabs 07/28/25 vancomycin 125 mg capsule 125 mg PO Q6H 7 days #28 caps 07/28/25 Hospital Course Operations None Procedures None Summary of Care Provided Minutes Spent on Discharge: 35 Hospital Course: Per HPI: TOOTIE GOLDMAN, is a 65 F who presented to the emergency department [facility] on 07/24/2025 with chief complaint of abdominal pain, nausea, vomiting, and diarrhea. Patient was recently admitted here from 07/08/2025 through 07/10/2025 for diverticulosis with diverticular abscess. At that point in time the CT revealed 2 pelvic abscesses measuring 2.3 x 2.3 x 2.3 and 3.4 x 2.5 x 2.6 cm. Drainage was not pursued as general surgery felt that the abscesses were not amenable to percutaneous drainage. She was admitted to the medical floor with a consultation to general surgery and treated Zosyn while hospitalized and placed on Cipro and Flagyl at the time of discharge. She had a follow-up with Dr. Smith on 07/19/2025 and was slowly improving. The patient and her present today after her symptoms started early on the a.m. of 07/24/2025. Her reported it started at about 2:30 in the morning. She has been miserable since. She has had nausea, vomiting, and pretty profuse diarrhea. She has been feeling weak. They called general surgery's office and were transferred to the on-call physician who advised ongoing monitoring but the patient continued to feel poorly so they elected come to the emergency department this evening. Patient states he has lost about 10 pounds since this all started. Vital signs on presentation showed temperature of 97.8 with a Tmax of 100.1, heart rate 101, blood pressure 86/38, respiratory rate 16 and pulse ox was 96% on room air. CBC shows a marked leukocytosis with a white count of 18.4, chronic anemia but stable at 9.8 and a left shift with an 89.3% neutrophilia. Her last CBC on 07/15/2025 had no left shift and a normal white count. Chemistry panel showed hyponatremia with a sodium of 130 and hypochloremia with a chloride of 97. Glucose was 120. Lactic acid was less than 1. Lipase was normal at 23. UA is consistent with some dehydration with a specific gravity of 1.020 but not suggestive of infection. With her history of a repeat CT of the abdomen pelvis was performed and she was found to have stable colonic diverticulosis with sigmoid diverticulitis and associated related focal mural wall thickening and pericolic partially encapsulated air loci and fluid densities felt to be a large pocket of abscess at 7.5 x 6.5 x 4 cm. Patient was persistently hypotensive with a markedly elevated white count so sepsis was considered and was she was treated with fluid boluses, cultures were obtained and she was started on Zosyn for intra-abdominal coverage. Hospital Course: 1. Sepsis secondary to acute diverticulitis with abscess?65-year-old female presented to the hospital with abdominal pain as well as nausea vomiting and diarrhea, CT scan demonstrated to well sized abscesses that appeared to be walled off. General surgery did not want to operate during an acute inflammatory event and therefore she was monitored on Zosyn for several days and had significant improvement in her pain and therefore she was slowly started on a diet which she tolerated. She was also started on p.o. vancomycin as she had an incidental colonization of C. difficile however there is no toxin production and therefore in my estimation C. difficile was not a significant cause of illness at this time however since she is on Zosyn in the inpatient setting and will be discharged on Augmentin I do feel that at least covering her with p.o. vancomycin while on these antibiotics would be prudent given the fact that she tested positive both for the antigen and PCR, toxin was negative. I discussed with her the plan for discharge and she expressed understanding of the risks and benefits of going home today and would like to go home today. General surgery concurs in the discharge I would like to see her in 7 to 10 days postdischarge for evaluation as she may need surgical intervention once the inflammation has resolved. 2. Essential hypertension, hyperlipidemia, anemia are all chronic medical conditions which complicate her care. Her home medications were continued where appropriate. I do recommend outpatient monitoring of her hemoglobin, iron studies were inconclusive and this may be due to her diverticulitis and the abscess formation. If it does not recover in the outpatient setting may need to be evaluated by hematology in the outpatient side. Weight / BMI Weight Weight: 137 lb 9.095 oz Body Mass Index (BMI) 23.6 ABG / Lab / Microbiology Data 07/28/25 06:34 07/28/25 06:34 Laboratory: Laboratory Results - last 24 hr 07/28/25 06:34: WBC 7.1, RBC 2.86 L, Hgb 8.2 L, Hct 25.6 L, MCV 89.5, MCH 28.7, MCHC 32.0, RDW Std Deviation 46.0 H, RDW Coeff of Crescencio 14.1, Plt Count 213, MPV 10.5, Immature Gran % (Auto) 0.700, Neut % (Auto) 71.3 H, Lymph % (Auto) 18.1 L, Wells % (Auto) 6.5, Eos % (Auto) 2.4, Baso % (Auto) 1.0, Absolute Neuts (auto) 5.0, Absolute Lymphs (auto) 1.28, Nucleated RBC % 0, Sodium 138, Potassium 3.3, Chloride 107, Carbon Dioxide 20.5 L, Anion Gap 11, BUN 6, Creatinine 0.50 L, Estim Creat Clear Calc 98.16, Est GFR (MDRD) Non-Af 104, BUN/Creatinine Ratio 11.7, Glucose 80, Calcium 8.3 Microbiology: Microbiology 07/24/25 23:35 Blood Culture (Wb) - Anticubital Right Blood Culture - Preliminary No growth in 48 hours. 07/24/25 23:35 Blood Culture (Wb) - Anticubital Left Blood Culture - Preliminary No growth in 48 hours. 07/25/25 12:55 Stool Enteric Bacteriology - Final 07/25/25 12:55 Stool C. difficile GDH Antigen & Toxins - Final 07/25/25 12:55 Stool Clostridioides difficile (PCR) - Final D/C Instructions Call your doctor if you observe: Fever of 101 or Higher, Shortness of breath, Dizziness, Fainting spells, Swelling in the ankles, Chest pain and Increased palpitations (irregular heartbeat) DC O2, CPAP, BIPAP Needs Home O2 Discharge instructions: No Meaningful Use Info Meaningful Use Meaningful Use Diagnoses (Choose all that apply): None applicable Discharge Plan Admission Admit Date/Time: 07/25/25 00:11 Attending Provider: Jono Wilcox Primary Care Provider: Annette Romano NP Consulting Providers: Nandini Boothe; Phan Smith Instructions Additional Instructions / Restrictions: Diet to follow for the next 2 weeks What are low-fiber foods? If your doctor tells you to follow a low-fiber diet, here are low-fiber foods you can eat and higher-fiber foods you should avoid. Remember to always choose foods that you would normally eat. Do not try any foods that caused you discomfort or allergic reactions in the past. If you are on a ?low-residue diet,? your food choices are even more restricted than those listed below. Talk with your cancer care team or dietitian if you have questions about certain foods or amounts. Meat, fish, poultry, and protein Eat: Tender cuts of meat Ground meat Tofu Fish and shellfish Smooth peanut butter Eggs Bake, broil, or poach meats, and use mild seasonings. Try preparing meats as stews, roasts, meatloaves, casseroles, sandwiches, and soups using ingredients on the approved lists. Scramble, poach, or boil eggs; or make omelets, souffl?s, custard, puddings, and casseroles, using ingredients noted below. You might want to ask your doctor, nurse, or dietitian about other foods may be OK for you to eat, and find out when you can go back to your normal diet. Avoid: All beans, nuts, peas, lentils, and legumes Processed meats, hot dogs, sausage, and cold cuts Tough meats with gristle Dairy: Milk and cheese Eat: Only in small to medium amounts and only if they don?t cause problems for you Milk, chocolate milk, buttermilk, and milk drinks Yogurt without seeds or granola Sour cream Cheese Cottage cheese Custard or pudding Ice cream or frozen desserts (without nuts) Cream sauces, soups, and casseroles You can use these items in desserts, snacks, or breads. Bread, cereals, and grains Eat: White breads, waffles, Tamazight toast, plain white rolls, or white bread toast Pretzels Plain pasta or noodles White rice Crackers, zwieback, jenn, and matzoh (no cracked wheat or whole grains) Cereals without whole grains, added fiber, seeds, raisins, or other dried fruit Use white flour for baking and making sauces. Grains, such as white rice, Cream of Wheat, or grits, should be well-cooked. Include the above grains in casseroles, dumplings, souffl?s, cheese strata, kugels, and pudding. Avoid any food that contains: Brown or wild rice Whole grains, cracked grains, or whole wheat products Kasha (buckwheat) Cornbread or cornmeal Daron crackers Bran Wheat germ Nuts Granola Coconut Dried fruit Seeds Vegetables and potatoes Eat: Tender, well-cooked fresh or canned vegetables without seeds, stems, or skins Cooked sweet or white potatoes without skins Strained vegetable juices without pulp or spices You can also eat these with cream sauces, or in soups, souffl?s, kugels, and casseroles. Avoid: All raw or steamed vegetables All types of beans Potatoes with skin Peas [place] Cabbage, broccoli, cauliflower, [place] sprouts, and greens Sauerkraut Onions Fruits and desserts Eat: Soft canned or cooked fruit without seeds or skins (small amounts) Small amounts of well-ripened banana Strained or clear juices Small amounts of soft cantaloupe or honeydew melon Cookies and other desserts without whole grains, dried fruit, berries, nuts, or coconut Sherbet and popsicles Serving suggestions include gelatins, milk shakes, frozen desserts, puddings, tapioca, cakes, and sauces. Avoid: All raw or dried fruits Berries Prune juice, prunes, and raisins Other foods Eat: Mayonnaise and mild salad dressings Margarine, butter, cream, and oils in small amounts Plain gravies Plain bouillon and broth Ketchup and mild mustard Spices, cooked herbs, and salt Sugar, honey, and syrup Clear jellies Hard candy and marshmallows Plain chocolate Avoid: Marmalade Pickles, olives, relish, and horseradish Popcorn Potato chips Liquids Keep in mind that low-fiber foods cause fewer bowel movements and smaller stools. You may need to drink extra fluids to help prevent constipation while you are on a low-fiber diet. Drink plenty of water unless your doctor tells you otherwise, and use juices and milk as noted above. Discharge Orders/Prescriptions Prescriptions: New amoxicillin-pot clavulanate 875-125 mg tablet 1 tab PO BID 10 Days Qty: 20 0RF vancomycin 125 mg capsule 125 mg PO Q6H 7 Days Qty: 28 0RF Continued atorvastatin [Lipitor] 40 mg tablet 40 mg PO DAILY telmisartan [Micardis] 40 mg tablet 40 mg PO DAILY oxycodone 5 mg Tablet 5 mg PO Q6H PRN (Reason: pain (scale score 7-10)) 3 Days Qty: 12 0RF Referrals / Follow Up: Phan Smith MD [Med Staff - Active Staff, General Surgery] - 08/08/25 8:15 am Annette Romano GRAIN MERCHANDISING MANAGER, GRAIN MERCHANDISING MANAGER-C [Primary Care Provider, Medical] - Within 1 Week Disposition Disposition (needs filled in before D/C Order can be placed): Home, Self Care Charges/Coding Visit Charges Inpatient E&M: 70279 Disch Hosp >30min
--- NOTE | 2025-07-28 11:54 | PHA.DC.MR.R ---
Pharmacy [place] Med Reconciliation Pharmacy Service has performed discharge medication reconciliation for this patient. The patient's discharge medication list was reviewed for discrepancies and discrepancies were resolved. Medications at Discharge Home Medications atorvastatin 40 mg tablet (Lipitor) 40 mg PO DAILY high cholesterol 07/08/25 telmisartan 40 mg tablet (Micardis) 40 mg PO DAILY HTN 07/08/25 oxycodone 5 mg tablet 5 mg PO Q6H PRN pain (scale score 7-10) 3 days #12 tabs 07/10/25 amoxicillin 875 mg-potassium clavulanate 125 mg tablet 1 tab PO BID 10 days #20 tabs 07/28/25 vancomycin 125 mg capsule 125 mg PO Q6H 7 days #28 caps 07/28/25
== END 2025-07-28 12:27 | disposition home or self-care (01) | DRG 871 ==
LOC: ED 20:09 → ICU 07-25 00:23 → MS3 07-26 17:08
PROVIDERS: Physician Assistant; Admitting Provider Internal Medicine; Emergency Provider Surgery; PCP Nurse Practitioner Family; Visit Provider Family Medicine
DX: A41.9 Sepsis, unspecified organism (principal); R57.1 Hypovolemic shock; A04.72 Enterocolitis due to Clostridium difficile, not specified as recurrent; K57.20 Diverticulitis of large intestine with perforation and abscess without bleeding; E87.1 Hypo-osmolality and hyponatremia; I10 Essential (primary) hypertension; D64.9 Anemia, unspecified; E78.00 Pure hypercholesterolemia, unspecified; D72.829 Elevated white blood cell count, unspecified; R19.7 Diarrhea, unspecified; Z79.899 Other long term (current) drug therapy
CPT/HCPCS: 36415; 74177; 80048; 80053; 81001; 82533; 82728; 82962; 83540; 83550; 83605; 83690; 83735; 84100; 85025; 85045; 85610; 85730; 87040; 87493; 87506; 94668; 97161; 97165; 99285; Q9967; A4216; J2405